=== PATIENT | female | born 1960 | race Caucasian/White ===

== ENCOUNTER 2016-10-04 18:25 | Inpatient (IN) | payer MEDICAID ==
[~2016-10-04] VITALS: Ht 170.2 cm; Wt 52.6 kg
--- NOTE | 2016-10-04 19:07 | NUR ---
iv placed, labs drawn/sent except urine, accu-check done. sbar report to magy henry
[2016-10-04 19:11] LABS: BASOPHILS % (AUTO) 0.7 % (0.0-2.0); EOSINOPHILS # (AUTO) 0.2 K/uL (0.0-0.7); EOSINOPHILS % (AUTO) 2.4 % (0.0-7.0); HEMATOCRIT 40.3 % (37.0-47.0); HEMOGLOBIN 13.4 g/dL (12.0-16.0); LYMPHOCYTES % (AUTO) 28.3 % (20.5-51.5); MEAN CORPUSCULAR HEMOGLOBIN 29.9 uug (27.0-31.0); MEAN CORPUSCULAR HGB CONC 33 g/dL (32.0-37.0); MEAN CORPUSCULAR VOLUME 89.8 fL (81.0-99.0); MONOCYTES # (AUTO) 0.5 K/uL (0.1-1.30); MONOCYTES % (AUTO) 7.7 % (0.0-11.0); NEUTROPHILS # (AUTO) 4.4 K/uL (1.8-8.9); NEUTROPHILS % (AUTO) 60.9 % (38.5-71.5); PLATELET COUNT (AUTO) 360 K/uL (150-450); RED BLOOD CELL COUNT(AUTO) 4.48 MIL/uL (4.20-5.40); RED CELL DISTRIBUTION WIDTH 12.8 % (11.5-14.5); WHITE BLOOD COUNT (AUTO) 7.1 K/uL (4.0-11.2)
[2016-10-04 19:14] LABS: CALCIUM 9.2 mg/dL (8.5-10.1); CREATININE 0.8 mg/dL (0.6-1.3)
[2016-10-04 19:17] LABS: ETHANOL < 3 MG/DL (0-0)
[2016-10-04 19:20] LABS: ALBUMIN 3.7 g/dL (3.4-5.0); BILIRUBIN,DIRECT 0.1 mg/dL (0.0-0.2); BILIRUBIN,TOTAL 0.4 mg/dL (0.2-1.0); TOTAL PROTEIN, SERUM 7.5 g/dL (6.4-8.2)
[2016-10-04] MEDS ORDERED: HYDROCODONE/APAP 5-325MG TABLET PO ONE (20:30)
[2016-10-04] MEDS ORDERED: ONDANSETRON 4 MG/2 ML VIAL IV ONE (20:30)
--- NOTE | 2016-10-04 20:58 | NUR ---
Caden irwin in EDM - 10/04/16 at 2058 by ALY Patient discharged to home in stable conditon. Written and verbal after care instructions given. Patient verbalizes understanding of instructions.
--- NOTE | 2016-10-04 20:58 | NUR ---
Pt. admitted to TELE, under care of Dr. Davidson Belongs List completed
[2016-10-04 21:31] VITALS: BP 129/65
--- NOTE | 2016-10-04 21:31 | NUR ---
PATIENT WAS ADMITTED FROM ER FOR SYNCOPE. PATIENT IS ALERT AND ORIENTED AND VERBALLY ABLE TO LET NEEDS KNOWN. PATIENT CLAIMS THAT SHE'S NOT HOMELESS AND LIVES IN A HOUSE. PATIENT IS A TELE PATIENT THAT IS CURRENTLY NORMAL SINUS RHYTHM. NO APPARENT DISTRESS NOTED. CALL LIGHT WITHIN REACH.
[2016-10-04] MEDS ORDERED: ACETAMINOPHEN 325 MG TABLET PO PRN (22:30)
[2016-10-04] MEDS ORDERED: ONDANSETRON 4 MG/2 ML VIAL IV PRN (22:30)
[2016-10-04] MEDS ORDERED: NYSTATIN CREAM 30 GM TUBE TOP SCH (22:30)
[2016-10-04 23:36] VITALS: BP 130/62
[2016-10-04] MEDS ORDERED: MORPHINE SULFATE 2 MG/1 ML DISP.SYRIN ONE (23:42)
[2016-10-04] MEDS: MORPHINE SULFATE 2 MG/1 ML DISP.SYRIN IV PRN (23:58)
[2016-10-05] MEDS: IV 1/2NS 1000 ML 1,000 ML IV PRN ×2 (00:08→12:33)
[2016-10-05] MEDS ORDERED: ZOLPIDEM 5 MG TABLET PO PRN (01:45)
[2016-10-05] MEDS: ZOLPIDEM 5 MG TABLET PO PRN (01:48)
[2016-10-05] MEDS ORDERED: ZOLPIDEM 5 MG TABLET ONE (01:55)
[2016-10-05 04:00] VITALS: BP 92/50
[2016-10-05] MEDS: MORPHINE SULFATE 2 MG/1 ML DISP.SYRIN IV PRN ×5 (04:01→20:43)
[2016-10-05] MEDS ORDERED: MORPHINE SULFATE 2 MG/1 ML DISP.SYRIN ONE (04:06)
--- NOTE | 2016-10-05 05:42 | NUR ---
PATIENT AWAKE AND ALERT, SLEPT INTERMITTENTLY THROUGHOUT THE NIGHT, DID HAVE SOME C/O PAIN WHICH WERE RELIEVED WITH MEDICATION. PATIENT HAS CALL LIGHT WITHIN REACH, ALL NEEDS ATTENDED TO, WILL CONTINUE TO MONITOR
[2016-10-05 06:17] LABS: BASOPHILS # (AUTO) 0.1 K/uL (0.0-0.2); BASOPHILS % (AUTO) 0.8 % (0.0-2.0); EOSINOPHILS # (AUTO) 0.2 K/uL (0.0-0.7); EOSINOPHILS % (AUTO) 2.5 % (0.0-7.0); HEMATOCRIT 37.7 % (37.0-47.0); LYMPHOCYTES # (AUTO) 2.7 K/uL (0.8-4.8); MEAN CORPUSCULAR HEMOGLOBIN 28.9 uug (27.0-31.0); MEAN CORPUSCULAR HGB CONC 32 g/dL (32.0-37.0); MEAN CORPUSCULAR VOLUME 90.6 fL (81.0-99.0); MONOCYTES # (AUTO) 0.6 K/uL (0.1-1.30); MONOCYTES % (AUTO) 8.7 % (0.0-11.0); NEUTROPHILS # (AUTO) 3.7 K/uL (1.8-8.9); PLATELET COUNT (AUTO) 297 K/uL (150-450); RED BLOOD CELL COUNT(AUTO) 4.16 MIL/uL (4.20-5.40); RED CELL DISTRIBUTION WIDTH 13.1 % (11.5-14.5); WHITE BLOOD COUNT (AUTO) 7.3 K/uL (4.0-11.2)
[2016-10-05 07:10] LABS: ALBUMIN 3.2 g/dL (3.4-5.0); BILIRUBIN,TOTAL 0.6 mg/dL (0.2-1.0); CALCIUM 8.7 mg/dL (8.5-10.1); CREATININE 0.8 mg/dL (0.6-1.3); MAGNESIUM 1.8 mg/dL (1.8-2.4); PHOSPHOROUS 4.7 mg/dL (2.5-4.9); POTASSIUM 4.1 mmol/L (3.5-5.1); TOTAL PROTEIN, SERUM 6.4 g/dL (6.4-8.2)
[2016-10-05 07:26] LABS: THYROID STIMULATING HORMONE 2.176 mIU/mL (0.358-3.740)
--- NOTE | 2016-10-05 08:00 | NUR ---
awake alert and oriented, explained plan of care- verbalized understanding, on room air, denies of shortness of breath, denies if dizziness at this time, Tele SR 70's, up in commode, voided qs, safety measures maintained, call lite within reach
[2016-10-05] MEDS: PANTOPRAZOLE SODIUM 40 MG TABLET.DR PO SCH (08:13)
[2016-10-05] MEDS: NYSTATIN POWDER 15 GM BOTTLE TOP SCH ×2 (08:59→21:31)
--- NOTE | 2016-10-05 09:20 | NUR ---
c/o generalized pain, medicated with Morphine 2mg iv prn, BP 107/57, instructed not to get up alone, call lite within reach
[2016-10-05 11:27] VITALS: BP 99/53
--- NOTE | 2016-10-05 13:15 | NUR ---
@D echo done in the room
--- NOTE | 2016-10-05 13:30 | NUR ---
has rashes on chest and upper back- placed on contact isolation for possible scabies
[2016-10-05] MEDS ORDERED: PERMETHRIN 5% CREAM 60 GM TUBE TP ONE (13:45)
--- NOTE | 2016-10-05 13:58 | NUR ---
seen by Haile BAÑUELOS
[2016-10-05] MEDS: GABAPENTIN 100 MG CAPSULE PO SCH ×3 (15:40→20:37)
[2016-10-05 16:00] VITALS: BP 104/57
--- NOTE | 2016-10-05 16:00 | NUR ---
refused Elimite earlier, states" I don't have scabies and had talked to MD , I am pissed off and i would like to speak to her. I am embarrassed and mad that everybody wears this gown to come to my room, I want that taken out from my record" Luis Palma in formed and spoke to pt. Told by MANAGER PART to D/C isolation
--- NOTE | 2016-10-05 17:14 | NUR ---
contact isolation continued Addendum: 10/05/16 at 1718 by PEPE PARKER RN pt agreed to be on contact isolation
[2016-10-05] MEDS: ONDANSETRON 4 MG/2 ML VIAL IV PRN (17:31)
--- NOTE | 2016-10-05 17:36 | NUR ---
Neurontin not given- 1st dose given at 1540
--- NOTE | 2016-10-05 18:58 | NUR ---
urine sent to lab for UA and C/S- voiding qs to BR width assist, no distress noted, appetite poor, safety measures maintained
[2016-10-05 19:00] LABS: *BILIRUBIN,URIN NEGATIVE (NEGATIVE); *BLOOD, URINE Trace-intact (NEGATIVE); *CLARITY,URINE CLEAR (CLEAR); *COLOR,URINE YELLOW (YELLOW); *KETONES,URINE NEGATIVE (NEGATIVE); *PROTEIN,URINE NEGATIVE (NEGATIVE); *UROBILINOGEN,URINE 0.2 E.U./dl (NORMAL); LEUKOCYTE ESTERASE ,URINE NEGATIVE (NEGATIVE); NITRITE, URINE NEGATIVE (NEGATIVE); PH,URINE 7.5 (5.0-8.0); UGLUCOSE NEGATIVE (NEGATIVE)
--- NOTE | 2016-10-05 19:10 | NUR ---
PATIENT IN BED REMAIN IN CONTACT ISOLATION, NO SOB, NO CHEST PAIN,
[2016-10-05 19:20] LABS: *AMPHETAMINE, URINE NEGATIVE (NEGATIVE); *BARBITURATE, URINE NEGATIVE (NEGATIVE); *CANNABINOID, URINE NEGATIVE (NEGATIVE); *COCCAINE, URINE NEGATIVE (NEGATIVE); *OPIATE, URINE POSITIVE (NEGATIVE); *PHENCYCLIDINE SCREEN,URINE NEGATIVE (NEGATIVE)
[2016-10-05 19:24] LABS: BACTERIA,URINE NONE SEEN /HPF (NONE SEEN); RBC,URINE 0-3 /HPF (0-3); SQUAMOUS EPITHELIAL CELL,UR FEW /HPF (NONE SEEN); WBC,URINE 0-3 /HPF (0-3)
[2016-10-05 20:00] VITALS: BP 97/56
--- NOTE | 2016-10-05 20:00 | NUR ---
PATIENT COMPLAIN OF PAIN, CHECK BP 97/56, HR 56, EXPLAINED TO PATIENT THAT WE HAVE TO WAIT UNTIL SBP INCREASED UP TO 100, OFFERED OTHER PAIN MEDS BUT REFUSED, ALSO REFUSEF PVT PUMP COMPLAIN THAT IT CAUSES HER TO HAVE PAIN ON THE LEGS. EXPLAINED TO PATIENT THAT PVT IS TO PREVENT CLOT FOR FORMING, BUT ANSWERED "I DONT CARE".
[2016-10-05] MEDS: SIMVASTATIN 10 MG TABLET PO SCH (20:36)
--- NOTE | 2016-10-05 20:45 | NUR ---
PATIENT SBP READING WAS LOW AFTER TOOK BP 2X, BP BECAME NORMAL AT THIS TIME GIVEN PAIN MEDS, OFFERED THE PVT TO PUT IT BACK ON STILL REFUSED. NO SOB, NO CHEST PAIN, PAIN MEDS EFFECTIVE AFTER 10 MIN. CONT TO MONITOR.
[2016-10-06] MEDS: MORPHINE SULFATE 2 MG/1 ML DISP.SYRIN IV PRN ×6 (01:00→20:36)
[2016-10-06] MEDS: IV 1/2NS 1000 ML 1,000 ML IV PRN ×2 (01:50→14:37)
[2016-10-06 05:00] VITALS: BP 108/51
[2016-10-06] MEDS: PANTOPRAZOLE SODIUM 40 MG TABLET.DR PO SCH (06:06)
--- NOTE | 2016-10-06 06:16 | NUR ---
PATIENT SLEPT MOST OF THE NIGHT, ON PAIN MANAGEMENT, PAIN MEDS EFFECTIVE AT THIS TIME, ASSIST WITH TOILETING, NO EPISODE OF DIZZINESS,
[2016-10-06 06:57] LABS: BASOPHILS % (AUTO) 0.6 % (0.0-2.0); EOSINOPHILS # (AUTO) 0.2 K/uL (0.0-0.7); HEMATOCRIT 37.3 % (37.0-47.0); HEMOGLOBIN 12.1 g/dL (12.0-16.0); LYMPHOCYTES # (AUTO) 2.2 K/uL (0.8-4.8); LYMPHOCYTES % (AUTO) 34.8 % (20.5-51.5); MEAN CORPUSCULAR HEMOGLOBIN 29.5 uug (27.0-31.0); MEAN CORPUSCULAR HGB CONC 33 g/dL (32.0-37.0); MEAN CORPUSCULAR VOLUME 90.8 fL (81.0-99.0); MONOCYTES # (AUTO) 0.5 K/uL (0.1-1.30); MONOCYTES % (AUTO) 8.6 % (0.0-11.0); NEUTROPHILS # (AUTO) 3.5 K/uL (1.8-8.9); PLATELET COUNT (AUTO) 326 K/uL (150-450); RED BLOOD CELL COUNT(AUTO) 4.11 MIL/uL (4.20-5.40); RED CELL DISTRIBUTION WIDTH 12.9 % (11.5-14.5); WHITE BLOOD COUNT (AUTO) 6.4 K/uL (4.0-11.2)
[2016-10-06 08:14] LABS: ALBUMIN 3.3 g/dL (3.4-5.0); BILIRUBIN,TOTAL 0.4 mg/dL (0.2-1.0); CALCIUM 8.8 mg/dL (8.5-10.1); CREATININE 0.7 mg/dL (0.6-1.3); MAGNESIUM 1.8 mg/dL (1.8-2.4); PHOSPHOROUS 4.2 mg/dL (2.5-4.9); TOTAL PROTEIN, SERUM 6.5 g/dL (6.4-8.2)
[2016-10-06] MEDS: ONDANSETRON 4 MG/2 ML VIAL IV PRN ×2 (08:22→12:23)
[2016-10-06] MEDS: GABAPENTIN 100 MG CAPSULE PO SCH ×3 (08:25→16:33)
[2016-10-06] MEDS: NYSTATIN POWDER 15 GM BOTTLE TOP SCH ×2 (08:26→21:40)
--- NOTE | 2016-10-06 08:35 | NUR ---
awake, oriented x4, medicated for generalized pain with morphine 2mg iv, assisted to BR prior- voided qs, remains on contact isolation, expalined plan of care- verbalized understanding, call lite within reach
[2016-10-06 10:49] VITALS: BP 97/50
--- NOTE | 2016-10-06 11:30 | NUR ---
seen by PT- see notes
[2016-10-06 15:00] VITALS: BP 90/47
--- NOTE | 2016-10-06 18:54 | NUR ---
medicated for pain and nausea this shift, made comfortable as much as possible, contact isolation maintained, all needs attended and met, voiding qs to BR, resting at this time, no distress noted, safety measures maintained, call lite within reach
--- NOTE | 2016-10-06 19:10 | NUR ---
PATIENT ALERT ORIENTED, NO SOB NO CHEST PAIN, CONT ON PAIN MANAGEMENT, CALL LIGHT WITHIN REACH.
[2016-10-06 20:00] VITALS: BP 105/54
[2016-10-06] MEDS: SIMVASTATIN 10 MG TABLET PO SCH (20:34)
[2016-10-07] MEDS: MORPHINE SULFATE 2 MG/1 ML DISP.SYRIN IV PRN ×6 (00:18→16:24)
[2016-10-07] MEDS: ZOLPIDEM 5 MG TABLET PO PRN (01:16)
[2016-10-07] MEDS: IV 1/2NS 1000 ML 1,000 ML IV PRN ×2 (03:32→16:25)
[2016-10-07 04:00] VITALS: BP 134/61
--- NOTE | 2016-10-07 05:33 | NUR ---
PATIENT SLEEP INTERMITTENTLY, ON PAIN MANAGEMENT, PAIN MEDS EFFECTIVE AT THIS TIME, ASSIST WITH TOILETING, TREATMENT CONTINUE ON MULTIPLE RASHES, CONT ON ISOLATION.
[2016-10-07] MEDS: PANTOPRAZOLE SODIUM 40 MG TABLET.DR PO SCH (06:22)
[2016-10-07 07:31] LABS: BILIRUBIN,TOTAL 0.3 mg/dL (0.2-1.0); CALCIUM 8.5 mg/dL (8.5-10.1); CREATININE 0.8 mg/dL (0.6-1.3); MAGNESIUM 1.9 mg/dL (1.8-2.4); PHOSPHOROUS 3.9 mg/dL (2.5-4.9); POTASSIUM 4.1 mmol/L (3.5-5.1); TOTAL PROTEIN, SERUM 6.3 g/dL (6.4-8.2)
--- NOTE | 2016-10-07 08:00 | NUR ---
IN BED WITH NO SIGNS OF DISTRESS EXCEPT FOR GENERALIZED PAIN CONTINUE WITH PAIN MANAGEMENT
[2016-10-07 08:02] LABS: BASOPHILS % (AUTO) 0.3 % (0.0-2.0); EOSINOPHILS # (AUTO) 0.2 K/uL (0.0-0.7); EOSINOPHILS % (AUTO) 2.8 % (0.0-7.0); HEMOGLOBIN 11.3 g/dL (12.0-16.0); LYMPHOCYTES # (AUTO) 2.6 K/uL (0.8-4.8); LYMPHOCYTES % (AUTO) 41.5 % (20.5-51.5); MEAN CORPUSCULAR HEMOGLOBIN 31.3 uug (27.0-31.0); MEAN CORPUSCULAR HGB CONC 34 g/dL (32.0-37.0); MEAN CORPUSCULAR VOLUME 91.1 fL (81.0-99.0); MONOCYTES # (AUTO) 0.6 K/uL (0.1-1.30); MONOCYTES % (AUTO) 9.3 % (0.0-11.0); NEUTROPHILS # (AUTO) 2.9 K/uL (1.8-8.9); NEUTROPHILS % (AUTO) 46.1 % (38.5-71.5); PLATELET COUNT (AUTO) 303 K/uL (150-450); RED CELL DISTRIBUTION WIDTH 12.5 % (11.5-14.5); WHITE BLOOD COUNT (AUTO) 6.3 K/uL (4.0-11.2)
[2016-10-07 08:11] LABS: RED BLOOD CELL COUNT(AUTO) 3.62 MIL/uL (4.20-5.40)
[2016-10-07] MEDS: GABAPENTIN 100 MG CAPSULE PO SCH ×3 (08:34→16:30)
[2016-10-07] MEDS: NYSTATIN POWDER 15 GM BOTTLE TOP SCH ×2 (08:35→20:34)
--- NOTE | 2016-10-07 11:00 | NUR ---
SEEN BY PT/OT SEE NOTES
[2016-10-07 11:40] VITALS: BP 106/56
[2016-10-07] MEDS: ONDANSETRON 4 MG/2 ML VIAL IV PRN (13:00)
--- NOTE | 2016-10-07 13:45 | NUR ---
SPOKE WITH [facility] "Rhonda" reported that pt's scabies scraping on mid chest wall x 2 are negative for scabies. [address] cotto of negative scraping for scabies. No new order received.
--- NOTE | 2016-10-07 15:49 | NUR ---
DC PLAN INITIATED SPRING ASSEMBLER MADE AWARE
[2016-10-07 15:52] VITALS: BP_SYST 139; BP_SYST 98; BP_DIAS 42; BP_DIAS 96
[2016-10-07] MEDS ORDERED: MORPHINE SULFATE 4 MG/1 ML DISP.SYRIN IV ONE (18:00)
--- NOTE | 2016-10-07 18:37 | NUR ---
SEEN BY DR DALTON WITH NEW PAIN MEDS ORDER
--- NOTE | 2016-10-07 19:00 | NUR ---
PATIENT IN BED RESTING, NO SOB, NO CHEST PAIN
[2016-10-07 20:00] VITALS: BP 108/63
[2016-10-07] MEDS: SIMVASTATIN 10 MG TABLET PO SCH (20:31)
[2016-10-07] MEDS: MORPHINE SULFATE 4 MG/1 ML DISP.SYRIN IV PRN (22:00)
--- NOTE | 2016-10-07 23:47 | NUR ---
PATIENT COMPLAIN OF PAIN ON IV SITE, D/C IV, AND REINSERT PERIPHERAL IV AT LEFT ARM, SITE PATENT.
[2016-10-08] MEDS: ZOLPIDEM 5 MG TABLET PO PRN (01:10)
[2016-10-08] MEDS: MORPHINE SULFATE 4 MG/1 ML DISP.SYRIN IV PRN ×7 (01:41→23:05)
[2016-10-08 04:00] VITALS: BP 102/61
[2016-10-08] MEDS: IV 1/2NS 1000 ML 1,000 ML IV PRN ×2 (05:38→17:35)
[2016-10-08] MEDS: PANTOPRAZOLE SODIUM 40 MG TABLET.DR PO SCH (05:38)
--- NOTE | 2016-10-08 07:37 | NUR ---
AWAKE ALERT STILL C/O GENERALIZED PAIN 04/29, CONTINUE WITH PAIN MANAGEMENT ORDERED
[2016-10-08] MEDS: GABAPENTIN 100 MG CAPSULE PO SCH ×3 (08:28→16:16)
[2016-10-08] MEDS: NYSTATIN POWDER 15 GM BOTTLE TOP SCH ×2 (08:30→20:00)
[2016-10-08] MEDS: ONDANSETRON 4 MG/2 ML VIAL IV PRN (08:32)
--- NOTE | 2016-10-08 11:30 | NUR ---
NO ACUTE CHANGE, CONTINUE WITH PAIN MANAGEMENT WITH TEMPORARY RELIEF FROM MORPHINE 4MG Q3 HRS. CLOSELY MONITORED
[2016-10-08 11:51] VITALS: BP 107/56
[2016-10-08 15:34] VITALS: BP 95/52
--- NOTE | 2016-10-08 16:47 | NUR ---
CONTINUE WITH DC PLANNING, SEE HAZARD MITIGATION OFFICER NOTES
[2016-10-08 19:00] VITALS: BP 105/60
[2016-10-08] MEDS: SIMVASTATIN 10 MG TABLET PO SCH (20:00)
--- NOTE | 2016-10-08 23:35 | NUR ---
Patient with no bm for 3-4 days per pt report, MD cotto in nursing station, made aware, with new order for Milk of Mg hs prn, noted and will carry out. will continue to monitor.
[2016-10-09] MEDS: ZOLPIDEM 5 MG TABLET PO PRN (01:06)
[2016-10-09] MEDS: MORPHINE SULFATE 4 MG/1 ML DISP.SYRIN IV PRN ×3 (02:03→08:55)
[2016-10-09] MEDS: MAGNESIUM HYDROXIDE 30 ML LIQUID UDC PO PRN (02:09)
[2016-10-09] MEDS ORDERED: MAGNESIUM HYDROXIDE 30 ML LIQUID UDC ONE (02:17)
[2016-10-09 04:00] VITALS: BP 91/51
[2016-10-09] MEDS: IV 1/2NS 1000 ML 1,000 ML IV PRN ×2 (05:29→17:40)
--- NOTE | 2016-10-09 05:56 | NUR ---
PATIENT SLEPT INTERMITTENTLY, COMPLAINED OF GENERALIZED PAIN THROUGH OUT THE NIGHT AND MEDICATION WAS GIVEN ORDERED WITH SOME RELIEF. PATIENT HAS CALL LIGHT WITHIN REACH, ALL NEEDS ATTENDED TO, WILL CONTINUE TO MONITOR.
[2016-10-09] MEDS: PANTOPRAZOLE SODIUM 40 MG TABLET.DR PO SCH (06:18)
--- NOTE | 2016-10-09 07:30 | NUR ---
PT RECEIVED IN BED AWAKE.PT IS AXOX4.V/S ARE STABLE.NO C/O PAIN NOTED.BREAKFAST SERVED.
[2016-10-09] MEDS: GABAPENTIN 100 MG CAPSULE PO SCH ×3 (08:00→16:02)
[2016-10-09] MEDS: NYSTATIN POWDER 15 GM BOTTLE TOP SCH ×2 (08:01→20:03)
[2016-10-09] MEDS: ONDANSETRON 4 MG/2 ML VIAL IV PRN (09:03)
[2016-10-09 11:22] VITALS: BP 96/51
[2016-10-09] MEDS: HYDROCODONE/APAP 5-325MG TABLET PO PRN ×2 (11:50→21:59)
[2016-10-09] MEDS: MORPHINE SULFATE 2 MG/1 ML DISP.SYRIN IV PRN ×2 (14:32→20:04)
[2016-10-09 15:31] VITALS: BP 96/50
[2016-10-09 19:00] VITALS: BP 104/63
[2016-10-09] MEDS: SIMVASTATIN 10 MG TABLET PO SCH (20:03)
[2016-10-10] MEDS: MORPHINE SULFATE 2 MG/1 ML DISP.SYRIN IV PRN ×6 (00:02→22:08)
[2016-10-10] MEDS: ZOLPIDEM 5 MG TABLET PO PRN (01:27)
[2016-10-10 04:00] VITALS: BP 101/63
--- NOTE | 2016-10-10 05:52 | NUR ---
PATIENT SLEPT INTERMITTENTLY THROUGH OUT THE NIGHT, DID C/O GENERALIZED PAIN THROUGHOUT THE NIGHT, MEDICATION PROVIDED ORDERED FOR PAIN. PATIENT HAS CALL LIGHT WITHIN REACH, ALL NEEDS ATTENDED TO.
[2016-10-10] MEDS: PANTOPRAZOLE SODIUM 40 MG TABLET.DR PO SCH (06:03)
--- NOTE | 2016-10-10 06:22 | NUR ---
PATIENT HAS NOT HAD A BM IN A FEW DAYS, OFFERED PRN MILK OF MG, AND ENCOURAGED TO AMBULATE, PATIENT REFUSED, STATES "I'M NOT CONSTIPATED, WHEN I NEED TO GO I'LL GO." CONTINUES TO COMPLAIN OF GENERALIZED PAIN, OFFERED WARM AND COLD PACKS BUT REFUSES, REQUESTING ONLY PAIN MED, WITH LITTLE RELIEF PER PT REPORT. NO ACUTE DISTRESS NOTED, DOZING ON AND OFF THROUGHOUT NIGHT. BRP WITH ASSISTANCE. SAFETY MAINTAINED. WILL CONTINUE TO MONITOR.
[2016-10-10] MEDS: GABAPENTIN 100 MG CAPSULE PO SCH ×3 (08:24→16:05)
[2016-10-10] MEDS: NYSTATIN POWDER 15 GM BOTTLE TOP SCH ×2 (08:24→20:28)
[2016-10-10 11:47] VITALS: BP 94/60
[2016-10-10] MEDS ORDERED: Gabapentin PO (12:30)
[2016-10-10] MEDS ORDERED: MULT-70 PO (12:30)
[2016-10-10] MEDS ORDERED: Acetaminophen PO (12:30)
[2016-10-10] MEDS ORDERED: OMEG500C PO (12:30)
[2016-10-10] MEDS ORDERED: CALC-880 PO (12:47)
--- NOTE | 2016-10-10 13:09 | NUR ---
Spoke to the patient about her discharge and she was concerned that her friend is not able to pick her up. Asked if the address that we have is the correct address and asked if there are some social issues, she stated that there is no social issue but she is [place] and will be staying a her friend's home. Offered to place her in a usp if needed but she declined. Also offered to call her friends to arrange for her tack picker but she also declined. Offered her a bus token and she agreed with the bus token. She confirmed that she will follow-up with her PCP. Her RN, Tammy, was updated on her discharge plan.
[2016-10-10 15:52] VITALS: BP 115/64
--- NOTE | 2016-10-10 17:26 | NUR ---
PATIENT IN BED RESTING, NO S/S OF NOTES. C/O OF PAIN DURING MY SHIFT, REPORTING FEELING PINS AND NEEDLES OVER HER BODY, "I'M IN SO MUCH PAIN" MEDICATED ORDERED. PATIENT WAS SUPPOSED TO BE DISCHARGE TODAY, AND MORPHINE AND GABAPENTIN WAS DC BY MD. AFTER PATIENT TALKING TO DR. CRISTINA, MEDICATIONS WERE REORDERED AND DECIDED TO STAYED ONE MORE DY BY MD ORDERS. SAFETY AND COMFORT PROVIDED BY STAFF. WILL CONTINUE MONITORING.
[2016-10-10 19:00] VITALS: BP 99/60
[2016-10-10] MEDS: SIMVASTATIN 10 MG TABLET PO SCH (20:25)
[2016-10-10] MEDS: OMEGA-3 FATTY ACIDS/FISH OIL CAPSULE PO SCH (20:25)
[2016-10-11] MEDS: MORPHINE SULFATE 2 MG/1 ML DISP.SYRIN IV PRN ×8 (01:11→22:02)
[2016-10-11] MEDS: ZOLPIDEM 5 MG TABLET PO PRN (01:12)
[2016-10-11 04:00] VITALS: BP 94/45
[2016-10-11] MEDS: ONDANSETRON 4 MG/2 ML VIAL IV PRN ×3 (04:20→16:03)
[2016-10-11] MEDS: PANTOPRAZOLE SODIUM 40 MG TABLET.DR PO SCH (06:09)
[2016-10-11 06:58] LABS: ALBUMIN 3.2 g/dL (3.4-5.0); BILIRUBIN,TOTAL 0.2 mg/dL (0.2-1.0); CALCIUM 8.5 mg/dL (8.5-10.1); CREATININE 0.6 mg/dL (0.6-1.3); MAGNESIUM 1.9 mg/dL (1.8-2.4); PHOSPHOROUS 3.8 mg/dL (2.5-4.9); POTASSIUM 3.6 mmol/L (3.5-5.1); TOTAL PROTEIN, SERUM 6.5 g/dL (6.4-8.2)
[2016-10-11 07:48] LABS: HEMATOCRIT 35.4 % (37.0-47.0); HEMOGLOBIN 11.5 g/dL (12.0-16.0); MEAN CORPUSCULAR HEMOGLOBIN 29.8 uug (27.0-31.0); MEAN CORPUSCULAR HGB CONC 33 g/dL (32.0-37.0); MEAN CORPUSCULAR VOLUME 91.9 fL (81.0-99.0); PLATELET COUNT (AUTO) 342 K/uL (150-450); RED BLOOD CELL COUNT(AUTO) 3.85 MIL/uL (4.20-5.40); RED CELL DISTRIBUTION WIDTH 12.4 % (11.5-14.5); WHITE BLOOD COUNT (AUTO) 7.8 K/uL (4.0-11.2)
[2016-10-11] MEDS: GABAPENTIN 100 MG CAPSULE PO SCH ×3 (09:55→16:04)
[2016-10-11] MEDS: OMEGA-3 FATTY ACIDS/FISH OIL CAPSULE PO SCH ×2 (09:56→21:24)
[2016-10-11] MEDS: MULTIVITAMINS,THERAPEUTIC TABLET PO SCH (09:56)
[2016-10-11] MEDS: NYSTATIN POWDER 15 GM BOTTLE TOP SCH ×2 (09:58→21:52)
[2016-10-11 11:21] LABS: LYMPHOCYTES % (AUTO) 30.7 % (20.5-51.5); MONOCYTES % (AUTO) 8.1 % (0.0-11.0); NEUTROPHILS % (AUTO) 59.3 % (38.5-71.5)
[2016-10-11 11:22] LABS: BASOPHILS % (AUTO) 0.4 % (0.0-2.0); EOSINOPHILS # (AUTO) 0.1 K/uL (0.0-0.7); EOSINOPHILS % (AUTO) 1.5 % (0.0-7.0); LYMPHOCYTES # (AUTO) 2.4 K/uL (0.8-4.8); MONOCYTES # (AUTO) 0.6 K/uL (0.1-1.30); NEUTROPHILS # (AUTO) 4.7 K/uL (1.8-8.9)
[2016-10-11 12:10] VITALS: BP 103/53
[2016-10-11 15:31] VITALS: BP 90/50
--- NOTE | 2016-10-11 16:56 | NUR ---
PATIENT BEEN IN BED RESTING, SLEEPING INTERMITTENTLY. NO S/S OF DISTRESS NOTED. FLACC SCORE ZERO FOR PAIN. FAMILY MEMBERS AT THE BEDSIDE IN THE AFTERNOON. PATIENT WAS ABLE TO TOLERATE HER MEALS WITH NO S/S OF ASPIRATION. SWALLOW EVAL VIDEO WAS DONE TODAY @1600. IV STILL INTACT. BM TODAY. SAFETY AND COMFORT PROVIDED BY STAFF. WILL CONTINUE MONITORING Addendum: 10/11/16 at 1715 by NOHEMI MALOCLM RN WRONG PATIENT
--- NOTE | 2016-10-11 17:18 | NUR ---
PATIENT IN BED RESTING AND WATCHING TV. NO S/S OF DISTRESS NOTED. C/O OF PAIN DURING MY SHIFT. MEDICATED ORDERED. AMBULATED WITH PT, TOLERATED WELL. IV STILL INTACT. SAFETY AND COMFORT PROVIDED BY STAFF. THORACIC BRACE WAS PROVIDED TO PATIENT. WILL CONTINUE MONITORING.
[2016-10-11 19:00] VITALS: BP 90/51
--- NOTE | 2016-10-11 19:00 | NUR ---
PATIENT ALERT ORIENTED, NO SOB, NO CHEST PAIN NOTED,
[2016-10-11] MEDS: SIMVASTATIN 10 MG TABLET PO SCH (21:24)
[2016-10-12] MEDS: MORPHINE SULFATE 2 MG/1 ML DISP.SYRIN IV PRN ×8 (01:01→23:31)
[2016-10-12] MEDS: ZOLPIDEM 5 MG TABLET PO PRN (01:39)
[2016-10-12 04:00] VITALS: BP 97/52
--- NOTE | 2016-10-12 04:55 | NUR ---
PATIENT SLEEP ON AND OFF, ON PAIN MANAGEMENT, PAIN MEDS EFFECTIVE AT THIS TIME, NO SOB, NO CHEST PAIN NOTED, NO S/S OF DISTRESS.
[2016-10-12] MEDS: PANTOPRAZOLE SODIUM 40 MG TABLET.DR PO SCH (06:01)
[2016-10-12] MEDS: GABAPENTIN 100 MG CAPSULE PO SCH ×3 (08:32→17:30)
[2016-10-12] MEDS: MULTIVITAMINS,THERAPEUTIC TABLET PO SCH (08:32)
[2016-10-12] MEDS: OMEGA-3 FATTY ACIDS/FISH OIL CAPSULE PO SCH ×2 (08:32→20:28)
[2016-10-12] MEDS: ONDANSETRON 4 MG/2 ML VIAL IV PRN (08:36)
[2016-10-12] MEDS: NYSTATIN POWDER 15 GM BOTTLE TOP SCH ×2 (08:36→20:28)
[2016-10-12 11:02] VITALS: BP 100/49
--- NOTE | 2016-10-12 17:51 | NUR ---
PATIENT BEEN IN BED RESTING. C/O OF GENERALIZED PAIN DURING THE DAY, MEDICATED ORDERED. REDNESS STILL NOTED UNDER BOTH BREAST, POWDER MEDICATION APPLIED. PT WILL COME IN FRIDAY TO TEACH HER ABOUT THORACIC BRACE PLACEMENT. NO S/S OF DISTRESS NOTED AT THIS MOMENT. GOOD APPETITE. IV STILL INTACT, PATENT, MILD REDNESS AROUND IT BUT IT DOES NOT SEEM INFILTRATED. WILL CONTINUE MONITORING. SAFETY AND COMFORT PROVIDED BY STAFF.
[2016-10-12 19:00] VITALS: BP 90/57
--- NOTE | 2016-10-12 19:29 | NUR ---
PATIENT ALERT ORIENTED ABLE TO MAKE NEEDS KNOWN, ON PAIN MANAGEMENT, PAIN MEDS EFFECTIVE AT THIS TIME, CONT TO MONITOR.
[2016-10-12] MEDS: SIMVASTATIN 10 MG TABLET PO SCH (20:28)
[2016-10-13] MEDS: ZOLPIDEM 5 MG TABLET PO PRN ×2 (01:07→22:05)
[2016-10-13] MEDS: MORPHINE SULFATE 2 MG/1 ML DISP.SYRIN IV PRN ×8 (03:03→23:58)
[2016-10-13 04:00] VITALS: BP 94/47
[2016-10-13] MEDS: PANTOPRAZOLE SODIUM 40 MG TABLET.DR PO SCH (06:05)
--- NOTE | 2016-10-13 07:00 | NUR ---
SLEPT MOST OF THE NIGHT NO SOB NO CHEST PAIN NO S/S OF DISTRESS.
--- NOTE | 2016-10-13 08:00 | NUR ---
Discussed plan of care with pt re: fall precaution and proper pain management. Pt agreeable with plan of care. Applied nystatin under breast folds redness. pt is in no acute distress. Call light is within reach.
[2016-10-13] MEDS: GABAPENTIN 100 MG CAPSULE PO SCH ×3 (08:07→16:24)
[2016-10-13] MEDS: OMEGA-3 FATTY ACIDS/FISH OIL CAPSULE PO SCH ×2 (08:07→20:31)
[2016-10-13] MEDS: MULTIVITAMINS,THERAPEUTIC TABLET PO SCH (08:07)
[2016-10-13] MEDS: NYSTATIN POWDER 15 GM BOTTLE TOP SCH ×2 (08:08→20:33)
[2016-10-13] MEDS: ONDANSETRON 4 MG/2 ML VIAL IV PRN ×4 (09:02→22:05)
[2016-10-13 10:18] LABS: *VITAMIN D 25-OH VIT D 7.2 ng/mL (.); *VITAMIN D 25-OH, D2 <1.0 ng/mL (.); *VITAMIN D 25-OH, D3 7.2 ng/mL (.)
[2016-10-13 11:14] VITALS: BP 101/56
--- NOTE | 2016-10-13 13:00 | NUR ---
Physical therapy saw pt and instructed on how to put on her brace. Pt tolerated physical therapy. Pt sat on chair for 30 mins and unable to tolerate brace and request for it to be taken off. Call light is within reach.
[2016-10-13] MEDS: MAGNESIUM HYDROXIDE 30 ML LIQUID UDC PO PRN (13:23)
[2016-10-13 15:06] VITALS: BP 100/58
--- NOTE | 2016-10-13 18:30 | NUR ---
Plan of care effective. Pts pain managed with morphine no fall noted this shift. Pt is in no acute distress. Call light is within reach.
[2016-10-13 20:00] VITALS: BP 100/50
[2016-10-13] MEDS: SIMVASTATIN 10 MG TABLET PO SCH (20:31)
--- NOTE | 2016-10-13 22:16 | NUR ---
Received this patient awake, asking for her pain meds. & Zofran, plus more soda cans. Medicated for pain & nausea PRN. Patient refused to take her routine fish oil medication & threw it on the floor. Per morning RN, patient has constipation issues. Offered Prune 2 cups of prune juice but patient yelled, stated she's not constipated & she just had a large BM this afternoon. Patient attempted to hit the undersigned w/ unopened prune juice cups. Instructed patient not to do it again because her aggressive behavior is not acceptable. Charge nurse aware.
[2016-10-14] MEDS: MORPHINE SULFATE 2 MG/1 ML DISP.SYRIN IV PRN ×7 (03:00→21:33)
[2016-10-14] MEDS: PANTOPRAZOLE SODIUM 40 MG TABLET.DR PO SCH (05:46)
[2016-10-14 06:00] VITALS: BP 105/50
[2016-10-14] MEDS: MULTIVITAMINS,THERAPEUTIC TABLET PO SCH (08:33)
[2016-10-14] MEDS: GABAPENTIN 100 MG CAPSULE PO SCH ×3 (08:33→16:36)
[2016-10-14] MEDS: ONDANSETRON 4 MG/2 ML VIAL IV PRN ×2 (08:33→16:36)
--- NOTE | 2016-10-14 08:33 | NUR ---
RECEIVED PATIENT AWAKE ALERT AND ORIENTED EATING HER BREAKFAST BUT STATED THAT SHE HAS NAUSEA,MEDICATED WITH ZOFRAN AD ORDERED AT THIS TIME AND WILL OBSERVE.
[2016-10-14] MEDS: OMEGA-3 FATTY ACIDS/FISH OIL CAPSULE PO SCH ×2 (08:37→21:00)
[2016-10-14] MEDS: NYSTATIN POWDER 15 GM BOTTLE TOP SCH ×2 (08:37→21:31)
[2016-10-14 11:00] VITALS: BP 100/61
[2016-10-14 15:05] VITALS: BP 100/66
--- NOTE | 2016-10-14 17:00 | NUR ---
IV SITE CHANGED TO HER LEFT ANTECUBITAL WITH ONE ATTEMPT SHE CONTINUES TO REQUEST FOR PAIN MEDICATIONS EVERY 3 HOURS ORDERED AND HELPFUL.SHE WAS SEEN BY THE PHYSICAL THERAPY WITH CONTINUOUS EDUCATION ON HER BACK BRACE.MADE COMFORTABLE.
--- NOTE | 2016-10-14 19:10 | NUR ---
PATIENT ALERT ORIENTED ABLET TO MAKE NEEDS KNOWN, NO SOB, NO CHEST PAIN, CALL LIGHT WITHIN REACH.
[2016-10-14 20:00] VITALS: BP 112/62
[2016-10-14] MEDS: SIMVASTATIN 10 MG TABLET PO SCH (21:35)
[2016-10-15] MEDS: MORPHINE SULFATE 2 MG/1 ML DISP.SYRIN IV PRN ×6 (00:36→16:23)
[2016-10-15] MEDS: ZOLPIDEM 5 MG TABLET PO PRN (01:47)
--- NOTE | 2016-10-15 05:43 | NUR ---
PATIENT SLEEP INTERMITTENLY, CONT ON PAIN MANAGEMENT, NO SOB NO CHEST PAIN,
--- NOTE | 2016-10-15 05:44 | NUR ---
PATIENT DRINK JUICE, AND BOOST SUPPLEMENT, EAT CRACKERS, IN THE MIDDLE OF THE NIGHT.
[2016-10-15] MEDS: PANTOPRAZOLE SODIUM 40 MG TABLET.DR PO SCH (06:44)
--- NOTE | 2016-10-15 08:30 | NUR ---
RECEIVED PATIENT IN BED AWAKE ALERT AND ORIENTED WITH MULTIPLE COMPLAINTS STILL REQUESTING FOR PAIN MEDICATIONS EVERY 3 HOURS AND STATED THAT HER PAIN IS STILL INTENSE AND HAS NO APPETITE ALSO STATED THAT SHE FEELS THAT HER FOOD IS NOT GOING DOWN SMOOTH IT SHOULD. CALLED AND LEFT MESSAGE FOR DR DALTON.
[2016-10-15] MEDS: OMEGA-3 FATTY ACIDS/FISH OIL CAPSULE PO SCH ×2 (09:00→20:41)
[2016-10-15] MEDS: MULTIVITAMINS,THERAPEUTIC TABLET PO SCH (09:17)
[2016-10-15] MEDS: GABAPENTIN 100 MG CAPSULE PO SCH ×3 (09:17→16:22)
[2016-10-15] MEDS: NYSTATIN POWDER 15 GM BOTTLE TOP SCH ×2 (09:20→20:40)
[2016-10-15] MEDS: ONDANSETRON 4 MG/2 ML VIAL IV PRN ×3 (09:55→20:43)
--- NOTE | 2016-10-15 10:08 | NUR ---
BLOOD PRESSURE AT THIS TIME IS 81/52 PATIENT DENIES SYMPTOMS NEW ORDER FROM MILES BAÑUELOS RECEIVED FOR NS BOLUS AND GIVEN. Addendum: 10/15/16 at 1055 by EMILI GOMES RN ERROR WRONG PATIENT.
[2016-10-15 11:24] VITALS: BP 91/50
--- NOTE | 2016-10-15 12:20 | NUR ---
DR DALTON HERE AND SEEN PATIENT AND AWARE THAT PATIENT IS COMPLAINING OF NO APPETITE AND DIFFICULTY WITH FOOD WITH NEW ORDERS.PATIENT PLACED NOTHING BY MOUTH AT THIS TIME AND PATIENT INSTRUCTED.
--- NOTE | 2016-10-15 13:50 | NUR ---
SLT HERE TO SEE PATIENT AND STATED THAT THE VIDEO SWALLOW WILL BE AROUND 1600 TODAY.PATIENT AWARE NOTHING BY MOUTH STATUS MAINTAINED AND PATIENT EDUCATED.
--- NOTE | 2016-10-15 15:37 | NUR ---
PATIENT PICKED UP BY BED TO RADIOLOGY DEPARTMENT FOR VIDEO SWALLOW STUDIES ORDERED.
[2016-10-15 15:38] VITALS: BP 87/52
[2016-10-15] MEDS ORDERED: BARIUM SULFATE 148 GM SUSP.RECON PO ONE (16:56)
[2016-10-15] MEDS ORDERED: BARIUM SULFATE 240 ML ORAL.SUSP PO ONE (16:56)
[2016-10-15 17:30] VITALS: BP 92/60
--- NOTE | 2016-10-15 18:00 | NUR ---
RESULTS OF THE VIDEO SWALLOW REVIEWED BY DR DALTON WITH NEW ORDERS.PATIENT TOLERATED DIET ORDERED.CURRENT BLOOD PRESSURE NOW IS 92/60
[2016-10-15 19:00] VITALS: BP 91/56
[2016-10-15] MEDS: HYDROCODONE/APAP 5-325MG TABLET PO PRN (19:56)
--- NOTE | 2016-10-15 19:56 | NUR ---
Hand off report to María Grant. Pt in bed, resting. C/o gen pain 01/27, was given [place] as prescribed. safety observed. call light within reach.
[2016-10-15] MEDS: SIMVASTATIN 10 MG TABLET PO SCH (20:41)
--- NOTE | 2016-10-15 21:00 | NUR ---
Dozing intermittently. Cooperative, appears anxious. Needing a lot of TLC and psychological support. C/o nausea, relieved by Zofran. Call jolly in reach and reminded to call RN for assistance.
[2016-10-16] MEDS: ONDANSETRON 4 MG/2 ML VIAL IV PRN ×3 (00:16→08:22)
--- NOTE | 2016-10-16 00:20 | NUR ---
Pt appears to be sleeping during rounds. Called RN c/o "nausea on my throat that's making me have pain all over." Zofran dose repeated. Stated earlier dose was very effective "even better than the Morphine." Reiterated Morphine was DC'd by MD earlier today, refusing [place] or Tylenol. Nursing comfort measures observed at all times. Encouraged to rest/sleep.
[2016-10-16] MEDS: ZOLPIDEM 5 MG TABLET PO PRN (01:34)
--- NOTE | 2016-10-16 04:35 | NUR ---
c/o generalized "usual pain" again, asking for Morphine. Reminded med has been DC'd; asked for Zofran instead. Refuses photos be taken for skin issues under breasts. Prefers be left alone. Instructed to call RN/STATION TENDER for assistance, agreeable.
[2016-10-16 06:00] VITALS: BP 92/54
[2016-10-16] MEDS: GABAPENTIN 100 MG CAPSULE PO SCH ×2 (08:21→12:31)
[2016-10-16] MEDS: MULTIVITAMINS,THERAPEUTIC TABLET PO SCH (08:22)
[2016-10-16] MEDS: NYSTATIN POWDER 15 GM BOTTLE TOP SCH (08:23)
[2016-10-16] MEDS: OMEGA-3 FATTY ACIDS/FISH OIL CAPSULE PO SCH (08:24)
[2016-10-16] MEDS: HYDROCODONE/APAP 5-325MG TABLET PO PRN ×2 (08:34→12:33)
[2016-10-16] MEDS ORDERED: PANTOPRAZOLE SODIUM 40 MG VIAL IV SCH (09:00)
[2016-10-16 11:28] VITALS: BP 101/53
--- NOTE | 2016-10-16 15:45 | NUR ---
Pt. given discharge instructions and verbalized understanding. Declined offer of a walker. Iv removed from left forearm with inner cannula intact. Dressing applied. No redness/swelling noted. Pt. left unit with all belongings accompained by MANUAL TRAINING TEACHER to awaiting taxi.
== END 2016-10-16 15:45 | disposition home or self-care (01) | DRG 48 ==
LOC: ER 18:28 → TELE-TD 20:48 → TELE 21:01 → MED 10-05 12:51
PROVIDERS: ADMIT Internal Medicine; ATTEND Internal Medicine
DX: G90.8 Other disorders of autonomic nervous system (principal); I95.9 Hypotension, unspecified; E44.0 Moderate protein-calorie malnutrition; M48.54XA Collapsed vertebra, not elsewhere classified, thoracic region, initial encounter for fracture; E88.09 Other disorders of plasma-protein metabolism, not elsewhere classified; R13.10 Dysphagia, unspecified; G62.9 Polyneuropathy, unspecified; F17.210 Nicotine dependence, cigarettes, uncomplicated; F32.9 Major depressive disorder, single episode, unspecified; B36.8 Other specified superficial mycoses; L21.9 Seborrheic dermatitis, unspecified; F41.9 Anxiety disorder, unspecified; Z85.820 Personal history of malignant melanoma of skin; R20.9 Unspecified disturbances of skin sensation; G47.00 Insomnia, unspecified; M81.0 Age-related osteoporosis without current pathological fracture; R73.9 Hyperglycemia, unspecified; M50.30 Other cervical disc degeneration, unspecified cervical region; R21 Rash and other nonspecific skin eruption; R51 Headache; M54.10 Radiculopathy, site unspecified; Z68.1 Body mass index [BMI] 19.9 or less, adult
CPT/HCPCS: 36415; 70030-TC; 70450; 71010; 72072; 72100; 72125; 74230; 80307; 83735; 84100; 84443; 85025; 85730; 87086; 92506; 92611; 93005; 93307; 97001; 97110; 97116; 97530; A4663; C9113; G6040-TC; J2270; J2405; J3490

== ENCOUNTER 2016-11-01 11:29 | Emergency (ER) | payer MEDICAID ==
[~2016-11-01] VITALS: Ht 167.6 cm; Wt 47.6 kg
[~2016-11-01 11:29] MED LIST: Acetaminophen PO; CALC-880 PO; Gabapentin PO; MULT-70 PO; OMEG500C PO
--- NOTE | 2016-11-01 11:41 | NUR ---
Caden irwin in EDM - 11/01/16 at 1154 by LOWELL Pt ambulatory w/ steady gait to bed 3, pt was outside digging through the trash looking for cigarettes , before coming into er. Pt was just seen at [facility] and looking for pain meds today.
--- NOTE | 2016-11-01 11:48 | NUR ---
Dr gomez at bedside for exam.
--- NOTE | 2016-11-01 11:55 | NUR ---
Pt refused aci , after speaking w/ dr gomez .
[2016-11-01 11:56] VITALS: BP 127/78
== END 2016-11-01 11:57 | disposition home or self-care (01) ==
LOC: ER 11:29
DX: R55 Syncope and collapse (principal); F32.9 Major depressive disorder, single episode, unspecified; R51 Headache; F17.200 Nicotine dependence, unspecified, uncomplicated; C44.90 Unspecified malignant neoplasm of skin, unspecified
CPT/HCPCS: A4663

== ENCOUNTER 2019-01-03 04:42 | Inpatient (IN) | payer MEDICARE, OTHER ==
[~2019-01-03] VITALS: Ht 170.2 cm; Wt 56.7 kg
--- NOTE | 2019-01-03 05:00 | NUR ---
PATIENT WAS MSE BY DR DIAZ IN ROOM 04B. PATIENT A & O X3.
[2019-01-03] MEDS ORDERED: KETOROLAC TROMETHAMINE 60 MG INJ IM ONE ×2 (05:15)
[2019-01-03] MEDS ORDERED: HYDROCODONE/APAP 10-325 MG TABLET PO ONE (08:00)
--- NOTE | 2019-01-03 08:15 | NUR ---
PT C/O PAIN ON THE LEFT GROIN LEVEL 10. PT REFUSED THE NORCO 10/325 TAB THAT MD ORDERED FOR HER. PT STATED IT DOES NOT WORK FOR HER PAIN. DR SOLARES AWARE.
[2019-01-03] MEDS ORDERED: HYDROCODONE/APAP 10-325 MG TABLET ONE (08:17)
--- NOTE | 2019-01-03 08:30 | NUR ---
SEEN AND EXAMINED BY DR SOLARES. AWAITING FOR CT SCAN RESULT AT THIS TIME.
--- NOTE | 2019-01-03 08:40 | NUR ---
PT BECAME VERY ANGRY AND IMPATIENT. DECIDED TO WALK OUT THE DOOR WITH INSISTENCE AND ABLE TO AMBULATE ON HER OWN. PT STATED SHE WANTED TO JUST HAVE SOME FRESH AIR OUTSIDE.
--- NOTE | 2019-01-03 08:50 | NUR ---
PT BACK IN BED AT THIS TIME.
--- NOTE | 2019-01-03 09:45 | NUR ---
INSERTED AN IV HEPLOCK G22 ON L FA ORDERED. BLOOD DRAWN FROM THE LAB DONE.
[2019-01-03] MEDS ORDERED: ONDANSETRON 4 MG/2 ML VIAL IV ONE (10:00)
[2019-01-03] MEDS ORDERED: MORPHINE SULFATE 2 MG/1 ML DISP.SYRIN IV ONE (10:00)
[2019-01-03 10:05] LABS: BASOPHILS # (AUTO) 0.1 K/uL (0.0-8.0); BASOPHILS % (AUTO) 0.8 % (0.0-2.0); EOSINOPHILS # (AUTO) 0.2 K/uL (0.0-0.7); EOSINOPHILS % (AUTO) 2.5 % (0.0-7.0); HEMATOCRIT 41.6 % (31.2-41.9); HEMOGLOBIN 13.6 g/dL (10.9-14.3); LYMPHOCYTES # (AUTO) 2.4 K/uL (20.0-40.0); LYMPHOCYTES % (AUTO) 32.1 % (20.5-51.5); MEAN CORPUSCULAR HEMOGLOBIN 29.7 uug (24.7-32.8); MEAN CORPUSCULAR HGB CONC 33 g/dL (32.3-35.6); MONOCYTES # (AUTO) 0.5 K/uL (2.0-10.0); MONOCYTES % (AUTO) 6.8 % (0.0-11.0); NEUTROPHILS # (AUTO) 4.4 K/uL (1.8-8.9); NEUTROPHILS % (AUTO) 57.8 % (38.5-71.5); PLATELET COUNT (AUTO) 420 K/uL (179-408); RED BLOOD CELL COUNT(AUTO) 4.57 MIL/uL (3.63-4.92); WHITE BLOOD COUNT (AUTO) 7.6 K/uL (3.8-11.8)
--- NOTE | 2019-01-03 10:05 | NUR ---
PT MEDICATED WITH MORPHINE 2MG SLOW IVP ORDERED FOR C/O PAIN LEVEL 10.
[2019-01-03] MEDS ORDERED: MORPHINE SULFATE 2 MG/1 ML DISP.SYRIN ONE (10:08)
[2019-01-03] MEDS ORDERED: ONDANSETRON 4 MG/2 ML VIAL ONE (10:08)
--- NOTE | 2019-01-03 10:15 | NUR ---
PT TAKEN TO CT VIA [facility] FOR CT OF HEAD ORDERED.
[2019-01-03 10:26] LABS: CREATININE 0.8 mg/dL (0.6-1.3)
[2019-01-03 10:32] LABS: BILIRUBIN,DIRECT 0.1 mg/dL (0.0-0.2); BILIRUBIN,TOTAL 0.4 mg/dL (0.2-1.0); TOTAL PROTEIN, SERUM 8.4 g/dL (6.4-8.2)
--- NOTE | 2019-01-03 11:30 | NUR ---
PT SEEN AND EXAMINED BY MARJ PLANNING AIDE AND AWARE OF ADMISSION.
--- NOTE | 2019-01-03 12:30 | NUR ---
REPORT GIVEN TO SURY MCKENNA.
[2019-01-03] MEDS ORDERED: ACETAMINOPHEN 325 MG TABLET PO PRN (12:45)
[2019-01-03] MEDS ORDERED: ZOLPIDEM 5 MG TABLET PO PRN (12:45)
[2019-01-03] MEDS ORDERED: ONDANSETRON 4 MG/2 ML VIAL IV PRN (12:45)
[2019-01-03] MEDS ORDERED: MAGNESIUM HYDROXIDE 30 ML LIQUID UDC PO PRN (12:45)
[2019-01-03] MEDS ORDERED: HYDROCODONE/APAP 5-325MG TABLET PO PRN (12:45)
[2019-01-03] MEDS ORDERED: HYDROMORPHONE 1 MG/1 ML DISP.SYRIN IV PRN (12:45)
[2019-01-03 13:10] VITALS: BP 113/64
--- NOTE | 2019-01-03 13:30 | NUR ---
RECEIVED PATIENT FROM ER VIA WHEELCHAIR, ADMITTED TO MEDSURG UNIT WITH DX OF LEFT HIP AND LEFT RIB PAIN. PATIENT ALERT AND ORIENTED X4 , ABLE TO MAKE NEEDS KNOWN,, NO SOB NOTED AT THIS TIME, C/O OF PAIN AND PRN PAIN MEDICATIONS GIVEN. IV INTACT AND PATENT. WILL CONTINUE TREATMENT PLAN
--- NOTE | 2019-01-03 13:40 | NUR ---
PATIENT ALERT AND ORIENTED X4, ASK PATIENT IF I CAN DO BODY ASSESSMENT AND PATIENT APPLIED THAT HER SKIN IS INTACT AND SHE DOESN'T WANT ANY PICTURES TAKEN.
[2019-01-03 15:02] VITALS: BP 114/49
[2019-01-03] MEDS ORDERED: LOPERAMIDE HCL 1 MG/5 ML UDC PO PRN (16:45)
[2019-01-03] MEDS: HYDROMORPHONE 1 MG/1 ML DISP.SYRIN IV PRN ×3 (16:51→22:30)
[2019-01-03] MEDS ORDERED: LOPERAMIDE HCL 2 MG CAPSULE PO PRN (17:00)
[2019-01-03] MEDS ORDERED: hydrOXYzine HCL 50 MG TABLET PO ONE (18:30)
--- NOTE | 2019-01-03 18:30 | NUR ---
PATIENT IN BED C/O PAIN AND PAIN PRN MEDICATIONS GIVEN ORDERED , TOLERATED WELL. PROVIDE COMFORT AND ALL NEEDS ATTENDED. IV SITES INTACT AND PATENT, WILL CONTINUE TO MONITOR.
--- NOTE | 2019-01-03 19:30 | NUR ---
Report received. Patient AAO, NAD noted.
[2019-01-03 19:57] VITALS: BP 101/45
--- NOTE | 2019-01-03 19:57 | NUR ---
Medicated with Dilaudid IV for L rib cage pain. With visitor.
--- NOTE | 2019-01-03 22:30 | NUR ---
Patient called, wants something to eat and something for pain. Puddingdeepti given. Medicated with Dilaudid IV for pain.
--- NOTE | 2019-01-04 00:37 | NUR ---
Patient called; wants her Ambien for sleep. Medication given.
[2019-01-04] MEDS: HYDROMORPHONE 1 MG/1 ML DISP.SYRIN IV PRN (01:28)
--- NOTE | 2019-01-04 01:28 | NUR ---
Medicated again with Dilaudid IV for L hip and L rib cage pain.
--- NOTE | 2019-01-04 02:00 | NUR ---
Patient called and wants to wear her T shirt claiming that the gown is bothering her. Appears to get overwhelmed and agitated easily even with little things such as when her phone dropped on the floor. All her needs were met all night. Advised appropriately why she needs to wear a hospital gown. "I haven't slept for 36H!" patient states in a loud voice. Was given Ambien @ 0036. Patient insisted to wear her shirt. When offered help, patient screamed "I don't need help!". Ambulated to the BR with a walker.
--- NOTE | 2019-01-04 02:25 | NUR ---
Patient agitated, demanding to go out and smoke. Explained to patient that she doesn't have order to smoke and MD had ordered nicotine patch. Insisted to go out and smoke. vegetable canner Catracho talked to patient, but patient all dressed up and ignored discharge rn's advise. Started walking out of the room with a walker. Fouzia cagle called.
--- NOTE | 2019-01-04 02:35 | NUR ---
With a walker patient pacing the halls and now approaching the elevators. Security guards, RN and MT with patient. "I talked to the doctor about smoking, he knows about it!" patient talking in a loud voice. Patient advised appropriately about MD's order of Nicotine patch and no order for smoking. Patient's behavior escalating. Call placed to [employer].
--- NOTE | 2019-01-04 02:40 | NUR ---
Patient continuously monitored by Guards and Bud ROB. With increased agitation, pacing and threw her walker on the wall. Security guards talked to patient about safety of everyone. Saqib Valverde GOLF BALL MOLDER called back and stated patient can not smoke and if she insisted she can go AMA.
--- NOTE | 2019-01-04 02:41 | NUR ---
Patient's informed of WET PRESS TENDER's order, refused to sign AMA document and still insisting to go down and smoke. "I just want to smoke and come back! patient screaming.
--- NOTE | 2019-01-04 02:43 | NUR ---
AMA paper presented to patient; she scribbles on it and finally signed document. Patient left AMA still agitated and mumbling. Manager Audit Nisa was on the floor during the whole incident.
[2019-01-04] MEDS ORDERED: NICOTINE 14 MG/24HR PATCH TD SCH (09:00)
[2019-01-04] MEDS ORDERED: DICL75TA5 PO (14:53)
[2019-01-04] MEDS ORDERED: GABA-536 PO (14:53)
[2019-01-04] MEDS ORDERED: ALEN70TA3 PO (14:54)
[2019-01-04] MEDS ORDERED: LISI10TA5 PO (15:02)
[2019-01-04] MEDS ORDERED: CALC500T3 PO (15:02)
[2019-01-04] MEDS ORDERED: TRAM50TA2 PO (15:04)
[2019-01-04] MEDS ORDERED: DICL100G16 TP (15:05)
[2019-01-04] MEDS ORDERED: TRIA15CR2 TP (15:06)
== END 2019-01-04 02:43 | disposition left against medical advice (07) | DRG 543 ==
LOC: ER 05:03 → MEDSURG3 12:34
PROVIDERS: ADMIT Nurse Practitioner Acute Care; ATTEND Nurse Practitioner Acute Care
DX: M84.650A Pathological fracture in other disease, pelvis, initial encounter for fracture (principal); E27.40 Unspecified adrenocortical insufficiency; M85.89 Other specified disorders of bone density and structure, multiple sites; M84.68XD Pathological fracture in other disease, other site, subsequent encounter for fracture with routine healing; Z87.820 Personal history of traumatic brain injury; S92.901D Unspecified fracture of right foot, subsequent encounter for fracture with routine healing; X58.XXXD Exposure to other specified factors, subsequent encounter; M84.68XA Pathological fracture in other disease, other site, initial encounter for fracture; Z85.820 Personal history of malignant melanoma of skin; Z80.0 Family history of malignant neoplasm of digestive organs; F17.210 Nicotine dependence, cigarettes, uncomplicated; L21.9 Seborrheic dermatitis, unspecified; D47.3 Essential (hemorrhagic) thrombocythemia; Z87.81 Personal history of (healed) traumatic fracture; F41.9 Anxiety disorder, unspecified; F32.9 Major depressive disorder, single episode, unspecified; Z82.0 Family history of epilepsy and other diseases of the nervous system; Z80.8 Family history of malignant neoplasm of other organs or systems; R73.9 Hyperglycemia, unspecified
CPT/HCPCS: 36415; 70030-TC; 70450; 71101; 72170; 72192; 82533; 85025; 85730; 93005; A4663; G0378; J1170; J1885; J2270; J2405

== ENCOUNTER 2019-01-04 03:33 | Inpatient (IN) | payer MEDICARE, OTHER ==
[~2019-01-04] VITALS: Ht 152.4 cm; Wt 56.7 kg
--- NOTE | 2019-01-04 03:40 | NUR ---
Pt comes to ER for re-admission to med/surg unit. Pt recently went AMA and states she just wanted to go outside for 5 minutes. Pt is calm and cooperative at this time.
--- NOTE | 2019-01-04 03:43 | NUR ---
Called [facility] to page Lisa Valverde NP. Awaiting call back.
--- NOTE | 2019-01-04 03:50 | NUR ---
mrsa swab refused
--- NOTE | 2019-01-04 03:52 | NUR ---
Pt. admitted to Med/Surg, under care of Lisa Valverde. Diagnosis: Pelvic Fracture Belongs List completed
[2019-01-04] MEDS ORDERED: Z GUARD REMEDY PASTE 57 GM TUBE TOP PRN (04:00)
[2019-01-04] MEDS ORDERED: ACETAMINOPHEN 325 MG TABLET PO PRN (04:00)
[2019-01-04] MEDS ORDERED: MAGNESIUM HYDROXIDE 30 ML LIQUID UDC PO PRN (04:00)
--- NOTE | 2019-01-04 04:30 | NUR ---
patient refusing SENIOR IT BUSINESS ANALYST to check her purse and belongings, hospital gown, and skin check. Addendum: 01/07/19 at 2038 by ROSIE MIRELES RN patient also refused photos.
[2019-01-04] MEDS: PANTOPRAZOLE SODIUM 40 MG TABLET.DR PO SCH (06:21)
[2019-01-04] MEDS: HYDROMORPHONE 1 MG/1 ML DISP.SYRIN IV PRN ×5 (06:25→22:21)
--- NOTE | 2019-01-04 06:25 | NUR ---
c/o of pain. administered dilaudid. tolerated well.
--- NOTE | 2019-01-04 06:44 | NUR ---
patient refused protonix. educated patient regarding medication and still refused. Protonix returned to [facility].
[2019-01-04 07:16] LABS: BASOPHILS # (AUTO) 0.1 K/uL (0.0-8.0); EOSINOPHILS # (AUTO) 0.2 K/uL (0.0-0.7); LYMPHOCYTES % (AUTO) 16.4 % (20.5-51.5)
[2019-01-04 07:30] LABS: BASOPHILS % (AUTO) 1.2 % (0.0-2.0); EOSINOPHILS % (AUTO) 2.1 % (0.0-7.0); HEMATOCRIT 40.4 % (31.2-41.9); HEMOGLOBIN 12.8 g/dL (10.9-14.3); LYMPHOCYTES # (AUTO) 1.8 K/uL (20.0-40.0); MEAN CORPUSCULAR HEMOGLOBIN 29.4 uug (24.7-32.8); MEAN CORPUSCULAR HGB CONC 32 g/dL (32.3-35.6); MEAN CORPUSCULAR VOLUME 92.6 fL (75.5-95.3); MONOCYTES # (AUTO) 0.7 K/uL (2.0-10.0); MONOCYTES % (AUTO) 6.2 % (0.0-11.0); NEUTROPHILS # (AUTO) 7.9 K/uL (1.8-8.9); NEUTROPHILS % (AUTO) 74.1 % (38.5-71.5); RED BLOOD CELL COUNT(AUTO) 4.37 MIL/uL (3.63-4.92)
[2019-01-04 07:31] LABS: THYROID STIMULATING HORMONE 5.233 mIU/mL (0.358-3.740)
[2019-01-04 07:35] LABS: PLATELET COUNT (AUTO) 309 K/uL (179-408); WHITE BLOOD COUNT (AUTO) 10.7 K/uL (3.8-11.8)
--- NOTE | 2019-01-04 08:08 | NUR ---
UP AMBULATORY WITH THE FRONT WHEEL WALKER WITH SLOW STEADY GAIT WANTING COFFEE GIVEN REQUESTED CALL LIGHTS AND PERSONAL BELONGINGS PLACED WITHIN EASY REACH WILL CONTONUE TO OBSERVE.
[2019-01-04] MEDS: NICOTINE 21 MG/24HR PATCH TD SCH (08:56)
--- NOTE | 2019-01-04 08:56 | NUR ---
PATIENT REFUSED NICOTINE PATCH ORDERED OFFERED TO HER 2 TIMES STATED WANTS TO GO OUT AND SMOKE INFORMED HER THAT THIS IS A NON SMOKING FACILITY AND WILL BENEFIF FROM THE PATCH STATED WILL TALK TO HER DOCTOR ABOUT GOING OUT TO SMOKE.
[2019-01-04 09:10] LABS: BILIRUBIN,TOTAL 0.2 mg/dL (0.2-1.0); CREATININE 0.9 mg/dL (0.6-1.3); PHOSPHOROUS 4.1 mg/dL (2.5-4.9); POTASSIUM 4.2 mmol/L (3.5-5.1); TOTAL PROTEIN, SERUM 7.9 g/dL (6.4-8.2)
[2019-01-04] MEDS: ONDANSETRON 4 MG/2 ML VIAL IV PRN ×2 (10:21→18:21)
[2019-01-04 11:07] VITALS: BP 99/51
[2019-01-04] MEDS ORDERED: DICL75TA5 PO (14:53)
[2019-01-04] MEDS ORDERED: GABA-536 PO (14:53)
[2019-01-04] MEDS ORDERED: ALEN70TA3 PO (14:54)
[2019-01-04] MEDS ORDERED: CALC500T3 PO (15:02)
[2019-01-04] MEDS ORDERED: LISI10TA5 PO (15:02)
[2019-01-04] MEDS ORDERED: TRAM50TA2 PO (15:04)
[2019-01-04] MEDS ORDERED: DICL100G16 TP (15:05)
[2019-01-04] MEDS ORDERED: TRIA15CR2 TP (15:06)
[2019-01-04 15:21] VITALS: BP 96/46
--- NOTE | 2019-01-04 15:56 | NUR ---
DR LINDSEY HERE SEEN AND EVALUATED PATIENT WITH NEW ORDERS AND NOTED.
--- NOTE | 2019-01-04 17:29 | NUR ---
CONTINUE ON PAIN MANAGEMENT ORDERED AND HELPFUL ABLE TO AMBULATE SHORT DISTANCES WITH THE FRONT WHEEL WALKER AND BACK TO BED. MADE COMFORTABLE AND WILL CONTINUE TO OBSERVE.
[2019-01-04 19:50] VITALS: BP 119/55
--- NOTE | 2019-01-04 20:00 | NUR ---
RECEIVED PATIENT AWAKE IN BED. A/O X4. C/O PAIN, ON LEFT HIP AND LEFT RIB AREA. PATIENT AWARE PAIN MEDICATION IS NOT DUE UNTIL 2219. VERBALIZED UNDERSTANDING. VSS. H/L INTACT AND PATENT. NO RESP. DISTRESS NOTED. CALL LIGHT IN REACH. ALL NEEDS ATTENDED. WILL CONTINUE TO MONITOR.
[2019-01-04] MEDS: SIMVASTATIN 20 MG TABLET PO SCH ×2 (20:09→20:12)
[2019-01-04] MEDS: DOCUSATE SODIUM 250 MG CAPSULE PO SCH ×2 (20:09→20:12)
[2019-01-05] MEDS ORDERED: ZOLPIDEM 5 MG TABLET PO ONE (00:30)
[2019-01-05] MEDS: HYDROMORPHONE 1 MG/1 ML DISP.SYRIN IV PRN ×6 (03:11→23:50)
[2019-01-05 05:00] VITALS: BP 109/49
[2019-01-05] MEDS ORDERED: ALENDRONATE SODIUM 70 MG TABLET PO SCH (06:00)
[2019-01-05] MEDS: PANTOPRAZOLE SODIUM 40 MG TABLET.DR PO SCH (06:02)
[2019-01-05 06:15] LABS: BASOPHILS # (AUTO) 0.1 K/uL (0.0-8.0); BASOPHILS % (AUTO) 0.9 % (0.0-2.0); EOSINOPHILS # (AUTO) 0.2 K/uL (0.0-0.7); EOSINOPHILS % (AUTO) 3.7 % (0.0-7.0); HEMATOCRIT 36.4 % (31.2-41.9); HEMOGLOBIN 11.8 g/dL (10.9-14.3); LYMPHOCYTES # (AUTO) 2.1 K/uL (20.0-40.0); MEAN CORPUSCULAR HEMOGLOBIN 29.8 uug (24.7-32.8); MEAN CORPUSCULAR HGB CONC 33 g/dL (32.3-35.6); MEAN CORPUSCULAR VOLUME 91.7 fL (75.5-95.3); MONOCYTES # (AUTO) 0.5 K/uL (2.0-10.0); MONOCYTES % (AUTO) 8.1 % (0.0-11.0); NEUTROPHILS # (AUTO) 3.7 K/uL (1.8-8.9); NEUTROPHILS % (AUTO) 55.3 % (38.5-71.5); PLATELET COUNT (AUTO) 341 K/uL (179-408); RED BLOOD CELL COUNT(AUTO) 3.98 MIL/uL (3.63-4.92); WHITE BLOOD COUNT (AUTO) 6.7 K/uL (3.8-11.8)
[2019-01-05 06:31] LABS: CREATININE 0.8 mg/dL (0.6-1.3); MAGNESIUM 1.8 mg/dL (1.8-2.4); PHOSPHOROUS 3.6 mg/dL (2.5-4.9); POTASSIUM 3.9 mmol/L (3.5-5.1)
--- NOTE | 2019-01-05 07:50 | NUR ---
RECEIVED PATIENT AWAKE ALERT AND ORIENTED STATED HAVING 10 OUT 10 PAIN IN HER BACK MEDICATED ORDERED ABLE TO AMBULATED WITH THE FRONT WHEEL WALKER WITH WBAT CALL LIGHTS AND PERSONAL BELONGINGS PLACED WITHIN EASY REACH MADE COMFRTABLE AND WILL CONTINUE TO OBSERVE.
[2019-01-05] MEDS: GABAPENTIN 400 MG CAPSULE PO SCH ×3 (08:12→16:08)
[2019-01-05] MEDS: CALCIUM CARBONATE 500 MG TABLET PO SCH (08:12)
[2019-01-05] MEDS: NICOTINE 21 MG/24HR PATCH TD SCH (08:15)
[2019-01-05] MEDS: LISINOPRIL 10 MG TABLET PO SCH (08:16)
[2019-01-05] MEDS ORDERED: DICLOFENAC 75 MG TABLET.DR PO SCH (09:00)
[2019-01-05] MEDS: ONDANSETRON 4 MG/2 ML VIAL IV PRN ×2 (10:26→19:46)
[2019-01-05 10:55] VITALS: BP 100/52
[2019-01-05 15:35] VITALS: BP 97/53
--- NOTE | 2019-01-05 17:53 | NUR ---
ABLE TO AMBULATE WITH THE FRONT WHEEL WALKER WITH WEIGHT BEARING TOLERATED PAIN MEDICATIONS GIVEN ORDERED MADE COMFORTABLE AND WILL CONTINUE TO OBSERVE.
--- NOTE | 2019-01-05 19:30 | NUR ---
Received patient in bed, awake and alert. No signs of acute distress noted. Complains of pain and nausea. Will administer PRN medication. No complaints of SOB. Heplock on the left forearm is intact and patent. Patient able to ambulate to restroom with FWW. Safety measures initiated. Bed is low and locked, call light within reach. Will continue to monitor.
[2019-01-05] MEDS: SIMVASTATIN 20 MG TABLET PO SCH (20:21)
[2019-01-05] MEDS: DOCUSATE SODIUM 250 MG CAPSULE PO SCH (20:21)
--- NOTE | 2019-01-05 20:30 | NUR ---
Patient refused simvastatin, explained that her cholesterol level was high but still refused. Also refused colace, says she doesn't have trouble with bowel movements. Will continue to monitor.
[2019-01-05 20:52] VITALS: BP_SYST 107; BP_SYST 147; BP_DIAS 47; BP_DIAS 74
[2019-01-06] MEDS: ZOLPIDEM 5 MG TABLET PO PRN ×2 (00:34→23:17)
[2019-01-06] MEDS: ONDANSETRON 4 MG/2 ML VIAL IV PRN ×3 (04:44→21:08)
[2019-01-06] MEDS: HYDROMORPHONE 1 MG/1 ML DISP.SYRIN IV PRN ×5 (04:44→21:08)
[2019-01-06 06:00] VITALS: BP 105/52
--- NOTE | 2019-01-06 06:03 | NUR ---
Patient slept intermittently throughout shift, complaining of pain. PRN pain medication given. No signs of acute distress noted. Vitals WNL. Patient ambulated to restroom with FWW with a steady gait. Safety measures given.
[2019-01-06] MEDS: PANTOPRAZOLE SODIUM 40 MG TABLET.DR PO SCH (06:20)
--- NOTE | 2019-01-06 07:30 | NUR ---
RECEIVED PATIENT IN BED, AWAKE. AOX4. PATIENT COMPLAINS OF LEFT LEG PAIN AND STATED THAT IT IS TOLERABLE, AND WILL WAIT FOR PAIN MEDICATION IN 1 HR. LT FA IV HL. SAFETY AND FALL PREVENTION IN PLACE. BED IN LOW POSITION AND LOCKED. WILL CONTINUE TO MONITOR.
[2019-01-06] MEDS: GABAPENTIN 400 MG CAPSULE PO SCH ×3 (08:25→17:05)
[2019-01-06] MEDS: NICOTINE 21 MG/24HR PATCH TD SCH ×3 (08:25→09:00)
[2019-01-06] MEDS: LISINOPRIL 10 MG TABLET PO SCH (08:25)
[2019-01-06] MEDS: CALCIUM CARBONATE 500 MG TABLET PO SCH (08:25)
[2019-01-06 11:40] VITALS: BP 114/48
[2019-01-06] MEDS: HYDROCODONE/APAP 5-325MG TABLET PO PRN ×2 (11:57→23:18)
[2019-01-06 16:25] VITALS: BP 110/55
[2019-01-06] MEDS ORDERED: Z GUARD REMEDY PASTE 57 GM TUBE TOP PRN (18:15)
--- NOTE | 2019-01-06 18:23 | NUR ---
PATIENT AWAKE ALERT X4 THROUGHOUT THE SHIFT. PATIENT COMPLAINS OF PAIN TO LEFT LEG AND PELVIS AREA. MEDICATIONS GIVEN ORDERED. LEFT FA IV INTACT. PATIENT REFUSES NICOTEIN PATCH, PROTONIX AND LISINOPRIL IN AM. PATIENT FOUND TO HAVE REDNESS TO BILATERAL BREAST FOLDS BUT REFUSED TO TAKE A PICTURE. VITAL SIGNS STABLE THROUGHOUT THE SHIFT. WILL GIVE REPORT TO ONCOMING NURSE.
--- NOTE | 2019-01-06 20:00 | NUR ---
Received pt. in bed alert oriented x4. Pt. has IV in L forearm 20 gauge hep lock. IV is patent, intact, and no pain at IV site stated. Pt. states she has pain to her left leg area. Assessed pt.'s pain and informed pt. when pain medication is due. Pt. states pain is tolerable until next pain med. Safety precautions in place, will continue to monitor.
[2019-01-06 20:16] VITALS: BP 120/50
[2019-01-06] MEDS: SIMVASTATIN 20 MG TABLET PO SCH (20:49)
[2019-01-06] MEDS: DOCUSATE SODIUM 250 MG CAPSULE PO SCH (20:49)
--- NOTE | 2019-01-06 22:08 | NUR ---
Pt. refused PM meds colace and zocor. Pt. had bowel movement during shift formed, soft, brown. Vital signs stable. Dilaudid and Zofran given for pain. Will continue to monitor.
[2019-01-07] MEDS: HYDROMORPHONE 1 MG/1 ML DISP.SYRIN IV PRN ×3 (01:30→09:45)
[2019-01-07] MEDS: ONDANSETRON 4 MG/2 ML VIAL IV PRN (05:59)
[2019-01-07 06:49] VITALS: BP 120/67
--- NOTE | 2019-01-07 06:53 | NUR ---
Pt. slept intermittently throughout night, dozing off occasionally. Educated pt. on importance of sleep and advised pt. to get some rest. Pt. refused medications during shift. Educated pt. on importance of taking medications; however, pt. still refused. Vital signs stable. Pt. stated she had pain in her ribs, groin, and coccyx area. Reassessed for pain and provided pt. with PRN pain medication. Safety measures in place, will continue to monitor.
[2019-01-07] MEDS: PANTOPRAZOLE SODIUM 40 MG TABLET.DR PO SCH (07:00)
--- NOTE | 2019-01-07 07:45 | NUR ---
PATIENT RECEIVED AWAKE, ORIENTED X4. STATING SHE WANTS TO GO HOME TODAY. DENIES SOB. COMPLAINS OF PAIN TO LEFT LEG AND PELVIS BUT DID NOT WANT NORCO PAIN MEDICATION AT THIS TIME. DENIES N/V. LEFT FA HL, FLUSHED AND INTACT. SAFETY AND FALL PRECAUTIONS IN PLACE. BED IN LOW POSITION, LOCKED. CALL LIGHT IN REACH. WILL CONTINUE TO MONITOR.
[2019-01-07 08:19] VITALS: BP 120/67
[2019-01-07] MEDS: CALCIUM CARBONATE 500 MG TABLET PO SCH (08:19)
[2019-01-07] MEDS: NICOTINE 21 MG/24HR PATCH TD SCH (08:19)
[2019-01-07] MEDS: GABAPENTIN 400 MG CAPSULE PO SCH (08:19)
[2019-01-07] MEDS: LISINOPRIL 10 MG TABLET PO SCH (08:19)
--- NOTE | 2019-01-07 12:43 | NUR ---
PATIENT DISCHARGED TO HOME WITH HOME HEALTH. DISCHARGE INSTRUCTION AND RX GIVEN AND WENT OVER WITH PATIENT. BELONGINGS LIST WENT OVER WITH PATIENT. PATIENT LEFT THE UNIT VIA W/C. PATIENT WAS ABLE TO TAKE WALKER WITH HER. PATIENT IN STABLE CONDITION UPON DISCHARGE. VITAL SIGNS STABLE. IV REMOVED. ARM BAND REMOVED. MUNA REMOVED AND PATIENT DRESSED SELF.
== END 2019-01-07 12:45 | disposition home health service (06) | DRG 543 ==
LOC: ER 03:34 → MEDSURG3 04:00
PROVIDERS: ADMIT Registered Nurse; ATTEND Nurse Practitioner Acute Care
DX: M80.052A Age-related osteoporosis with current pathological fracture, left femur, initial encounter for fracture (principal); E27.40 Unspecified adrenocortical insufficiency; M80.00XA Age-related osteoporosis with current pathological fracture, unspecified site, initial encounter for fracture; Z85.820 Personal history of malignant melanoma of skin; F41.9 Anxiety disorder, unspecified; F32.9 Major depressive disorder, single episode, unspecified; Z87.81 Personal history of (healed) traumatic fracture; L21.9 Seborrheic dermatitis, unspecified; Z80.8 Family history of malignant neoplasm of other organs or systems; F17.210 Nicotine dependence, cigarettes, uncomplicated; Z80.0 Family history of malignant neoplasm of digestive organs; Z82.0 Family history of epilepsy and other diseases of the nervous system; I10 Essential (primary) hypertension; E78.5 Hyperlipidemia, unspecified
CPT/HCPCS: 36415; 71101; 83735; 84100; 84443; 85025; 97110; 97116; 97530; A4663; G0378; J1170; J2405; J8499

== ENCOUNTER 2023-09-10 10:40 | Inpatient (IN) | payer MEDICARE, OTHER ==
[~2023-09-10] VITALS: Ht 167.6 cm; Wt 56.8 kg
[~2023-09-10 10:40] MED LIST changes: +ALEN70TA3 PO; -Acetaminophen PO; -CALC-880 PO; +CALC500T89 PO; +DICL100G16 TP; +DICL75TA5 PO; +GABA-536 PO; -Gabapentin PO; +LISI10TA29 PO; -MULT-70 PO; -OMEG500C PO; +TRAM50TA2 PO; +TRIA15CR2 TP
[2023-09-10] MEDS ORDERED: MORPHINE SULFATE 4 MG/1 ML DISP.SYRIN ONE (12:14)
[2023-09-10] MEDS ORDERED: ONDANSETRON 4 MG/2 ML VIAL ONE (12:14)
[2023-09-10] MEDS: IV NORMAL SALINE 500 ML BAG IV ONE (12:27)
[2023-09-10] MEDS: ONDANSETRON 4 MG/2 ML VIAL IV ONE (12:27)
[2023-09-10] MEDS: MORPHINE SULFATE 2 MG/1 ML DISP.SYRIN IV ONE (12:27)
[2023-09-10 12:35] LABS: CALCIUM 9.4 mg/dL (8.5-10.1); CARBON DIOXIDE 30 mmol/L (21-32); CHLORIDE 105 mmol/L (98-107); CREATININE 0.7 mg/dL (0.6-1.3); GLUCOSE 114 mg/dL (74-106); POTASSIUM 3.9 mmol/L (3.5-5.1); SODIUM SERUM 141 mmol/L (136-145); UREA NITROGEN, BLOOD 13 mg/dL (7-18)
[2023-09-10 12:46] LABS: ALANINE AMINOTRANSFERASE 22 U/L (14-59); ALBUMIN 3.7 g/dL (3.4-5.0); ALKALINE PHOSPHATASE 97 U/L (50-136); ASPARTATE AMINOTRANSFERASE 14 U/L (15-37); BILIRUBIN,DIRECT 0.2 mg/dL (0.0-0.2); BILIRUBIN,TOTAL 0.8 mg/dL (0.2-1.0); TOTAL PROTEIN, SERUM 7.5 g/dL (6.4-8.2)
[2023-09-10 12:50] LABS: BASOPHILS % (AUTO) 0.5 % (0.0-2.0); EOSINOPHILS # (AUTO) 0.1 K/uL (0.0-0.7); HEMATOCRIT 41.2 % (31.2-41.9); HEMOGLOBIN 13.7 g/dL (10.9-14.3); LYMPHOCYTES # (AUTO) 1.5 K/uL (0.8-4.8); MEAN CORPUSCULAR HEMOGLOBIN 29.7 uug (24.7-32.8); MEAN CORPUSCULAR HGB CONC 33 g/dL (32.3-35.6); MEAN CORPUSCULAR VOLUME 89.6 fL (75.5-95.3); MONOCYTES # (AUTO) 0.5 K/uL (0.1-1.30); MONOCYTES % (AUTO) 7.7 % (0.0-11.0); NEUTROPHILS # (AUTO) 4.8 K/uL (1.8-8.9); NEUTROPHILS % (AUTO) 68.8 % (38.5-71.5); PLATELET COUNT (AUTO) 309 K/uL (179-408); RED CELL DISTRIBUTION WIDTH 14.2 % (12.3-17.7); WHITE BLOOD COUNT (AUTO) 6.9 K/uL (3.8-11.8)
[2023-09-10 12:54] LABS: DIFFERENTIAL COMMENT 1
[2023-09-10] MEDS ORDERED: GABAPENTIN 400 MG CAPSULE PO SCH (17:00)
[2023-09-10] MEDS ORDERED: ALENDRONATE SODIUM 70 MG TABLET PO SCH (17:00)
[2023-09-10] MEDS ORDERED: MAGNESIUM HYDROXIDE 30 ML LIQUID UDC PO PRN (17:15)
[2023-09-10] MEDS ORDERED: ACETAMINOPHEN 325 MG TABLET PO PRN (17:15)
[2023-09-10] MEDS ORDERED: ONDANSETRON 4 MG/2 ML VIAL IV PRN (17:15)
[2023-09-10] MEDS ORDERED: REMEDY ESSENTIAL ZINC PASTE 113 GM TP PRN (17:15)
[2023-09-10] MEDS: MORPHINE SULFATE 4 MG/1 ML DISP.SYRIN IV PRN (18:16)
[2023-09-10 20:00] VITALS: BP 93/51; TEMP 97.5; O2SAT 98
[2023-09-11] VITALS (9 sets, daily range): BP systolic 90–104; BP diastolic 45–81; TEMP 97–98.6; O2SAT 94–100
[2023-09-11] MEDS: MORPHINE SULFATE 2 MG/1 ML DISP.SYRIN IV PRN (01:09)
[2023-09-11 07:52] LABS: BASOPHILS % (AUTO) 0.6 % (0.0-2.0); EOSINOPHILS # (AUTO) 0.1 K/uL (0.0-0.7); EOSINOPHILS % (AUTO) 2.2 % (0.0-7.0); HEMOGLOBIN 12.1 g/dL (10.9-14.3); LYMPHOCYTES % (AUTO) 31.9 % (20.5-51.5); MEAN CORPUSCULAR HEMOGLOBIN 30.1 uug (24.7-32.8); MEAN CORPUSCULAR HGB CONC 34 g/dL (32.3-35.6); MEAN CORPUSCULAR VOLUME 89.8 fL (75.5-95.3); MONOCYTES # (AUTO) 0.5 K/uL (0.1-1.30); MONOCYTES % (AUTO) 7.7 % (0.0-11.0); NEUTROPHILS # (AUTO) 3.6 K/uL (1.8-8.9); NEUTROPHILS % (AUTO) 57.6 % (38.5-71.5); PLATELET COUNT (AUTO) 279 K/uL (179-408); RED BLOOD CELL COUNT(AUTO) 4.01 MIL/uL (3.63-4.92); RED CELL DISTRIBUTION WIDTH 14.1 % (12.3-17.7); WHITE BLOOD COUNT (AUTO) 6.2 K/uL (3.8-11.8)
[2023-09-11 08:10] LABS: DIFFERENTIAL COMMENT 1
[2023-09-11 08:11] LABS: THYROID STIMULATING HORMONE 3.176 mIU/mL (0.358-3.740)
[2023-09-11 08:21] LABS: CREATININE 0.7 mg/dL (0.6-1.3); POTASSIUM 3.5 mmol/L (3.5-5.1)
[2023-09-11 08:27] LABS: CALCIUM 8.6 mg/dL (8.5-10.1)
[2023-09-11] MEDS ORDERED: LISINOPRIL 10 MG TABLET PO SCH ×2 (09:00)
[2023-09-11] MEDS: CALCIUM CARBONATE 500 MG TABLET PO SCH (09:00)
[2023-09-11] MEDS ORDERED: DICL50TA9 PO (09:23)
[2023-09-11] MEDS ORDERED: MECL-159 PO (09:25)
[2023-09-11 19:28] LABS: *BILIRUBIN,URIN NEGATIVE (NEGATIVE); *BLOOD, URINE NEGATIVE (NEGATIVE); *CLARITY,URINE SLIGHTLY CLOUDY (CLEAR); *COLOR,URINE YELLOW (YELLOW); *KETONES,URINE NEGATIVE (NEGATIVE); *PROTEIN,URINE NEGATIVE (NEGATIVE); *UROBILINOGEN,URINE 0.2 E.U./dl (NORMAL); LEUKOCYTE ESTERASE ,URINE 1+ (NEGATIVE); NITRITE, URINE NEGATIVE (NEGATIVE); PH,URINE 5.5 (5.0-8.0); UGLUCOSE NEGATIVE (NEGATIVE)
[2023-09-11 19:54] LABS: BACTERIA,URINE MODERATE /HPF (NONE SEEN); CALCIUM OXALATE CRYSTALS,UR FEW /HPF (NONE SEEN); RBC,URINE 0-3 /HPF (0-3); SQUAMOUS EPITHELIAL CELL,UR MANY /HPF (NONE SEEN)
[2023-09-11] MEDS: levETIRAcetam 500 MG TABLET PO SCH (20:12)
[2023-09-11] MEDS: ZOLPIDEM 5 MG TABLET PO PRN (21:26)
[2023-09-12] VITALS (7 sets, daily range): BP systolic 88–138; BP diastolic 32–58; TEMP 97.8–99; O2SAT 95–99
[2023-09-12] MEDS: CETIRIZINE HCL 10 MG TABLET PO PRN (04:00)
[2023-09-12 10:09] LABS: CORTISOL AM 21.4 ug/dL (6.2-19.4)
[2023-09-12] MEDS: CEFTRIAXONE 1 G in IV DEXTROSE 5% 50 ML IV SCH (11:33)
[2023-09-12] MEDS: DICLOFENAC 75 MG TABLET.DR PO SCH (11:33)
[2023-09-12] MEDS: ALPRAZOLAM 0.5 MG TABLET PO PRN (11:35)
[2023-09-13 02:13] VITALS: BP 122/61; O2SAT 96
[2023-09-13 04:00] VITALS: BP 129/67; TEMP 97.9; O2SAT 97
[2023-09-13 06:10] VITALS: BP 124/63; O2SAT 97
[2023-09-13 08:00] VITALS: BP 118/59; TEMP 97.7; O2SAT 95
[2023-09-13] MEDS ORDERED: CEPH500T PO (09:35)
[2023-09-13] MEDS ORDERED: HYDR-3972 PO (09:35)
[2023-09-13] MEDS ORDERED: TEMA15CA5 PO (09:35)
[2023-09-13 11:24] VITALS: BP 132/68; TEMP 98.1; O2SAT 97
[2023-09-13 14:06] LABS: ACTH, PLASMA 19.9 pg/mL (7.2-63.3)
[2023-09-15 18:08] LABS: ALDOSTERONE <1.0 ng/dL (.)
== END 2023-09-13 11:45 | disposition home or self-care (01) | DRG 690 ==
LOC: ER 10:40 → TELE3 14:39 → MEDSURG3 09-12 13:00
PROVIDERS: ADMIT Nurse Practitioner Acute Care; ATTEND Nurse Practitioner Acute Care
DX: N39.0 Urinary tract infection, site not specified (principal); E27.40 Unspecified adrenocortical insufficiency; E86.0 Dehydration; G89.4 Chronic pain syndrome; F17.210 Nicotine dependence, cigarettes, uncomplicated; G43.109 Migraine with aura, not intractable, without status migrainosus; B96.89 Other specified bacterial agents as the cause of diseases classified elsewhere; Z87.820 Personal history of traumatic brain injury; Z87.81 Personal history of (healed) traumatic fracture; I10 Essential (primary) hypertension; M81.0 Age-related osteoporosis without current pathological fracture; E78.5 Hyperlipidemia, unspecified; M47.812 Spondylosis without myelopathy or radiculopathy, cervical region; M99.51 Intervertebral disc stenosis of neural canal of cervical region; F41.9 Anxiety disorder, unspecified; F32.A Depression, unspecified; Z79.83 Long term (current) use of bisphosphonates; Z85.820 Personal history of malignant melanoma of skin; L21.9 Seborrheic dermatitis, unspecified
CPT/HCPCS: 36415; 70450; 70551; 71045; 72125; 72131; 72170; 72192; 82024; 82088; 82533; 83735; 84100; 84443; 84480; 84484; 85025; 93005; 93307; 93880; A4663; G0378; J0696; J2270; J2405; J7040

== ENCOUNTER 2023-09-17 11:08 | Emergency (ER) | payer MEDICARE, OTHER ==
[~2023-09-17] VITALS: Ht 167.6 cm; Wt 54.9 kg
[~2023-09-17 11:08] MED LIST changes: +CEPH500T PO; +DICL50TA9 PO; +HYDR-3972 PO; +MECL-159 PO; +TEMA15CA5 PO
[2023-09-17 12:35] VITALS: BP 129/81; TEMP 98.3; O2SAT 97
== END 2023-09-17 12:35 | disposition home or self-care (01) ==
LOC: ER 11:08
DX: G89.29 Other chronic pain (principal); R55 Syncope and collapse; E78.5 Hyperlipidemia, unspecified; F41.9 Anxiety disorder, unspecified; F32.A Depression, unspecified; F17.200 Nicotine dependence, unspecified, uncomplicated; Z79.899 Other long term (current) drug therapy; Z98.890 Other specified postprocedural states; Z60.2 Problems related to living alone; Z88.1 Allergy status to other antibiotic agents
CPT/HCPCS: A4606; A4663

== ENCOUNTER 2023-10-06 17:43 | Inpatient (IN) | payer MEDICARE, OTHER ==
[~2023-10-06] VITALS: Ht 167.6 cm; Wt 54.9 kg
[~2023-10-06 17:43] MED LIST changes: -ALEN70TA3 PO; -CALC500T89 PO; -CEPH500T PO; -DICL75TA5 PO; -GABA-536 PO; -HYDR-3972 PO; -LISI10TA29 PO; -TRAM50TA2 PO; -TRIA15CR2 TP
[2023-10-06] MEDS ORDERED: ONDANSETRON 4 MG/2 ML VIAL ONE ×2 (18:30→18:48)
[2023-10-06] MEDS: IV NORMAL SALINE 500 ML BAG IV ONE (18:41)
[2023-10-06] MEDS: ONDANSETRON 4 MG/2 ML VIAL IV ONE ×2 (18:41→18:49)
[2023-10-06 18:42] LABS: BASOPHILS % (AUTO) 0.7 % (0.0-2.0); EOSINOPHILS # (AUTO) 0.2 K/uL (0.0-0.7); EOSINOPHILS % (AUTO) 3.3 % (0.0-7.0); HEMATOCRIT 37.1 % (31.2-41.9); HEMOGLOBIN 12.1 g/dL (10.9-14.3); LYMPHOCYTES # (AUTO) 2.2 K/uL (0.8-4.8); LYMPHOCYTES % (AUTO) 42.5 % (20.5-51.5); MEAN CORPUSCULAR HEMOGLOBIN 29.3 uug (24.7-32.8); MEAN CORPUSCULAR HGB CONC 33 g/dL (32.3-35.6); MEAN CORPUSCULAR VOLUME 89.9 fL (75.5-95.3); MONOCYTES # (AUTO) 0.5 K/uL (0.1-1.30); MONOCYTES % (AUTO) 9.5 % (0.0-11.0); NEUTROPHILS # (AUTO) 2.3 K/uL (1.8-8.9); PLATELET COUNT (AUTO) 337 K/uL (179-408); RED BLOOD CELL COUNT(AUTO) 4.12 MIL/uL (3.63-4.92); RED CELL DISTRIBUTION WIDTH 14.8 % (12.3-17.7); WHITE BLOOD COUNT (AUTO) 5.1 K/uL (3.8-11.8)
[2023-10-06 18:48] LABS: DIFFERENTIAL COMMENT 1
[2023-10-06] MEDS ORDERED: HYDROMORPHONE 1 MG/1 ML DISP.SYRIN ONE ×2 (18:48→20:49)
[2023-10-06] MEDS: HYDROMORPHONE 1 MG/1 ML DISP.SYRIN IV ONE ×2 (18:49→20:55)
[2023-10-06 18:57] LABS: CALCIUM 9.1 mg/dL (8.5-10.1); CARBON DIOXIDE 28 mmol/L (21-32); CHLORIDE 108 mmol/L (98-107); CREATININE 0.6 mg/dL (0.6-1.3); GLUCOSE 112 mg/dL (74-106); POTASSIUM 3.3 mmol/L (3.5-5.1); SODIUM SERUM 146 mmol/L (136-145); UREA NITROGEN, BLOOD 13 mg/dL (7-18)
[2023-10-06 19:06] LABS: ALANINE AMINOTRANSFERASE 18 U/L (14-59); ALBUMIN 3.4 g/dL (3.4-5.0); ALKALINE PHOSPHATASE 85 U/L (50-136); ASPARTATE AMINOTRANSFERASE 9 U/L (15-37); BILIRUBIN,DIRECT 0.2 mg/dL (0.0-0.2); BILIRUBIN,TOTAL 0.6 mg/dL (0.2-1.0); TOTAL PROTEIN, SERUM 6.7 g/dL (6.4-8.2)
[2023-10-06] MEDS: IV NORMAL SALINE 1000 ML BAG IV ONE (19:39)
[2023-10-06] MEDS ORDERED: POTASSIUM CHLORIDE 20 MEQ TAB.PRT.SR ONE (20:01)
[2023-10-06] MEDS: POTASSIUM CHLORIDE 20 MEQ TAB.PRT.SR PO ONE (20:04)
[2023-10-06] MEDS ORDERED: ONDANSETRON 4 MG/2 ML VIAL IV PRN (22:00)
[2023-10-06] MEDS ORDERED: TEMAZEPAM 15 MG CAPSULE PO PRN (22:00)
[2023-10-06] MEDS ORDERED: ACETAMINOPHEN 325 MG TABLET PO PRN (22:00)
[2023-10-07 00:29] VITALS: BP 131/67; TEMP 97.4; O2SAT 95
[2023-10-07] MEDS: HYDROMORPHONE 1 MG/1 ML DISP.SYRIN IV PRN (00:29)
[2023-10-07] MEDS: PANTOPRAZOLE SODIUM 40 MG TABLET.DR PO SCH (06:09)
[2023-10-07 07:02] LABS: BASOPHILS % (AUTO) 0.4 % (0.0-2.0); EOSINOPHILS # (AUTO) 0.2 K/uL (0.0-0.7); EOSINOPHILS % (AUTO) 3.5 % (0.0-7.0); HEMATOCRIT 32.1 % (31.2-41.9); HEMOGLOBIN 10.9 g/dL (10.9-14.3); LYMPHOCYTES # (AUTO) 2.1 K/uL (0.8-4.8); LYMPHOCYTES % (AUTO) 34.2 % (20.5-51.5); MEAN CORPUSCULAR HEMOGLOBIN 30.3 uug (24.7-32.8); MEAN CORPUSCULAR HGB CONC 34 g/dL (32.3-35.6); MEAN CORPUSCULAR VOLUME 89.7 fL (75.5-95.3); MONOCYTES # (AUTO) 0.6 K/uL (0.1-1.30); NEUTROPHILS # (AUTO) 3.2 K/uL (1.8-8.9); NEUTROPHILS % (AUTO) 52.9 % (38.5-71.5); PLATELET COUNT (AUTO) 307 K/uL (179-408); RED BLOOD CELL COUNT(AUTO) 3.58 MIL/uL (3.63-4.92); RED CELL DISTRIBUTION WIDTH 14.9 % (12.3-17.7); WHITE BLOOD COUNT (AUTO) 6.1 K/uL (3.8-11.8)
[2023-10-07 07:21] LABS: ALBUMIN 2.8 g/dL (3.4-5.0); BILIRUBIN,TOTAL 0.4 mg/dL (0.2-1.0); CALCIUM 8.2 mg/dL (8.5-10.1); CREATININE 0.7 mg/dL (0.6-1.3); MAGNESIUM 1.9 mg/dL (1.8-2.4); PHOSPHOROUS 4.3 mg/dL (2.5-4.9); POTASSIUM 3.3 mmol/L (3.5-5.1); TOTAL PROTEIN, SERUM 5.6 g/dL (6.4-8.2)
[2023-10-07 07:45] LABS: DIFFERENTIAL COMMENT 1
[2023-10-07 08:00] VITALS: BP 107/56; TEMP 98; O2SAT 95
[2023-10-07] MEDS: DICLOFENAC 50 MG TABLET.DR PO SCH (08:42)
[2023-10-07] MEDS ORDERED: DICLOFENAC SODIUM PO SCH (09:00)
[2023-10-07] MEDS: POTASSIUM CHLORIDE 20 MEQ TAB.PRT.SR PO ONE (11:39)
[2023-10-07 11:40] VITALS: BP 129/60; TEMP 98.1; O2SAT 95
[2023-10-07 16:02] VITALS: BP 126/63; TEMP 97.9; O2SAT 96
[2023-10-07] MEDS ORDERED: DOCUSATE SODIUM 100 MG CAPSULE PO SCH (21:00)
[2023-10-07] MEDS ORDERED: DOCUSATE SODIUM 250 MG CAPSULE PO SCH (21:00)
[2023-10-20] MEDS ORDERED: DICY10CA13 PO (22:30)
== END 2023-10-07 17:10 | disposition home or self-care (01) | DRG 312 ==
LOC: ER 17:46 → MEDSURG3 21:00 → UNDOADMIN 21:00 → TELE3 21:01
PROVIDERS: ADMIT Internal Medicine; ATTEND Internal Medicine
DX: R55 Syncope and collapse (principal); E87.6 Hypokalemia; J43.9 Emphysema, unspecified; Z87.820 Personal history of traumatic brain injury; Z87.81 Personal history of (healed) traumatic fracture; L21.9 Seborrheic dermatitis, unspecified; Z85.820 Personal history of malignant melanoma of skin; G89.4 Chronic pain syndrome; F17.210 Nicotine dependence, cigarettes, uncomplicated; F41.9 Anxiety disorder, unspecified; F32.A Depression, unspecified; G47.00 Insomnia, unspecified; M81.0 Age-related osteoporosis without current pathological fracture; E11.40 Type 2 diabetes mellitus with diabetic neuropathy, unspecified; E78.5 Hyperlipidemia, unspecified; Z79.899 Other long term (current) drug therapy; Z88.8 Allergy status to other drugs, medicaments and biological substances
CPT/HCPCS: 36415; 70450; 71045; 72125; 72170; 72192; 73551; 73590; 83735; 84100; 84484; 85025; 93005; A4606; A4663; G0378; J1170; J2405; J7040

== ENCOUNTER 2023-10-28 13:20 | Emergency (ER) | payer MEDICARE, OTHER ==
[~2023-10-28] VITALS: Ht 167.6 cm; Wt 54.9 kg
[~2023-10-28 13:20] MED LIST changes: +DICY10CA13 PO
[2023-10-28 13:24] VITALS: O2SAT 96
[2023-10-28] MEDS ORDERED: DICL50TA9 PO (13:51)
== END 2023-10-28 14:01 | disposition home or self-care (01) ==
LOC: ER 13:20
DX: M54.2 Cervicalgia (principal); E78.5 Hyperlipidemia, unspecified; J43.9 Emphysema, unspecified; E11.9 Type 2 diabetes mellitus without complications; F41.9 Anxiety disorder, unspecified; F32.A Depression, unspecified; F17.200 Nicotine dependence, unspecified, uncomplicated; Z98.890 Other specified postprocedural states; Z79.899 Other long term (current) drug therapy; Z60.2 Problems related to living alone; Z88.1 Allergy status to other antibiotic agents
CPT/HCPCS: A4606; A4663

== ENCOUNTER 2023-11-04 19:17 | Emergency (ER) | payer MEDICARE, OTHER ==
[~2023-11-04] VITALS: Ht 167.6 cm; Wt 54.9 kg
[2023-11-04] MEDS ORDERED: ONDANSETRON 4 MG/2 ML VIAL ONE (21:06)
[2023-11-04] MEDS ORDERED: MORPHINE SULFATE 2 MG/1 ML DISP.SYRIN ONE (21:07)
[2023-11-04] MEDS: ONDANSETRON 4 MG/2 ML VIAL IV ONE (21:20)
[2023-11-04] MEDS: IV NORMAL SALINE 1000 ML BAG IV ONE (21:22)
[2023-11-04] MEDS: MORPHINE SULFATE 4 MG/1 ML DISP.SYRIN IV ONE (21:22)
[2023-11-04] MEDS ORDERED: OXYC-133 PO (22:31)
[2023-11-04 23:14] VITALS: BP 100/66; TEMP 98; O2SAT 98
== END 2023-11-04 23:14 | disposition home or self-care (01) ==
LOC: ER 19:19
DX: S09.8XXA Other specified injuries of head, initial encounter (principal); R51.9 Headache, unspecified; L21.9 Seborrheic dermatitis, unspecified; F17.210 Nicotine dependence, cigarettes, uncomplicated; Z98.890 Other specified postprocedural states; Z79.899 Other long term (current) drug therapy; Z88.1 Allergy status to other antibiotic agents; W18.39XA Other fall on same level, initial encounter; Y93.89 Activity, other specified; Y92.89 Other specified places as the place of occurrence of the external cause; Y99.8 Other external cause status
CPT/HCPCS: 99285; 96374; 70450; 96361; 96375; 99406; J2405; J2270; J7040

== ENCOUNTER 2023-11-11 15:23 | Emergency (ER) | payer MEDICARE, OTHER ==
[~2023-11-11] VITALS: Ht 167.6 cm; Wt 54.9 kg
[~2023-11-11 15:23] MED LIST changes: +OXYC-133 PO
[2023-11-11 16:06] VITALS: BP 111/70; O2SAT 97
== END 2023-11-11 16:06 | disposition home or self-care (01) ==
LOC: ER 15:23
DX: G89.29 Other chronic pain (principal); R51.9 Headache, unspecified; E87.6 Hypokalemia; F17.200 Nicotine dependence, unspecified, uncomplicated; Z98.890 Other specified postprocedural states; Z79.899 Other long term (current) drug therapy; Z60.2 Problems related to living alone; Z88.1 Allergy status to other antibiotic agents
CPT/HCPCS: A4606; A4663

== ENCOUNTER 2023-12-10 16:19 | Inpatient (IN) | payer MEDICARE, OTHER ==
[~2023-12-10] VITALS: Ht 167.6 cm; Wt 52.6 kg
[2023-12-10] MEDS ORDERED: ONDANSETRON 4 MG/2 ML VIAL IV PRN (18:00)
[2023-12-10] MEDS ORDERED: MAGNESIUM HYDROXIDE 30 ML LIQUID UDC PO PRN (18:00)
[2023-12-10] MEDS ORDERED: ACETAMINOPHEN 325 MG TABLET PO PRN (18:00)
[2023-12-10] MEDS ORDERED: REMEDY ESSENTIAL ZINC PASTE 113 GM TP PRN (18:00)
[2023-12-10 18:19] LABS: BASOPHILS # (AUTO) 0.3 K/UL (0.0-0.2); BASOPHILS % (AUTO) 4.2 % (0.0-2.0); EOSINOPHILS # (AUTO) 0.1 K/uL (0.0-0.7); EOSINOPHILS % (AUTO) 1.4 % (0.0-7.0); HEMATOCRIT 30.5 % (31.2-41.9); HEMOGLOBIN 10.1 g/dL (10.9-14.3); LYMPHOCYTES # (AUTO) 1.3 K/uL (0.8-4.8); LYMPHOCYTES % (AUTO) 17.1 % (20.5-51.5); MEAN CORPUSCULAR HEMOGLOBIN 29.3 uug (24.7-32.8); MEAN CORPUSCULAR HGB CONC 33 g/dL (32.3-35.6); MEAN CORPUSCULAR VOLUME 88.6 fL (75.5-95.3); MONOCYTES # (AUTO) 0.5 K/uL (0.1-1.30); MONOCYTES % (AUTO) 6.7 % (0.0-11.0); NEUTROPHILS # (AUTO) 5.2 K/uL (1.8-8.9); NEUTROPHILS % (AUTO) 70.6 % (38.5-71.5); PLATELET COUNT (AUTO) 507 K/uL (179-408); RED BLOOD CELL COUNT(AUTO) 3.44 MIL/uL (3.63-4.92); RED CELL DISTRIBUTION WIDTH 14.9 % (12.3-17.7); WHITE BLOOD COUNT (AUTO) 7.4 K/uL (3.8-11.8)
[2023-12-10 18:23] LABS: CALCIUM 9.1 mg/dL (8.5-10.1); CREATININE 0.7 mg/dL (0.6-1.3)
[2023-12-10 18:28] LABS: ALBUMIN 3.3 g/dL (3.4-5.0); BILIRUBIN,TOTAL 0.7 mg/dL (0.2-1.0); TOTAL PROTEIN, SERUM 6.9 g/dL (6.4-8.2)
[2023-12-10 18:33] LABS: DIFFERENTIAL COMMENT 1
[2023-12-10] MEDS: HYDROMORPHONE 1 MG/1 ML DISP.SYRIN IV PRN (21:12)
[2023-12-11] MEDS ORDERED: HYDROMORPHONE 1 MG/1 ML DISP.SYRIN IM ONE
[2023-12-11] MEDS: HYDROMORPHONE 1 MG/1 ML DISP.SYRIN IV ONE (00:18)
[2023-12-11 00:58] VITALS: BP 102/45; TEMP 98.1; O2SAT 97
[2023-12-11 06:21] VITALS: BP 105/63; TEMP 98.3; O2SAT 95
[2023-12-11 07:32] LABS: BASOPHILS # (AUTO) 0.1 K/UL (0.0-0.2); EOSINOPHILS # (AUTO) 0.2 K/uL (0.0-0.7); EOSINOPHILS % (AUTO) 3.2 % (0.0-7.0); HEMATOCRIT 27.8 % (31.2-41.9); HEMOGLOBIN 9.3 g/dL (10.9-14.3); LYMPHOCYTES # (AUTO) 2.1 K/uL (0.8-4.8); LYMPHOCYTES % (AUTO) 32.2 % (20.5-51.5); MEAN CORPUSCULAR HEMOGLOBIN 29.5 uug (24.7-32.8); MEAN CORPUSCULAR HGB CONC 34 g/dL (32.3-35.6); MEAN CORPUSCULAR VOLUME 88.1 fL (75.5-95.3); MONOCYTES # (AUTO) 0.6 K/uL (0.1-1.30); MONOCYTES % (AUTO) 8.9 % (0.0-11.0); NEUTROPHILS # (AUTO) 3.5 K/uL (1.8-8.9); NEUTROPHILS % (AUTO) 54.7 % (38.5-71.5); PLATELET COUNT (AUTO) 463 K/uL (179-408); RED BLOOD CELL COUNT(AUTO) 3.16 MIL/uL (3.63-4.92); RED CELL DISTRIBUTION WIDTH 14.8 % (12.3-17.7); WHITE BLOOD COUNT (AUTO) 6.4 K/uL (3.8-11.8)
[2023-12-11 07:39] LABS: CALCIUM 8.6 mg/dL (8.5-10.1); CREATININE 0.6 mg/dL (0.6-1.3); MAGNESIUM 2.2 mg/dL (1.8-2.4); PHOSPHOROUS 3.8 mg/dL (2.5-4.9); POTASSIUM 3.7 mmol/L (3.5-5.1)
[2023-12-11 08:06] LABS: DIFFERENTIAL COMMENT 1
[2023-12-11] MEDS: HYDROCODONE/APAP 10-325 MG TABLET PO PRN (08:09)
[2023-12-11] MEDS: HYDROMORPHONE 1 MG/1 ML DISP.SYRIN IV PRN (10:05)
[2023-12-11] MEDS: APIXABAN 5 MG TABLET PO SCH (10:07)
[2023-12-11 12:00] VITALS: BP 111/64; TEMP 98.3; O2SAT 97
[2023-12-11] MEDS: GABAPENTIN 300 MG CAPSULE PO SCH (13:06)
[2023-12-11] MEDS: ENSURE ENLIVE (VAN) 240 ML LIQUID PO SCH (14:19)
[2023-12-11 16:51] VITALS: BP 134/67; TEMP 98.2; O2SAT 99
[2023-12-11 20:00] VITALS: BP 101/51; TEMP 97.8; O2SAT 97
[2023-12-12 06:00] VITALS: BP 110/59; TEMP 97.9; O2SAT 96
[2023-12-12 07:34] LABS: BASOPHILS # (AUTO) 0.1 K/UL (0.0-0.2); BASOPHILS % (AUTO) 0.9 % (0.0-2.0); EOSINOPHILS # (AUTO) 0.3 K/uL (0.0-0.7); EOSINOPHILS % (AUTO) 4.8 % (0.0-7.0); HEMATOCRIT 29.2 % (31.2-41.9); HEMOGLOBIN 9.6 g/dL (10.9-14.3); LYMPHOCYTES # (AUTO) 1.5 K/uL (0.8-4.8); LYMPHOCYTES % (AUTO) 24.5 % (20.5-51.5); MEAN CORPUSCULAR HEMOGLOBIN 29.5 uug (24.7-32.8); MEAN CORPUSCULAR HGB CONC 33 g/dL (32.3-35.6); MEAN CORPUSCULAR VOLUME 89.7 fL (75.5-95.3); MONOCYTES # (AUTO) 0.5 K/uL (0.1-1.30); MONOCYTES % (AUTO) 7.9 % (0.0-11.0); NEUTROPHILS # (AUTO) 3.7 K/uL (1.8-8.9); NEUTROPHILS % (AUTO) 61.9 % (38.5-71.5); PLATELET COUNT (AUTO) 438 K/uL (179-408); RED BLOOD CELL COUNT(AUTO) 3.26 MIL/uL (3.63-4.92); RED CELL DISTRIBUTION WIDTH 14.5 % (12.3-17.7)
[2023-12-12 07:44] LABS: DIFFERENTIAL COMMENT 1
[2023-12-12 07:48] LABS: CALCIUM 8.6 mg/dL (8.5-10.1); CREATININE 0.7 mg/dL (0.6-1.3); POTASSIUM 3.5 mmol/L (3.5-5.1)
[2023-12-12 11:09] VITALS: BP 90/48; TEMP 98.1; O2SAT 100
[2023-12-12 15:21] VITALS: BP 128/76; TEMP 98.2; O2SAT 98
[2023-12-12 23:47] VITALS: BP 100/66; TEMP 97.9; O2SAT 97
[2023-12-13 06:00] VITALS: BP 108/64; TEMP 98.1; O2SAT 94
[2023-12-13 08:15] LABS: BASOPHILS # (AUTO) 0.1 K/UL (0.0-0.2); BASOPHILS % (AUTO) 0.8 % (0.0-2.0); EOSINOPHILS # (AUTO) 0.6 K/uL (0.0-0.7); EOSINOPHILS % (AUTO) 6.9 % (0.0-7.0); HEMATOCRIT 29.6 % (31.2-41.9); HEMOGLOBIN 10.1 g/dL (10.9-14.3); LYMPHOCYTES # (AUTO) 1.9 K/uL (0.8-4.8); LYMPHOCYTES % (AUTO) 23.8 % (20.5-51.5); MEAN CORPUSCULAR HEMOGLOBIN 30.2 uug (24.7-32.8); MEAN CORPUSCULAR HGB CONC 34 g/dL (32.3-35.6); MONOCYTES # (AUTO) 0.6 K/uL (0.1-1.30); MONOCYTES % (AUTO) 7.6 % (0.0-11.0); NEUTROPHILS # (AUTO) 4.9 K/uL (1.8-8.9); NEUTROPHILS % (AUTO) 60.9 % (38.5-71.5); PLATELET COUNT (AUTO) 494 K/uL (179-408); RED BLOOD CELL COUNT(AUTO) 3.33 MIL/uL (3.63-4.92); RED CELL DISTRIBUTION WIDTH 14.8 % (12.3-17.7); WHITE BLOOD COUNT (AUTO) 8.1 K/uL (3.8-11.8)
[2023-12-13 08:26] LABS: DIFFERENTIAL COMMENT 1
[2023-12-13 08:31] LABS: CALCIUM 8.5 mg/dL (8.5-10.1); CREATININE 0.7 mg/dL (0.6-1.3); POTASSIUM 3.5 mmol/L (3.5-5.1)
[2023-12-13] MEDS ORDERED: APIX5TAB4 PO (10:05)
[2023-12-13] MEDS ORDERED: MECL-159 PO (10:06)
[2023-12-13] MEDS ORDERED: GABA300C PO (16:57)
[2023-12-13] MEDS ORDERED: HYDR-3980 PO (16:57)
[2023-12-13] MEDS ORDERED: APIX5TAB PO (16:57)
== END 2023-12-13 18:30 | disposition home health service (06) | DRG 299 ==
LOC: ER 16:23 → MEDSURG3 19:37
PROVIDERS: ADMIT Nurse Practitioner Acute Care; ATTEND Nurse Practitioner Acute Care
DX: I74.3 Embolism and thrombosis of arteries of the lower extremities (principal); E43 Unspecified severe protein-calorie malnutrition; Z68.1 Body mass index [BMI] 19.9 or less, adult; R64 Cachexia; E27.40 Unspecified adrenocortical insufficiency; R53.1 Weakness; Z91.148 Patient's other noncompliance with medication regimen for other reason; G89.4 Chronic pain syndrome; M81.0 Age-related osteoporosis without current pathological fracture; R25.2 Cramp and spasm; R26.89 Other abnormalities of gait and mobility; M47.9 Spondylosis, unspecified; Z87.820 Personal history of traumatic brain injury; F17.211 Nicotine dependence, cigarettes, in remission
CPT/HCPCS: 36415; 73600; 83735; 84100; 85025; A4606; A4663; G0378; J1170

== ENCOUNTER 2023-12-16 12:33 | Emergency (ER) | payer MEDICARE, OTHER ==
[~2023-12-16] VITALS: Ht 167.6 cm; Wt 52.6 kg
[~2023-12-16 12:33] MED LIST changes: +APIX5TAB PO; +APIX5TAB4 PO; -DICL100G16 TP; -DICL50TA9 PO; -DICY10CA13 PO; +GABA300C PO; -OXYC-133 PO; -TEMA15CA5 PO
[2023-12-16] MEDS ORDERED: KETOROLAC TROMETHAMINE 15 MG INJ ONE (13:14)
[2023-12-16] MEDS: IV NORMAL SALINE 1000 ML BAG IV ONE (13:24)
[2023-12-16] MEDS: KETOROLAC TROMETHAMINE 15 MG INJ IVP ONE (13:24)
[2023-12-16] MEDS ORDERED: HYDR-4209 PO (14:05)
[2023-12-16 14:26] VITALS: BP 111/70; O2SAT 98
== END 2023-12-16 14:27 | disposition home or self-care (01) ==
LOC: ER 12:33
DX: M79.605 Pain in left leg (principal); F17.200 Nicotine dependence, unspecified, uncomplicated; Z98.890 Other specified postprocedural states; Z79.899 Other long term (current) drug therapy; Z60.2 Problems related to living alone; Z88.1 Allergy status to other antibiotic agents
CPT/HCPCS: 99284; 96374; 96361; J1885; J7040; A4606; A4663

== ENCOUNTER 2023-12-18 13:26 | Emergency (ER) | payer MEDICARE, OTHER ==
[~2023-12-18] VITALS: Ht 167.6 cm; Wt 52.2 kg
[~2023-12-18 13:26] MED LIST changes: +HYDR-4209 PO
[2023-12-18 13:30] VITALS: O2SAT 98
[2023-12-18] MEDS ORDERED: TRAM50TA2 PO (13:55)
[2023-12-18] MEDS ORDERED: ONDA4TAB5 PO (13:55)
== END 2023-12-18 14:08 | disposition home or self-care (01) ==
LOC: ER 13:26
DX: G89.29 Other chronic pain (principal); R10.2 Pelvic and perineal pain; E78.5 Hyperlipidemia, unspecified; F17.210 Nicotine dependence, cigarettes, uncomplicated; Z88.8 Allergy status to other drugs, medicaments and biological substances; Z79.899 Other long term (current) drug therapy
CPT/HCPCS: A4606; A4663

== ENCOUNTER 2023-12-22 12:21 | Emergency (ER) | payer MEDICARE, OTHER ==
[~2023-12-22] VITALS: Ht 167.6 cm; Wt 52.2 kg
[~2023-12-22 12:21] MED LIST changes: +ONDA4TAB5 PO; +TRAM50TA2 PO
[2023-12-22 13:12] LABS: CARBON DIOXIDE 31 mmol/L (21-32); CHLORIDE 106 mmol/L (98-107); CREATININE 0.7 mg/dL (0.6-1.3); GLUCOSE 101 mg/dL (74-106); POTASSIUM 3.5 mmol/L (3.5-5.1); SODIUM SERUM 144 mmol/L (136-145); UREA NITROGEN, BLOOD 18 mg/dL (7-18)
[2023-12-22 13:16] LABS: BASOPHILS # (AUTO) 0.1 K/UL (0.0-0.2); BASOPHILS % (AUTO) 0.9 % (0.0-2.0); EOSINOPHILS # (AUTO) 0.1 K/uL (0.0-0.7); EOSINOPHILS % (AUTO) 1.8 % (0.0-7.0); HEMATOCRIT 29.2 % (31.2-41.9); HEMOGLOBIN 9.5 g/dL (10.9-14.3); LYMPHOCYTES # (AUTO) 2.4 K/uL (0.8-4.8); LYMPHOCYTES % (AUTO) 33.3 % (20.5-51.5); MEAN CORPUSCULAR HEMOGLOBIN 29.3 uug (24.7-32.8); MEAN CORPUSCULAR HGB CONC 33 g/dL (32.3-35.6); MEAN CORPUSCULAR VOLUME 89.8 fL (75.5-95.3); MONOCYTES # (AUTO) 0.9 K/uL (0.1-1.30); MONOCYTES % (AUTO) 12.6 % (0.0-11.0); NEUTROPHILS # (AUTO) 3.6 K/uL (1.8-8.9); NEUTROPHILS % (AUTO) 51.4 % (38.5-71.5); PLATELET COUNT (AUTO) 376 K/uL (179-408); RED BLOOD CELL COUNT(AUTO) 3.26 MIL/uL (3.63-4.92); RED CELL DISTRIBUTION WIDTH 14.9 % (12.3-17.7); WHITE BLOOD COUNT (AUTO) 7.1 K/uL (3.8-11.8)
[2023-12-22 13:17] LABS: ALANINE AMINOTRANSFERASE 18 U/L (14-59); ALBUMIN 3.3 g/dL (3.4-5.0); ALKALINE PHOSPHATASE 69 U/L (50-136); ASPARTATE AMINOTRANSFERASE < 5 U/L (15-37); BILIRUBIN,TOTAL 0.5 mg/dL (0.2-1.0); DIFFERENTIAL COMMENT 1; TOTAL PROTEIN, SERUM 6.5 g/dL (6.4-8.2)
[2023-12-22] MEDS ORDERED: HYDROCODONE/APAP 5-325MG TABLET ONE (13:51)
[2023-12-22] MEDS: HYDROCODONE/APAP 5-325MG TABLET PO ONE (14:12)
[2023-12-22 14:29] VITALS: BP 132/75; TEMP 98.2; O2SAT 98
== END 2023-12-22 14:33 | disposition home or self-care (01) ==
LOC: ER 12:21
DX: G89.29 Other chronic pain (principal); M79.605 Pain in left leg; E78.5 Hyperlipidemia, unspecified; F17.200 Nicotine dependence, unspecified, uncomplicated; Z98.890 Other specified postprocedural states; Z79.899 Other long term (current) drug therapy; Z60.2 Problems related to living alone; Z88.1 Allergy status to other antibiotic agents
CPT/HCPCS: 36415; 83605; 85025; A4606; A4663

== ENCOUNTER 2024-01-01 10:39 | Inpatient (IN) | payer MEDICARE, OTHER ==
[~2024-01-01] VITALS: Ht 167.6 cm; Wt 50.8 kg
[2024-01-01] MEDS ORDERED: KETOROLAC TROMETHAMINE 30 MG INJ ONE (11:42)
[2024-01-01] MEDS: IV NORMAL SALINE 1000 ML BAG IV ONE (11:43)
[2024-01-01] MEDS: KETOROLAC TROMETHAMINE 30 MG INJ IVP ONE (11:44)
[2024-01-01 12:55] LABS: BASOPHILS % (AUTO) 0.8 % (0.0-2.0); DIFFERENTIAL COMMENT 1; EOSINOPHILS # (AUTO) 0.1 K/uL (0.0-0.7); EOSINOPHILS % (AUTO) 1.8 % (0.0-7.0); HEMATOCRIT 31.6 % (31.2-41.9); HEMOGLOBIN 10.1 g/dL (10.9-14.3); LYMPHOCYTES # (AUTO) 1.1 K/uL (0.8-4.8); LYMPHOCYTES % (AUTO) 20.9 % (20.5-51.5); MEAN CORPUSCULAR HEMOGLOBIN 28.1 uug (24.7-32.8); MEAN CORPUSCULAR HGB CONC 32 g/dL (32.3-35.6); MEAN CORPUSCULAR VOLUME 87.6 fL (75.5-95.3); MONOCYTES # (AUTO) 0.6 K/uL (0.1-1.30); MONOCYTES % (AUTO) 11.2 % (0.0-11.0); NEUTROPHILS # (AUTO) 3.4 K/uL (1.8-8.9); NEUTROPHILS % (AUTO) 65.3 % (38.5-71.5); PLATELET COUNT (AUTO) 316 K/uL (179-408); RED BLOOD CELL COUNT(AUTO) 3.61 MIL/uL (3.63-4.92); RED CELL DISTRIBUTION WIDTH 14.1 % (12.3-17.7); WHITE BLOOD COUNT (AUTO) 5.2 K/uL (3.8-11.8)
[2024-01-01] MEDS ORDERED: GABAPENTIN 300 MG CAPSULE ONE (12:59)
[2024-01-01] MEDS: MECLIZINE HCL 25 MG TABLET PO PRN (12:59)
[2024-01-01] MEDS ORDERED: MECLIZINE HCL 25 MG TABLET ONE (12:59)
[2024-01-01] MEDS: GABAPENTIN 300 MG CAPSULE PO SCH (12:59)
[2024-01-01] MEDS ORDERED: ACETAMINOPHEN 325 MG TABLET PO PRN (13:00)
[2024-01-01] MEDS ORDERED: hydrALAZINE HCL 20 MG/1 ML VIAL IV PRN (13:00)
[2024-01-01 13:01] LABS: CALCIUM 8.2 mg/dL (8.5-10.1); CREATININE 0.7 mg/dL (0.6-1.3); POTASSIUM 3.2 mmol/L (3.5-5.1)
[2024-01-01 13:07] LABS: ALBUMIN 2.9 g/dL (3.4-5.0); BILIRUBIN,TOTAL 0.6 mg/dL (0.2-1.0); TOTAL PROTEIN, SERUM 6.2 g/dL (6.4-8.2)
[2024-01-01] MEDS ORDERED: MORPHINE SULFATE 2 MG/1 ML DISP.SYRIN ONE (14:28)
[2024-01-01] MEDS: MORPHINE SULFATE 2 MG/1 ML DISP.SYRIN IVP PRN (14:32)
[2024-01-01 16:30] VITALS: BP 96/41; TEMP 97.5; O2SAT 100
[2024-01-01] MEDS: DOCUSATE SODIUM 100 MG CAPSULE PO SCH (17:21)
[2024-01-01] MEDS: ENOXAPARIN SODIUM 60 MG/0.6 ML DISP.SYRIN SQ SCH (20:33)
[2024-01-01 20:42] VITALS: BP 106/36; TEMP 98; O2SAT 96
[2024-01-02 07:08] LABS: BASOPHILS % (AUTO) 0.7 % (0.0-2.0); EOSINOPHILS # (AUTO) 0.2 K/uL (0.0-0.7); EOSINOPHILS % (AUTO) 4.7 % (0.0-7.0); HEMATOCRIT 27.8 % (31.2-41.9); HEMOGLOBIN 9.1 g/dL (10.9-14.3); LYMPHOCYTES % (AUTO) 21.8 % (20.5-51.5); MEAN CORPUSCULAR HEMOGLOBIN 28.7 uug (24.7-32.8); MEAN CORPUSCULAR HGB CONC 33 g/dL (32.3-35.6); MEAN CORPUSCULAR VOLUME 87.7 fL (75.5-95.3); MONOCYTES # (AUTO) 0.5 K/uL (0.1-1.30); MONOCYTES % (AUTO) 9.7 % (0.0-11.0); NEUTROPHILS % (AUTO) 63.1 % (38.5-71.5); PLATELET COUNT (AUTO) 280 K/uL (179-408); RED BLOOD CELL COUNT(AUTO) 3.17 MIL/uL (3.63-4.92); RED CELL DISTRIBUTION WIDTH 14.2 % (12.3-17.7); WHITE BLOOD COUNT (AUTO) 4.7 K/uL (3.8-11.8)
[2024-01-02 07:13] LABS: DIFFERENTIAL COMMENT 1
[2024-01-02 07:20] LABS: ALBUMIN 2.5 g/dL (3.4-5.0); BILIRUBIN,TOTAL 0.4 mg/dL (0.2-1.0); CALCIUM 8.2 mg/dL (8.5-10.1); CREATININE 0.6 mg/dL (0.6-1.3); PHOSPHOROUS 3.4 mg/dL (2.5-4.9); POTASSIUM 3.4 mmol/L (3.5-5.1); TOTAL PROTEIN, SERUM 5.5 g/dL (6.4-8.2)
[2024-01-02 07:31] VITALS: BP 100/46; TEMP 98.4; O2SAT 96
[2024-01-02] MEDS: POTASSIUM CHLORIDE 20 MEQ TAB.PRT.SR PO ONE (09:19)
[2024-01-02] MEDS: APIXABAN 5 MG TABLET PO SCH (10:26)
[2024-01-02 15:03] VITALS: BP 102/57; TEMP 97.8; O2SAT 90
[2024-01-02 20:00] VITALS: BP 111/60; TEMP 97.4; O2SAT 98
[2024-01-03] MEDS: MORPHINE SULFATE 2 MG/1 ML DISP.SYRIN IV ONE (05:41)
[2024-01-03 06:00] VITALS: BP 102/50; TEMP 97.8; O2SAT 97
[2024-01-03 11:19] VITALS: BP 102/52; TEMP 98.1; O2SAT 96
[2024-01-03 14:45] VITALS: BP 121/60; TEMP 98.2; O2SAT 97
[2024-01-03 16:18] VITALS: BP 107/61; TEMP 98.5; O2SAT 98
[2024-01-03 20:05] VITALS: BP 108/72; TEMP 98.3; O2SAT 95
[2024-01-03] MEDS: ONDANSETRON 4 MG/2 ML VIAL IV PRN (21:57)
[2024-01-04 05:22] VITALS: BP 109/53; TEMP 97.9; O2SAT 95
[2024-01-04 12:00] VITALS: BP 103/57; TEMP 97.6; O2SAT 98
[2024-01-04 16:08] VITALS: BP 103/53; TEMP 97.8; O2SAT 98
[2024-01-04 20:19] VITALS: BP 103/52; TEMP 97.6; O2SAT 96
[2024-01-05 06:05] VITALS: BP 103/53; TEMP 98.1; O2SAT 95
[2024-01-05] MEDS ORDERED: DOCU-141 PO (09:09)
[2024-01-05 12:00] VITALS: BP 110/72; TEMP 97.8; O2SAT 96
[2024-01-06] MEDS ORDERED: HYDR2TAB4 PO (03:13)
== END 2024-01-05 16:15 | disposition home health service (06) | DRG 641 ==
LOC: ER 10:39 → MEDSURG3 15:23
PROVIDERS: ADMIT Internal Medicine; ATTEND Internal Medicine
DX: R62.7 Adult failure to thrive (principal); Z68.1 Body mass index [BMI] 19.9 or less, adult; E44.0 Moderate protein-calorie malnutrition; E27.40 Unspecified adrenocortical insufficiency; I74.3 Embolism and thrombosis of arteries of the lower extremities; E87.6 Hypokalemia; E88.09 Other disorders of plasma-protein metabolism, not elsewhere classified; Z87.820 Personal history of traumatic brain injury; G89.4 Chronic pain syndrome; Z79.01 Long term (current) use of anticoagulants; Z79.899 Other long term (current) drug therapy; R26.89 Other abnormalities of gait and mobility; D63.8 Anemia in other chronic diseases classified elsewhere; M79.605 Pain in left leg; M79.604 Pain in right leg; R51.9 Headache, unspecified
CPT/HCPCS: 36415; 72170; 84100; 85025; G0378; J1650; J1885; J2270; J2405; J7040; J8597

== ENCOUNTER 2024-01-06 02:21 | Emergency (ER) | payer MEDICARE, OTHER ==
[~2024-01-06] VITALS: Ht 167.6 cm; Wt 50.8 kg
[~2024-01-06 02:21] MED LIST changes: -APIX5TAB PO; +DOCU-141 PO; -GABA300C PO; -HYDR-4209 PO; -ONDA4TAB5 PO; -TRAM50TA2 PO
[2024-01-06] MEDS ORDERED: HYDROMORPHONE HCL 2 MG TABLET ONE (03:02)
[2024-01-06] MEDS: HYDROMORPHONE HCL 2 MG TABLET PO ONE (03:04)
[2024-01-06] MEDS ORDERED: HYDR2TAB4 PO (03:13)
== END 2024-01-06 03:15 | disposition home or self-care (01) ==
LOC: ER 02:24
DX: G89.29 Other chronic pain (principal); M79.605 Pain in left leg; E78.5 Hyperlipidemia, unspecified; J43.9 Emphysema, unspecified; F17.210 Nicotine dependence, cigarettes, uncomplicated; Z98.890 Other specified postprocedural states; Z79.899 Other long term (current) drug therapy; Z60.2 Problems related to living alone; Z88.1 Allergy status to other antibiotic agents
CPT/HCPCS: A4606; A4663

== ENCOUNTER 2024-01-06 09:21 | Emergency (ER) | payer MEDICARE, OTHER ==
[~2024-01-06] VITALS: Ht 167.6 cm; Wt 50.8 kg
[~2024-01-06 09:21] MED LIST changes: +HYDR2TAB4 PO
[2024-01-06 09:29] VITALS: O2SAT 98
== END 2024-01-06 12:35 | disposition left against medical advice (07) ==
LOC: ER 09:21
DX: R62.7 Adult failure to thrive (principal); R53.1 Weakness; G89.4 Chronic pain syndrome; E78.5 Hyperlipidemia, unspecified; F17.200 Nicotine dependence, unspecified, uncomplicated; Z98.890 Other specified postprocedural states; Z79.899 Other long term (current) drug therapy; Z68.1 Body mass index [BMI] 19.9 or less, adult; Z60.2 Problems related to living alone; Z88.8 Allergy status to other drugs, medicaments and biological substances
CPT/HCPCS: A4606; A4663

== ENCOUNTER 2024-01-08 06:43 | Emergency (ER) | payer MEDICARE, OTHER ==
[~2024-01-08] VITALS: Ht 167.6 cm; Wt 50.8 kg
[2024-01-08 08:00] VITALS: O2SAT 99
== END 2024-01-08 08:40 | disposition left against medical advice (07) ==
LOC: ER 06:48
DX: M79.605 Pain in left leg (principal); Z53.21 Procedure and treatment not carried out due to patient leaving prior to being seen by health care provider
CPT/HCPCS: A4606; A4663

== ENCOUNTER 2024-01-09 06:37 | Emergency (ER) | payer MEDICARE, OTHER ==
[~2024-01-09] VITALS: Ht 167.6 cm; Wt 50.3 kg
[2024-01-09] MEDS ORDERED: ACETAMINOPHEN 500 MG TABLET ONE (07:56)
[2024-01-09] MEDS: ACETAMINOPHEN 325 MG TABLET PO ONE (07:59)
[2024-01-09 08:59] VITALS: BP 110/71; O2SAT 98
== END 2024-01-09 09:00 | disposition home or self-care (01) ==
LOC: ER 06:42
DX: G89.4 Chronic pain syndrome (principal); R10.2 Pelvic and perineal pain; E78.5 Hyperlipidemia, unspecified; F17.210 Nicotine dependence, cigarettes, uncomplicated; Z88.8 Allergy status to other drugs, medicaments and biological substances; Z79.899 Other long term (current) drug therapy
CPT/HCPCS: A4606; A4663; A9150

== ENCOUNTER 2024-01-13 06:43 | Emergency (ER) | payer MEDICARE, OTHER ==
[~2024-01-13] VITALS: Ht 167.6 cm; Wt 50.8 kg
[2024-01-13 06:58] VITALS: O2SAT 99
== END 2024-01-13 08:10 | disposition home or self-care (01) ==
LOC: ER 06:44
DX: G89.4 Chronic pain syndrome (principal); M79.605 Pain in left leg; M79.604 Pain in right leg; E78.5 Hyperlipidemia, unspecified; F17.210 Nicotine dependence, cigarettes, uncomplicated; Z88.8 Allergy status to other drugs, medicaments and biological substances; Z79.899 Other long term (current) drug therapy
CPT/HCPCS: A4606; A4663

== ENCOUNTER 2024-01-19 08:55 | Emergency (ER) | payer MEDICARE, OTHER ==
[~2024-01-19] VITALS: Ht 167.6 cm; Wt 50.8 kg
[2024-01-19 09:55] LABS: *BILIRUBIN,URIN NEGATIVE (NEGATIVE); *BLOOD, URINE NEGATIVE (NEGATIVE); *CLARITY,URINE CLEAR (CLEAR); *COLOR,URINE YELLOW (YELLOW); *KETONES,URINE NEGATIVE (NEGATIVE); *PROTEIN,URINE NEGATIVE (NEGATIVE); *UROBILINOGEN,URINE 0.2 E.U./dl (NORMAL); LEUKOCYTE ESTERASE ,URINE NEGATIVE (NEGATIVE); NITRITE, URINE NEGATIVE (NEGATIVE); UGLUCOSE NEGATIVE (NEGATIVE)
[2024-01-19 10:05] LABS: BASOPHILS % (AUTO) 0.7 % (0.0-2.0); DIFFERENTIAL COMMENT 0; EOSINOPHILS # (AUTO) 0.1 K/uL (0.0-0.7); EOSINOPHILS % (AUTO) 2.1 % (0.0-7.0); HEMATOCRIT 28.2 % (31.2-41.9); HEMOGLOBIN 8.9 g/dL (10.9-14.3); LYMPHOCYTES # (AUTO) 1.8 K/uL (0.8-4.8); MEAN CORPUSCULAR HGB CONC 32 g/dL (32.3-35.6); MEAN CORPUSCULAR VOLUME 85.5 fL (75.5-95.3); MONOCYTES # (AUTO) 0.3 K/uL (0.1-1.30); MONOCYTES % (AUTO) 5.6 % (0.0-11.0); NEUTROPHILS # (AUTO) 3.6 K/uL (1.8-8.9); NEUTROPHILS % (AUTO) 60.6 % (38.5-71.5); PLATELET COUNT (AUTO) 394 K/uL (179-408); RED BLOOD CELL COUNT(AUTO) 3.29 MIL/uL (3.63-4.92); RED CELL DISTRIBUTION WIDTH 15.2 % (12.3-17.7); WHITE BLOOD COUNT (AUTO) 5.9 K/uL (3.8-11.8)
[2024-01-19 10:20] LABS: ALANINE AMINOTRANSFERASE 12 U/L (14-59); ALBUMIN 3.1 g/dL (3.4-5.0); ALKALINE PHOSPHATASE 77 U/L (50-136); ASPARTATE AMINOTRANSFERASE < 5 U/L (15-37); BILIRUBIN,DIRECT 0.1 mg/dL (0.0-0.2); BILIRUBIN,TOTAL 0.3 mg/dL (0.2-1.0); CALCIUM 8.9 mg/dL (8.5-10.1); CARBON DIOXIDE 27 mmol/L (21-32); CHLORIDE 105 mmol/L (98-107); CREATINE KINASE, TOTAL 14 U/L (26-192); CREATININE 0.5 mg/dL (0.6-1.3); GLUCOSE 100 mg/dL (74-106); SODIUM SERUM 139 mmol/L (136-145); TOTAL PROTEIN, SERUM 6.5 g/dL (6.4-8.2); UREA NITROGEN, BLOOD 16 mg/dL (7-18)
[2024-01-19] MEDS ORDERED: HYDROMORPHONE 1 MG/1 ML DISP.SYRIN ONE (10:45)
[2024-01-19] MEDS ORDERED: ONDANSETRON 4 MG/2 ML VIAL ONE (10:45)
[2024-01-19] MEDS ORDERED: SWABABLE VALVE TRANSFER SET EA MC ONE (10:48)
[2024-01-19] MEDS ORDERED: IV NORMAL SALINE 250 ML IV ONE (10:48)
[2024-01-19] MEDS ORDERED: IOHEXOL 300MG/ML 100 ML INFUS..BTL ONE (10:48)
[2024-01-19] MEDS: ONDANSETRON 4 MG/2 ML VIAL IV ONE (10:54)
[2024-01-19] MEDS: IV NS 1000 ML 1,000 ML IV ONE (10:54)
[2024-01-19] MEDS: HYDROMORPHONE 1 MG/1 ML DISP.SYRIN IV ONE (10:54)
[2024-01-19 10:56] LABS: IRON, SERUM 15 ug/dL (50-175)
[2024-01-19] MEDS ORDERED: [UNRECOGNIZED DRUG - CODE] IM (12:13)
[2024-01-19] MEDS ORDERED: FERR220S6 PO (12:13)
[2024-01-19] MEDS ORDERED: SYRI-29 MC (12:13)
[2024-01-19] MEDS ORDERED: ACET1TAB23 PO (12:14)
[2024-01-19] MEDS ORDERED: CYANOCOBALAMIN 1000 MCG/ML VIAL ONE (12:20)
[2024-01-19] MEDS: CYANOCOBALAMIN 1000 MCG/ML VIAL IM ONE (12:29)
[2024-01-19 12:36] VITALS: BP 133/84; TEMP 98; O2SAT 99
== END 2024-01-19 12:36 | disposition home or self-care (01) ==
LOC: ER 08:55
DX: D50.9 Iron deficiency anemia, unspecified (principal); E53.8 Deficiency of other specified B group vitamins; G89.29 Other chronic pain; M79.605 Pain in left leg; M79.604 Pain in right leg; E46 Unspecified protein-calorie malnutrition; Z68.1 Body mass index [BMI] 19.9 or less, adult; E78.5 Hyperlipidemia, unspecified; F17.210 Nicotine dependence, cigarettes, uncomplicated; Z88.8 Allergy status to other drugs, medicaments and biological substances; Z79.899 Other long term (current) drug therapy
CPT/HCPCS: 99285; 74177; 96374; 96361; 96375; 80076; 80048; 81003; 82550; 82607; 83550; 83735; 84443; 85025; 36415; 96372; J3420; J2405; Q9967; J1170; J7040; A4606; A4663

== ENCOUNTER 2024-02-09 15:02 | Inpatient (IN) | payer MEDICARE, OTHER ==
[~2024-02-09] VITALS: Ht 167.6 cm; Wt 50.3 kg
[~2024-02-09 15:02] MED LIST changes: +ACET1TAB23 PO; +FERR220S6 PO; +SYRI-29 MC; +[UNRECOGNIZED DRUG - CODE] IM
[2024-02-09] MEDS ORDERED: ONDANSETRON 4 MG/2 ML VIAL ONE (15:42)
[2024-02-09] MEDS ORDERED: HYDROMORPHONE 1 MG/1 ML DISP.SYRIN ONE ×3 (15:43→18:39)
[2024-02-09] MEDS: HYDROMORPHONE 1 MG/1 ML DISP.SYRIN IV ONE ×3 (15:48→18:45)
[2024-02-09] MEDS: ONDANSETRON 4 MG/2 ML VIAL IV ONE (15:49)
[2024-02-09] MEDS: IV NS 1000 ML 1,000 ML IV ONE (15:49)
[2024-02-09 16:01] LABS: BASOPHILS % (AUTO) 0.5 % (0.0-2.0); EOSINOPHILS # (AUTO) 0.2 K/uL (0.0-0.7); EOSINOPHILS % (AUTO) 2.7 % (0.0-7.0); HEMATOCRIT 26.6 % (31.2-41.9); HEMOGLOBIN 8.4 g/dL (10.9-14.3); LYMPHOCYTES # (AUTO) 1.3 K/uL (0.8-4.8); LYMPHOCYTES % (AUTO) 21.1 % (20.5-51.5); MEAN CORPUSCULAR HEMOGLOBIN 26.1 uug (24.7-32.8); MEAN CORPUSCULAR HGB CONC 32 g/dL (32.3-35.6); MEAN CORPUSCULAR VOLUME 82.2 fL (75.5-95.3); MONOCYTES # (AUTO) 0.5 K/uL (0.1-1.30); MONOCYTES % (AUTO) 8.6 % (0.0-11.0); NEUTROPHILS # (AUTO) 4.1 K/uL (1.8-8.9); NEUTROPHILS % (AUTO) 67.1 % (38.5-71.5); PLATELET COUNT (AUTO) 532 K/uL (179-408); RED BLOOD CELL COUNT(AUTO) 3.23 MIL/uL (3.63-4.92); RED CELL DISTRIBUTION WIDTH 15.5 % (12.3-17.7)
[2024-02-09 16:03] LABS: DIFFERENTIAL COMMENT 1
[2024-02-09 16:11] LABS: CALCIUM 8.2 mg/dL (8.5-10.1); CREATININE 0.6 mg/dL (0.6-1.3); POTASSIUM 3.3 mmol/L (3.5-5.1)
[2024-02-09] MEDS ORDERED: POTASSIUM BICARBONATE/CIT AC 25 MEQ TABLET.EFF ONE (17:00)
[2024-02-09] MEDS: POTASSIUM BICARBONATE/CIT AC 25 MEQ TABLET.EFF PO ONE (17:07)
[2024-02-09 17:15] LABS: IRON, SERUM 16 ug/dL (50-175)
[2024-02-09] MEDS ORDERED: SWABABLE VALVE TRANSFER SET EA MC ONE (17:39)
[2024-02-09] MEDS ORDERED: IOHEXOL 350 100 ML INFUS..BTL ONE (17:39)
[2024-02-09] MEDS ORDERED: IV NORMAL SALINE 250 ML IV ONE (17:39)
[2024-02-09 23:38] VITALS: BP 117/56; TEMP 98.4; O2SAT 100
[2024-02-09] MEDS ORDERED: ONDANSETRON 4 MG/2 ML VIAL IV PRN (23:45)
[2024-02-10] MEDS ORDERED: METRONIDAZOLE 500 MG/NS 100ML 100 ML IV ONE (00:07)
[2024-02-10] MEDS: METRONIDAZOLE 500 MG/NS 100ML 500 MG in PREMIXED 1 EACH IV SCH ×2 (00:10→09:00)
[2024-02-10] MEDS: HYDROMORPHONE 1 MG/1 ML DISP.SYRIN IV PRN (00:20)
[2024-02-10] MEDS: APIXABAN 5 MG TABLET PO SCH (00:23)
[2024-02-10] MEDS: IV NS 1000 ML 1,000 ML IV PRN (00:24)
[2024-02-10 03:02] VITALS: O2SAT 98
[2024-02-10 04:46] VITALS: BP 93/54; TEMP 98.1; O2SAT 95
[2024-02-10] MEDS: PANTOPRAZOLE SODIUM 40 MG TABLET.DR PO SCH (06:41)
[2024-02-10 06:55] LABS: BASOPHILS % (AUTO) 0.6 % (0.0-2.0); EOSINOPHILS # (AUTO) 0.3 K/uL (0.0-0.7); EOSINOPHILS % (AUTO) 4.7 % (0.0-7.0); HEMATOCRIT 26.5 % (31.2-41.9); HEMOGLOBIN 8.4 g/dL (10.9-14.3); LYMPHOCYTES % (AUTO) 31.8 % (20.5-51.5); MEAN CORPUSCULAR HEMOGLOBIN 26.5 uug (24.7-32.8); MEAN CORPUSCULAR HGB CONC 32 g/dL (32.3-35.6); MEAN CORPUSCULAR VOLUME 83.9 fL (75.5-95.3); MONOCYTES # (AUTO) 0.6 K/uL (0.1-1.30); NEUTROPHILS # (AUTO) 3.4 K/uL (1.8-8.9); NEUTROPHILS % (AUTO) 53.9 % (38.5-71.5); PLATELET COUNT (AUTO) 510 K/uL (179-408); RED BLOOD CELL COUNT(AUTO) 3.16 MIL/uL (3.63-4.92); RED CELL DISTRIBUTION WIDTH 15.5 % (12.3-17.7); WHITE BLOOD COUNT (AUTO) 6.3 K/uL (3.8-11.8)
[2024-02-10 06:56] LABS: DIFFERENTIAL COMMENT 1
[2024-02-10 07:02] LABS: CALCIUM 8.3 mg/dL (8.5-10.1); CREATININE 0.5 mg/dL (0.6-1.3); PHOSPHOROUS 3.4 mg/dL (2.5-4.9); POTASSIUM 3.4 mmol/L (3.5-5.1)
[2024-02-10] MEDS: DOCUSATE SODIUM 100 MG CAPSULE PO SCH (09:00)
[2024-02-10] MEDS: FERROUS SULFATE 325 MG TABEC PO SCH (09:00)
[2024-02-10] MEDS: POTASSIUM CHLORIDE 20 MEQ TAB.PRT.SR PO ONE (10:00)
[2024-02-10 11:17] VITALS: BP 122/57; TEMP 98; O2SAT 96
[2024-02-10] MEDS ORDERED: HYDR2TAB4 PO (11:56)
[2024-02-10] MEDS ORDERED: CLOP75TA33 PO (11:58)
[2024-02-10] MEDS: HYDROCODONE/APAP 5-325MG TABLET PO PRN (12:23)
[2024-02-10] MEDS: HYDROMORPHONE HCL 2 MG TABLET PO PRN (14:38)
[2024-02-10 16:05] VITALS: BP 97/53; TEMP 98.3; O2SAT 96
[2024-02-10 21:27] VITALS: BP 111/62; TEMP 98; O2SAT 97
[2024-02-11] MEDS: HYDROMORPHONE 1 MG/1 ML DISP.SYRIN IV PRN (03:50)
[2024-02-11 06:48] VITALS: BP 114/60; TEMP 98.2; O2SAT 96
[2024-02-11 11:52] LABS: BASOPHILS % (AUTO) 0.6 % (0.0-2.0); EOSINOPHILS # (AUTO) 0.2 K/uL (0.0-0.7); EOSINOPHILS % (AUTO) 3.3 % (0.0-7.0); HEMATOCRIT 31.7 % (31.2-41.9); HEMOGLOBIN 9.2 g/dL (10.9-14.3); LYMPHOCYTES # (AUTO) 1.4 K/uL (0.8-4.8); LYMPHOCYTES % (AUTO) 26.5 % (20.5-51.5); MEAN CORPUSCULAR HEMOGLOBIN 26.2 uug (24.7-32.8); MEAN CORPUSCULAR HGB CONC 29 g/dL (32.3-35.6); MEAN CORPUSCULAR VOLUME 90.5 fL (75.5-95.3); MONOCYTES # (AUTO) 0.3 K/uL (0.1-1.30); MONOCYTES % (AUTO) 5.7 % (0.0-11.0); NEUTROPHILS # (AUTO) 3.4 K/uL (1.8-8.9); NEUTROPHILS % (AUTO) 63.9 % (38.5-71.5); PLATELET COUNT (AUTO) 159 K/uL (179-408); RED CELL DISTRIBUTION WIDTH 16.4 % (12.3-17.7); WHITE BLOOD COUNT (AUTO) 5.3 K/uL (3.8-11.8)
[2024-02-11 11:54] LABS: DIFFERENTIAL COMMENT 1
[2024-02-11 12:02] LABS: CALCIUM 8.6 mg/dL (8.5-10.1); CARBON DIOXIDE 26 mmol/L (21-32); CHLORIDE 105 mmol/L (98-107); CREATININE 0.4 mg/dL (0.6-1.3); GLUCOSE 107 mg/dL (74-106); MAGNESIUM 2.2 mg/dL (1.8-2.4); PHOSPHOROUS 3.4 mg/dL (2.5-4.9); SODIUM SERUM 137 mmol/L (136-145); UREA NITROGEN, BLOOD 6 mg/dL (7-18)
[2024-02-11] MEDS: CLOPIDOGREL 75 MG TABLET PO SCH (13:18)
[2024-02-11] MEDS: ENSURE WITH FIBER 237 ML LIQUID (CHOCOLATE) PO SCH (14:00)
[2024-02-11 20:00] VITALS: BP 124/66; TEMP 98.5; O2SAT 94
[2024-02-12] MEDS: HYDROMORPHONE 1 MG/1 ML DISP.SYRIN IVP PRN (01:01)
[2024-02-12 06:00] VITALS: BP 118/58; TEMP 98.7; O2SAT 93
[2024-02-12 07:52] VITALS: BP 117/61; TEMP 97.6; O2SAT 97
[2024-02-13 00:06] VITALS: O2SAT 98
[2024-02-13 07:32] VITALS: BP 120/66; TEMP 97.6; O2SAT 95
[2024-02-13 08:00] VITALS: BP 151/88; TEMP 97.8; O2SAT 97
[2024-02-13] MEDS: ACETAMINOPHEN 325 MG TABLET PO PRN (14:13)
[2024-02-13 20:59] VITALS: O2SAT 96
[2024-02-14 15:45] VITALS: BP 113/68; TEMP 98.2; O2SAT 97
[2024-02-14 20:00] VITALS: BP 117/71; TEMP 98.3; O2SAT 96
[2024-02-14 20:37] VITALS: O2SAT 96
[2024-02-15 06:44] VITALS: BP 109/59; TEMP 98.3; O2SAT 96
[2024-02-15 15:08] VITALS: BP 120/56; TEMP 97.7; O2SAT 97
[2024-02-15 20:47] VITALS: O2SAT 96
[2024-02-16 06:42] VITALS: BP 104/55; TEMP 98.3; O2SAT 95
[2024-02-16 10:59] VITALS: BP 102/54; TEMP 98.2; O2SAT 98
== END 2024-02-16 12:00 | disposition home or self-care (01) | DRG 372 ==
LOC: ER 15:03 → TELE3 22:51 → MEDSURG3 23:51
PROVIDERS: ADMIT Nurse Practitioner Acute Care; ATTEND Nurse Practitioner Acute Care
DX: A04.9 Bacterial intestinal infection, unspecified (principal); E44.0 Moderate protein-calorie malnutrition; G89.18 Other acute postprocedural pain; Z90.49 Acquired absence of other specified parts of digestive tract; G89.4 Chronic pain syndrome; Z76.5 Malingerer [conscious simulation]; R20.2 Paresthesia of skin; R09.02 Hypoxemia; J43.9 Emphysema, unspecified; E78.5 Hyperlipidemia, unspecified; E88.09 Other disorders of plasma-protein metabolism, not elsewhere classified; I10 Essential (primary) hypertension; E87.6 Hypokalemia; Z87.891 Personal history of nicotine dependence; Z87.820 Personal history of traumatic brain injury; Z86.718 Personal history of other venous thrombosis and embolism; Z53.20 Procedure and treatment not carried out because of patient's decision for unspecified reasons
CPT/HCPCS: 36415; 71045; 71275; 83550; 83605; 83735; 84100; 85025; 93005; A4606; A4663; G0378; J1170; J2405; J3490; J7040; Q9967

== ENCOUNTER 2024-03-25 01:45 | Emergency (ER) | payer MEDICARE, OTHER ==
[~2024-03-25] VITALS: Ht 167.6 cm; Wt 54.4 kg
[~2024-03-25 01:45] MED LIST changes: -ACET1TAB23 PO; -DOCU-141 PO; -FERR220S6 PO; -MECL-159 PO; -SYRI-29 MC; -[UNRECOGNIZED DRUG - CODE] IM
[2024-03-25 03:41] LABS: BASOPHILS % (AUTO) 0.4 % (0.0-2.0); DIFFERENTIAL COMMENT 0; EOSINOPHILS % (AUTO) 0.4 % (0.0-7.0); HEMATOCRIT 34.4 % (31.2-41.9); HEMOGLOBIN 10.8 g/dL (10.9-14.3); LYMPHOCYTES # (AUTO) 0.9 K/uL (0.8-4.8); LYMPHOCYTES % (AUTO) 11.1 % (20.5-51.5); MEAN CORPUSCULAR HGB CONC 31 g/dL (32.3-35.6); MEAN CORPUSCULAR VOLUME 79.7 fL (75.5-95.3); MONOCYTES # (AUTO) 0.4 K/uL (0.1-1.30); MONOCYTES % (AUTO) 5.3 % (0.0-11.0); NEUTROPHILS # (AUTO) 6.6 K/uL (1.8-8.9); NEUTROPHILS % (AUTO) 82.8 % (38.5-71.5); PLATELET COUNT (AUTO) 316 K/uL (179-408); RED BLOOD CELL COUNT(AUTO) 4.32 MIL/uL (3.63-4.92); RED CELL DISTRIBUTION WIDTH 18.6 % (12.3-17.7)
[2024-03-25] MEDS: IV NORMAL SALINE 1000 ML BAG IV ONE (03:41)
[2024-03-25 03:56] LABS: CALCIUM 8.4 mg/dL (8.5-10.1); CARBON DIOXIDE 32 mmol/L (21-32); CHLORIDE 103 mmol/L (98-107); CREATININE 0.6 mg/dL (0.6-1.3); GLUCOSE 122 mg/dL (74-106); POTASSIUM 3.3 mmol/L (3.5-5.1); SODIUM SERUM 141 mmol/L (136-145); UREA NITROGEN, BLOOD 9 mg/dL (7-18)
[2024-03-25 04:05] LABS: ALANINE AMINOTRANSFERASE 16 U/L (14-59); ALBUMIN 2.9 g/dL (3.4-5.0); ALKALINE PHOSPHATASE 71 U/L (50-136); ASPARTATE AMINOTRANSFERASE 13 U/L (15-37); BILIRUBIN,DIRECT 0.1 mg/dL (0.0-0.2); BILIRUBIN,TOTAL 0.5 mg/dL (0.2-1.0); TOTAL PROTEIN, SERUM 6.2 g/dL (6.4-8.2)
[2024-03-25 04:42] LABS: LIPASE 15 U/L (16-77)
[2024-03-25] MEDS ORDERED: OXYC15TA82 PO (06:20)
[2024-03-25] MEDS ORDERED: POTASSIUM BICARBONATE/CIT AC 25 MEQ TABLET.EFF ONE (07:06)
[2024-03-25] MEDS: POTASSIUM BICARBONATE/CIT AC 25 MEQ TABLET.EFF PO ONE (07:10)
[2024-03-25 08:12] LABS: IRON, SERUM 25 ug/dL (50-175)
[2024-03-25] MEDS ORDERED: HYDROCODONE/APAP 10-325 MG TABLET ONE (08:32)
[2024-03-25] MEDS: HYDROCODONE/APAP 10-325 MG TABLET PO ONE (08:34)
[2024-03-25] MEDS ORDERED: IOHEXOL 300MG/ML 100 ML INFUS..BTL ONE (09:02)
[2024-03-25] MEDS ORDERED: IV NORMAL SALINE 250 ML IV ONE (09:03)
[2024-03-25] MEDS ORDERED: SWABABLE VALVE TRANSFER SET EA MC ONE (09:03)
[2024-03-25 11:15] VITALS: BP 105/68; TEMP 97; O2SAT 98
== END 2024-03-25 11:16 | disposition home or self-care (01) ==
LOC: ER 01:48
DX: R10.9 Unspecified abdominal pain (principal); E78.5 Hyperlipidemia, unspecified; J43.9 Emphysema, unspecified; N18.9 Chronic kidney disease, unspecified; F17.200 Nicotine dependence, unspecified, uncomplicated; Z98.890 Other specified postprocedural states; Z79.891 Long term (current) use of opiate analgesic; Z79.899 Other long term (current) drug therapy; Z60.2 Problems related to living alone; Z88.1 Allergy status to other antibiotic agents
CPT/HCPCS: 99285; 74177; 80076; 80048; 83550; 83690; 85025; 85730; 84484; 36415; 93005; Q9967; J7040; A4606; A4663

== ENCOUNTER 2024-03-29 16:54 | Emergency (ER) | payer MEDICARE, OTHER ==
[~2024-03-29] VITALS: Ht 167.6 cm; Wt 54.4 kg
[~2024-03-29 16:54] MED LIST changes: -APIX5TAB4 PO; +OXYC15TA82 PO
[2024-03-29 17:06] VITALS: O2SAT 99
== END 2024-03-29 18:57 | disposition left against medical advice (07) ==
LOC: ER 16:54
DX: R10.9 Unspecified abdominal pain (principal); Z53.21 Procedure and treatment not carried out due to patient leaving prior to being seen by health care provider; E78.5 Hyperlipidemia, unspecified; F17.200 Nicotine dependence, unspecified, uncomplicated; Z98.890 Other specified postprocedural states; Z79.891 Long term (current) use of opiate analgesic; Z60.2 Problems related to living alone; Z88.1 Allergy status to other antibiotic agents
CPT/HCPCS: A4606; A4663

== ENCOUNTER 2024-04-13 16:35 | Emergency (ER) | payer MEDICARE, OTHER ==
[~2024-04-13] VITALS: Ht 167.6 cm; Wt 42.6 kg
[2024-04-13] MEDS ORDERED: IOHEXOL 350 100 ML INFUS..BTL ONE (17:01)
[2024-04-13] MEDS ORDERED: SWABABLE VALVE TRANSFER SET EA MC ONE (17:02)
[2024-04-13] MEDS ORDERED: IV NORMAL SALINE 250 ML IV ONE (17:02)
[2024-04-13 17:20] LABS: BASOPHILS # (AUTO) 0.1 K/UL (0.0-0.2); BASOPHILS % (AUTO) 1.1 % (0.0-2.0); DIFFERENTIAL COMMENT 0; EOSINOPHILS # (AUTO) 0.3 K/uL (0.0-0.7); EOSINOPHILS % (AUTO) 4.3 % (0.0-7.0); HEMATOCRIT 39.1 % (31.2-41.9); HEMOGLOBIN 12.9 g/dL (10.9-14.3); LYMPHOCYTES # (AUTO) 0.4 K/uL (0.8-4.8); LYMPHOCYTES % (AUTO) 5.6 % (20.5-51.5); MEAN CORPUSCULAR HEMOGLOBIN 31.4 uug (24.7-32.8); MEAN CORPUSCULAR HGB CONC 33 g/dL (32.3-35.6); MEAN CORPUSCULAR VOLUME 95.1 fL (75.5-95.3); MONOCYTES # (AUTO) 0.4 K/uL (0.1-1.30); MONOCYTES % (AUTO) 5.6 % (0.0-11.0); NEUTROPHILS % (AUTO) 83.4 % (38.5-71.5); PLATELET COUNT (AUTO) 153 K/uL (179-408); RED BLOOD CELL COUNT(AUTO) 4.11 MIL/uL (3.63-4.92); WHITE BLOOD COUNT (AUTO) 7.2 K/uL (3.8-11.8)
[2024-04-13 17:25] LABS: CALCIUM 9.3 mg/dL (8.5-10.1); CREATININE 0.7 mg/dL (0.6-1.3); POTASSIUM 4.3 mmol/L (3.5-5.1)
[2024-04-13 17:30] LABS: ALBUMIN 3.6 g/dL (3.4-5.0); BILIRUBIN,DIRECT 0.1 mg/dL (0.0-0.2); BILIRUBIN,TOTAL 0.6 mg/dL (0.2-1.0); TOTAL PROTEIN, SERUM 6.7 g/dL (6.4-8.2)
[2024-04-13] MEDS ORDERED: ONDANSETRON 4 MG/2 ML VIAL ONE (17:33)
[2024-04-13] MEDS ORDERED: HYDROCODONE/APAP 5-325MG TABLET ONE (17:33)
[2024-04-13] MEDS: ONDANSETRON 4 MG/2 ML VIAL IV ONE (17:35)
[2024-04-13] MEDS: IV NORMAL SALINE 1000 ML BAG IV ONE (17:35)
[2024-04-13] MEDS: HYDROCODONE/APAP 5-325MG TABLET PO ONE (17:36)
[2024-04-13 19:36] VITALS: BP 129/60; TEMP 98.6; O2SAT 99
== END 2024-04-13 19:36 | disposition home or self-care (01) ==
LOC: ER 16:40
DX: G89.4 Chronic pain syndrome (principal); R10.84 Generalized abdominal pain; J43.9 Emphysema, unspecified; E78.5 Hyperlipidemia, unspecified; F17.200 Nicotine dependence, unspecified, uncomplicated; Z98.890 Other specified postprocedural states; Z85.038 Personal history of other malignant neoplasm of large intestine; Z88.8 Allergy status to other drugs, medicaments and biological substances
CPT/HCPCS: 99285; 74174; 96374; 71275; 96361; 80076; 80048; 83690; 85025; 36415; J2405; Q9967; J7040; A4606; A4663

== ENCOUNTER 2024-04-14 15:30 | Emergency (ER) | payer MEDICARE, OTHER ==
[~2024-04-14] VITALS: Ht 167.6 cm; Wt 49.9 kg
[2024-04-14 15:34] VITALS: O2SAT 99
== END 2024-04-14 16:06 | disposition left against medical advice (07) ==
LOC: ER 15:32
DX: G89.29 Other chronic pain (principal); R10.9 Unspecified abdominal pain; I73.9 Peripheral vascular disease, unspecified; I74.5 Embolism and thrombosis of iliac artery; F17.200 Nicotine dependence, unspecified, uncomplicated; J43.9 Emphysema, unspecified; Z98.890 Other specified postprocedural states; Z79.891 Long term (current) use of opiate analgesic; Z79.899 Other long term (current) drug therapy; Z60.2 Problems related to living alone; Z88.1 Allergy status to other antibiotic agents
CPT/HCPCS: A4606; A4663

== ENCOUNTER 2024-06-16 12:57 | Emergency (ER) | payer MEDICARE, OTHER ==
[~2024-06-16] VITALS: Ht 167.6 cm; Wt 41.7 kg
[2024-06-16 13:52] LABS: BASOPHILS % (AUTO) 0.5 % (0.0-2.0); EOSINOPHILS # (AUTO) 0.1 K/uL (0.0-0.7); EOSINOPHILS % (AUTO) 1.6 % (0.0-7.0); HEMATOCRIT 35.6 % (31.2-41.9); HEMOGLOBIN 10.9 g/dL (10.9-14.3); LYMPHOCYTES # (AUTO) 1.4 K/uL (0.8-4.8); LYMPHOCYTES % (AUTO) 22.3 % (20.5-51.5); MEAN CORPUSCULAR HEMOGLOBIN 25.2 uug (24.7-32.8); MEAN CORPUSCULAR HGB CONC 31 g/dL (32.3-35.6); MEAN CORPUSCULAR VOLUME 82.6 fL (75.5-95.3); MONOCYTES # (AUTO) 0.4 K/uL (0.1-1.30); MONOCYTES % (AUTO) 6.9 % (0.0-11.0); NEUTROPHILS # (AUTO) 4.2 K/uL (1.8-8.9); NEUTROPHILS % (AUTO) 68.7 % (38.5-71.5); PLATELET COUNT (AUTO) 274 K/uL (179-408); RED BLOOD CELL COUNT(AUTO) 4.32 MIL/uL (3.63-4.92); RED CELL DISTRIBUTION WIDTH 17.3 % (12.3-17.7); WHITE BLOOD COUNT (AUTO) 6.1 K/uL (3.8-11.8)
[2024-06-16 13:53] LABS: DIFFERENTIAL COMMENT 1
[2024-06-16 14:00] LABS: CALCIUM 9.6 mg/dL (8.5-10.1); CARBON DIOXIDE 27 mmol/L (21-32); CHLORIDE 103 mmol/L (98-107); CREATININE 0.5 mg/dL (0.6-1.3); GLUCOSE 121 mg/dL (74-106); POTASSIUM 4.1 mmol/L (3.5-5.1); SODIUM SERUM 140 mmol/L (136-145); UREA NITROGEN, BLOOD 11 mg/dL (7-18)
[2024-06-16 14:06] LABS: ALANINE AMINOTRANSFERASE 24 U/L (14-59); ALBUMIN 3.3 g/dL (3.4-5.0); ALKALINE PHOSPHATASE 89 U/L (50-136); ASPARTATE AMINOTRANSFERASE 14 U/L (15-37); BILIRUBIN,DIRECT < 0.1 mg/dL (0.0-0.2); BILIRUBIN,TOTAL 0.5 mg/dL (0.2-1.0); TOTAL PROTEIN, SERUM 7.2 g/dL (6.4-8.2)
[2024-06-16 14:17] VITALS: BP 121/79; TEMP 98; O2SAT 96
== END 2024-06-16 14:28 | disposition left against medical advice (07) ==
LOC: ER 12:57
DX: M79.605 Pain in left leg (principal); M79.604 Pain in right leg; F17.200 Nicotine dependence, unspecified, uncomplicated; Z79.899 Other long term (current) drug therapy; Z60.2 Problems related to living alone
CPT/HCPCS: 36415; 85025; 85730; A4606; A4663

== ENCOUNTER 2024-06-18 08:57 | Emergency (ER) | payer MEDICARE, OTHER ==
[~2024-06-18] VITALS: Ht 167.6 cm; Wt 41.7 kg
[2024-06-18 08:56] VITALS: O2SAT 97
== END 2024-06-18 09:30 | disposition left against medical advice (07) ==
LOC: ER 08:57
DX: M79.605 Pain in left leg (principal); M79.604 Pain in right leg; F17.200 Nicotine dependence, unspecified, uncomplicated; G89.4 Chronic pain syndrome; Z79.899 Other long term (current) drug therapy; Z60.2 Problems related to living alone
CPT/HCPCS: A4606; A4663

== ENCOUNTER 2024-11-02 15:42 | Emergency (ER) | payer MEDICARE, OTHER ==
[~2024-11-02] VITALS: Ht 167.6 cm; Wt 38.6 kg
[2024-11-02] MEDS: IV NORMAL SALINE 1000 ML BAG IV ONE (16:31)
[2024-11-02] MEDS: ONDANSETRON 4 MG/2 ML VIAL IV ONE (16:31)
[2024-11-02] MEDS ORDERED: ONDANSETRON 4 MG/2 ML VIAL ONE (16:35)
[2024-11-02 16:43] LABS: BASOPHILS % (AUTO) 0.3 % (0.0-2.0); DIFFERENTIAL COMMENT 1; EOSINOPHILS % (AUTO) 0.5 % (0.0-7.0); HEMATOCRIT 33.7 % (31.2-41.9); LYMPHOCYTES # (AUTO) 1.3 K/uL (0.8-4.8); LYMPHOCYTES % (AUTO) 20.6 % (20.5-51.5); MEAN CORPUSCULAR HGB CONC 33 g/dL (32.3-35.6); MEAN CORPUSCULAR VOLUME 86.2 fL (75.5-95.3); MONOCYTES # (AUTO) 0.4 K/uL (0.1-1.30); MONOCYTES % (AUTO) 6.7 % (0.0-11.0); NEUTROPHILS # (AUTO) 4.5 K/uL (1.8-8.9); NEUTROPHILS % (AUTO) 71.9 % (38.5-71.5); PLATELET COUNT (AUTO) 209 K/uL (179-408); RED BLOOD CELL COUNT(AUTO) 3.91 MIL/uL (3.63-4.92); RED CELL DISTRIBUTION WIDTH 15.5 % (12.3-17.7); WHITE BLOOD COUNT (AUTO) 6.3 K/uL (3.8-11.8)
[2024-11-02 16:50] LABS: CALCIUM 8.4 mg/dL (8.5-10.1); CREATININE 0.7 mg/dL (0.6-1.3); POTASSIUM 3.3 mmol/L (3.5-5.1)
[2024-11-02] MEDS ORDERED: HYDROCODONE/APAP 10-325 MG TABLET ONE (16:53)
[2024-11-02] MEDS: HYDROCODONE/APAP 10-325 MG TABLET PO ONE (16:54)
[2024-11-02 16:56] LABS: ALBUMIN 3.2 g/dL (3.4-5.0); BILIRUBIN,DIRECT 0.2 mg/dL (0.0-0.2); BILIRUBIN,TOTAL 0.5 mg/dL (0.2-1.0); TOTAL PROTEIN, SERUM 6.8 g/dL (6.4-8.2)
[2024-11-02] MEDS ORDERED: POTASSIUM CHLORIDE 20 MEQ TAB.PRT.SR ONE (17:18)
[2024-11-02] MEDS: POTASSIUM CHLORIDE 20 MEQ TAB.PRT.SR PO ONE (17:21)
[2024-11-02] MEDS ORDERED: NALO4SPR BNOSTRILS (17:23)
[2024-11-02 17:40] VITALS: O2SAT 98
== END 2024-11-02 17:43 | disposition home or self-care (01) ==
LOC: ER 15:48
DX: G89.29 Other chronic pain (principal); R10.84 Generalized abdominal pain; R06.00 Dyspnea, unspecified; R42 Dizziness and giddiness; R53.1 Weakness; E78.5 Hyperlipidemia, unspecified; F17.200 Nicotine dependence, unspecified, uncomplicated; Z85.038 Personal history of other malignant neoplasm of large intestine
CPT/HCPCS: 99285; 96374; 71045; 96361; 80076; 80048; 82962; 83690; 85025; 93005; J2405; J7040; A4606; A4663

== ENCOUNTER 2024-11-26 09:35 | Emergency (ER) | payer MEDICARE, OTHER ==
[~2024-11-26] VITALS: Ht 167.6 cm; Wt 38.6 kg
[~2024-11-26 09:35] MED LIST changes: +NALO4SPR BNOSTRILS
[2024-11-26] MEDS ORDERED: LORAZEPAM 2 MG/1 ML VIAL ONE (10:12)
[2024-11-26 10:18] LABS: BASOPHILS % (AUTO) 0.7 % (0.0-2.0); EOSINOPHILS % (AUTO) 0.7 % (0.0-7.0); HEMATOCRIT 34.1 % (31.2-41.9); HEMOGLOBIN 11.1 g/dL (10.9-14.3); LYMPHOCYTES # (AUTO) 1.7 K/uL (0.8-4.8); LYMPHOCYTES % (AUTO) 32.9 % (20.5-51.5); MEAN CORPUSCULAR HEMOGLOBIN 28.4 uug (24.7-32.8); MEAN CORPUSCULAR HGB CONC 32 g/dL (32.3-35.6); MEAN CORPUSCULAR VOLUME 87.6 fL (75.5-95.3); MONOCYTES # (AUTO) 0.4 K/uL (0.1-1.30); MONOCYTES % (AUTO) 7.5 % (0.0-11.0); NEUTROPHILS % (AUTO) 58.2 % (38.5-71.5); PLATELET COUNT (AUTO) 267 K/uL (179-408); RED CELL DISTRIBUTION WIDTH 15.7 % (12.3-17.7); WHITE BLOOD COUNT (AUTO) 5.1 K/uL (3.8-11.8)
[2024-11-26] MEDS: IV NORMAL SALINE 1000 ML BAG IV ONE ×2 (10:21→13:51)
[2024-11-26] MEDS: LORAZEPAM 2 MG/1 ML VIAL IV ONE (10:21)
[2024-11-26 10:32] LABS: ALBUMIN 3.4 g/dL (3.4-5.0); BILIRUBIN,DIRECT 0.1 mg/dL (0.0-0.2); BILIRUBIN,TOTAL 0.4 mg/dL (0.2-1.0); CALCIUM 9.4 mg/dL (8.5-10.1); CREATININE 0.6 mg/dL (0.6-1.3); POTASSIUM 3.7 mmol/L (3.5-5.1); TOTAL PROTEIN, SERUM 6.6 g/dL (6.4-8.2)
[2024-11-26 10:33] LABS: DIFFERENTIAL COMMENT 1
[2024-11-26 14:03] LABS: *BILIRUBIN,URIN NEGATIVE (NEGATIVE); *BLOOD, URINE NEGATIVE (NEGATIVE); *CLARITY,URINE CLEAR (CLEAR); *COLOR,URINE YELLOW (YELLOW); *KETONES,URINE NEGATIVE (NEGATIVE); *PROTEIN,URINE NEGATIVE (NEGATIVE); *UROBILINOGEN,URINE 0.2 E.U./dl (NORMAL); LEUKOCYTE ESTERASE ,URINE NEGATIVE (NEGATIVE); NITRITE, URINE NEGATIVE (NEGATIVE); PH,URINE 5.5 (5.0-8.0); UGLUCOSE NEGATIVE (NEGATIVE)
[2024-11-26] MEDS ORDERED: HYDROMORPHONE HCL 2 MG TABLET ONE ×2 (14:22→22:52)
[2024-11-26] MEDS: HYDROMORPHONE HCL 2 MG TABLET PO ONE ×2 (14:24→20:50)
[2024-11-26] MEDS ORDERED: HYDR2TAB4 PO (14:29)
[2024-11-26 15:35] LABS: *AMPHETAMINE, URINE NEGATIVE (NEGATIVE); *BARBITURATE, URINE NEGATIVE (NEGATIVE); *BENZODIAZEPINE, URINE NEGATIVE (NEGATIVE); *CANNABINOID, URINE NEGATIVE (NEGATIVE); *COCCAINE, URINE NEGATIVE (NEGATIVE); *OPIATE, URINE POSITIVE (NEGATIVE); *PHENCYCLIDINE SCREEN,URINE NEGATIVE (NEGATIVE); FENTANYL, URINE NEGATIVE (NEGATIVE)
[2024-11-26 15:39] LABS: ETHANOL < 3 MG/DL (0-10)
[2024-11-26 19:30] VITALS: O2SAT 98
== END 2024-11-26 23:21 | disposition home or self-care (01) ==
LOC: ER 09:35
DX: G89.4 Chronic pain syndrome (principal); F17.210 Nicotine dependence, cigarettes, uncomplicated; R19.7 Diarrhea, unspecified; R55 Syncope and collapse; Z59.00 Homelessness unspecified; Z85.038 Personal history of other malignant neoplasm of large intestine; Z88.8 Allergy status to other drugs, medicaments and biological substances; Z86.69 Personal history of other diseases of the nervous system and sense organs; Z86.79 Personal history of other diseases of the circulatory system; Z87.09 Personal history of other diseases of the respiratory system; Z87.39 Personal history of other diseases of the musculoskeletal system and connective tissue; Z60.2 Problems related to living alone; Z20.822 Contact with and (suspected) exposure to COVID-19
CPT/HCPCS: 80076; 80048; 81003; 85025; 87426; 36415; 97161; 97116; 93005; 99284; 96361; 96374; 83605; 80320; 80307; J2060; J7040 ×2; A4606; A4663; G0480

== ENCOUNTER 2024-12-21 14:45 | Inpatient (IN) | payer MEDICARE, OTHER ==
[~2024-12-21] VITALS: Ht 167.6 cm; Wt 40.8 kg
[2024-12-21 15:08] LABS: BASOPHILS % (AUTO) 0.7 % (0.0-2.0); EOSINOPHILS % (AUTO) 0.4 % (0.0-7.0); HEMATOCRIT 34.9 % (31.2-41.9); HEMOGLOBIN 11.3 g/dL (10.9-14.3); LYMPHOCYTES # (AUTO) 1.7 K/uL (0.8-4.8); LYMPHOCYTES % (AUTO) 30.5 % (20.5-51.5); MEAN CORPUSCULAR HEMOGLOBIN 28.8 uug (24.7-32.8); MEAN CORPUSCULAR HGB CONC 33 g/dL (32.3-35.6); MEAN CORPUSCULAR VOLUME 88.6 fL (75.5-95.3); MONOCYTES # (AUTO) 0.4 K/uL (0.1-1.30); MONOCYTES % (AUTO) 6.4 % (0.0-11.0); NEUTROPHILS # (AUTO) 3.4 K/uL (1.8-8.9); PLATELET COUNT (AUTO) 236 K/uL (179-408); RED BLOOD CELL COUNT(AUTO) 3.94 MIL/uL (3.63-4.92); RED CELL DISTRIBUTION WIDTH 14.1 % (12.3-17.7); WHITE BLOOD COUNT (AUTO) 5.5 K/uL (3.8-11.8)
[2024-12-21] MEDS: IV NORMAL SALINE 500 ML BAG IV ONE (15:10)
[2024-12-21 15:16] LABS: DIFFERENTIAL COMMENT 1
[2024-12-21 15:24] LABS: CALCIUM 8.3 mg/dL (8.5-10.1); CARBON DIOXIDE 26 mmol/L (21-32); CHLORIDE 102 mmol/L (98-107); CREATININE 0.7 mg/dL (0.6-1.3); GLUCOSE 261 mg/dL (74-106); POTASSIUM 3.3 mmol/L (3.5-5.1); SODIUM SERUM 138 mmol/L (136-145); UREA NITROGEN, BLOOD 12 mg/dL (7-18)
[2024-12-21] MEDS ORDERED: POTASSIUM CHLORIDE 20 MEQ TAB.PRT.SR ONE (16:27)
[2024-12-21] MEDS: POTASSIUM CHLORIDE 20 MEQ TAB.PRT.SR PO ONE (16:31)
[2024-12-21 16:43] LABS: ALBUMIN 3.4 g/dL (3.4-5.0); BILIRUBIN,DIRECT 0.1 mg/dL (0.0-0.2); BILIRUBIN,TOTAL 0.6 mg/dL (0.2-1.0); TOTAL PROTEIN, SERUM 6.4 g/dL (6.4-8.2)
[2024-12-21 16:44] LABS: ETHANOL < 3 MG/DL (0-10)
[2024-12-21 18:10] VITALS: BP 110/56; TEMP 98; O2SAT 97
[2024-12-21] MEDS ORDERED: MAGNESIUM HYDROXIDE 30 ML LIQUID UDC PO PRN (18:45)
[2024-12-21] MEDS ORDERED: ZOLPIDEM 5 MG TABLET PO PRN (18:45)
[2024-12-21] MEDS ORDERED: REMEDY ESSENTIAL ZINC PASTE 113 GM TP PRN (18:45)
[2024-12-21] MEDS ORDERED: ONDANSETRON 4 MG/2 ML VIAL IV PRN (18:45)
[2024-12-21] MEDS: IV NS 1000 ML 1,000 ML IV PRN (20:29)
[2024-12-22] MEDS: HYDROMORPHONE 1 MG/1 ML DISP.SYRIN IV PRN (02:00)
[2024-12-22 05:08] VITALS: BP 95/40; TEMP 98.9; O2SAT 95
[2024-12-22] MEDS ORDERED: HYDROMORPHONE 1 MG/1 ML DISP.SYRIN IV PRN (06:00)
[2024-12-22 06:49] LABS: BASOPHILS % (AUTO) 0.8 % (0.0-2.0); EOSINOPHILS # (AUTO) 0.1 K/uL (0.0-0.7); EOSINOPHILS % (AUTO) 1.6 % (0.0-7.0); HEMATOCRIT 31.9 % (31.2-41.9); HEMOGLOBIN 10.4 g/dL (10.9-14.3); LYMPHOCYTES # (AUTO) 2.1 K/uL (0.8-4.8); LYMPHOCYTES % (AUTO) 46.8 % (20.5-51.5); MEAN CORPUSCULAR HEMOGLOBIN 28.9 uug (24.7-32.8); MEAN CORPUSCULAR HGB CONC 33 g/dL (32.3-35.6); MEAN CORPUSCULAR VOLUME 88.4 fL (75.5-95.3); MONOCYTES # (AUTO) 0.4 K/uL (0.1-1.30); MONOCYTES % (AUTO) 8.7 % (0.0-11.0); NEUTROPHILS # (AUTO) 1.8 K/uL (1.8-8.9); NEUTROPHILS % (AUTO) 42.1 % (38.5-71.5); PLATELET COUNT (AUTO) 215 K/uL (179-408); RED BLOOD CELL COUNT(AUTO) 3.61 MIL/uL (3.63-4.92); RED CELL DISTRIBUTION WIDTH 14.4 % (12.3-17.7); WHITE BLOOD COUNT (AUTO) 4.4 K/uL (3.8-11.8)
[2024-12-22 07:04] LABS: CALCIUM 8.6 mg/dL (8.5-10.1); CARBON DIOXIDE 26 mmol/L (21-32); CHLORIDE 108 mmol/L (98-107); CREATININE 0.4 mg/dL (0.6-1.3); GLUCOSE 92 mg/dL (74-106); MAGNESIUM 1.8 mg/dL (1.8-2.4); PHOSPHOROUS 3.4 mg/dL (2.5-4.9); POTASSIUM 4.4 mmol/L (3.5-5.1); SODIUM SERUM 143 mmol/L (136-145); UREA NITROGEN, BLOOD 12 mg/dL (7-18)
[2024-12-22 07:05] LABS: DIFFERENTIAL COMMENT 1
[2024-12-22 08:00] VITALS: BP 112/57; TEMP 98.1; O2SAT 97
[2024-12-22] MEDS: ACETAMINOPHEN 325 MG TABLET PO PRN (10:09)
[2024-12-22 16:36] VITALS: BP 118/50; TEMP 98.4; O2SAT 96
[2024-12-22] MEDS: ENSURE ENLIVE (VAN) 240 ML LIQUID PO SCH (17:00)
[2024-12-22 17:24] VITALS: TEMP 97
== END 2024-12-22 18:00 | disposition left against medical advice (07) | DRG 312 ==
LOC: ER 14:45 → TELE3 16:59 → MEDSURG3 18:31
PROVIDERS: ADMIT Internal Medicine; ATTEND Internal Medicine
DX: R55 Syncope and collapse (principal); E44.0 Moderate protein-calorie malnutrition; E86.0 Dehydration; J43.9 Emphysema, unspecified; Z76.5 Malingerer [conscious simulation]; Z53.29 Procedure and treatment not carried out because of patient's decision for other reasons; Z87.820 Personal history of traumatic brain injury; Z86.718 Personal history of other venous thrombosis and embolism; G89.4 Chronic pain syndrome; Z85.038 Personal history of other malignant neoplasm of large intestine; I10 Essential (primary) hypertension; E87.6 Hypokalemia; E78.5 Hyperlipidemia, unspecified; E83.51 Hypocalcemia; R73.9 Hyperglycemia, unspecified; R42 Dizziness and giddiness; R51.9 Headache, unspecified; Z91.81 History of falling; Z98.890 Other specified postprocedural states; F17.210 Nicotine dependence, cigarettes, uncomplicated; E88.09 Other disorders of plasma-protein metabolism, not elsewhere classified; Z86.39 Personal history of other endocrine, nutritional and metabolic disease
CPT/HCPCS: 36415; 70450; 71045; 83735; 84100; 84443; 84484; 85025; A4663; G0378; G0480; J1171; J7040

== ENCOUNTER 2024-12-31 21:05 | Inpatient (IN) | payer MEDICARE, OTHER ==
[~2024-12-31] VITALS: Ht 162.6 cm; Wt 37.9 kg
[2024-12-31] MEDS: IV NS 1000 ML 1,000 ML IV STA (21:27)
[2024-12-31 22:02] LABS: BASOPHILS % (AUTO) 0.7 % (0.0-2.0); EOSINOPHILS # (AUTO) 0.1 K/uL (0.0-0.7); EOSINOPHILS % (AUTO) 1.9 % (0.0-7.0); HEMATOCRIT 31.9 % (31.2-41.9); HEMOGLOBIN 10.6 g/dL (10.9-14.3); LYMPHOCYTES # (AUTO) 1.6 K/uL (0.8-4.8); LYMPHOCYTES % (AUTO) 28.6 % (20.5-51.5); MEAN CORPUSCULAR HEMOGLOBIN 29.6 uug (24.7-32.8); MEAN CORPUSCULAR HGB CONC 33 g/dL (32.3-35.6); MEAN CORPUSCULAR VOLUME 89.3 fL (75.5-95.3); MONOCYTES # (AUTO) 0.6 K/uL (0.1-1.30); MONOCYTES % (AUTO) 10.1 % (0.0-11.0); NEUTROPHILS # (AUTO) 3.3 K/uL (1.8-8.9); NEUTROPHILS % (AUTO) 58.7 % (38.5-71.5); PLATELET COUNT (AUTO) 231 K/uL (179-408); RED BLOOD CELL COUNT(AUTO) 3.57 MIL/uL (3.63-4.92); RED CELL DISTRIBUTION WIDTH 14.4 % (12.3-17.7); WHITE BLOOD COUNT (AUTO) 5.6 K/uL (3.8-11.8)
[2024-12-31 22:03] LABS: DIFFERENTIAL COMMENT 1
[2024-12-31 22:08] LABS: CALCIUM 8.1 mg/dL (8.5-10.1); CREATININE 0.7 mg/dL (0.6-1.3); POTASSIUM 3.5 mmol/L (3.5-5.1)
[2024-12-31] MEDS ORDERED: ACETAMINOPHEN 500 MG TABLET ONE (22:21)
[2024-12-31] MEDS ORDERED: IBUPROFEN 200 MG TABLET ONE (22:22)
[2024-12-31] MEDS ORDERED: LORAZEPAM 1 MG TABLET ONE (22:23)
[2024-12-31] MEDS ORDERED: ACETAMINOPHEN 325 MG TABLET PO PRN (22:30)
[2024-12-31] MEDS ORDERED: ONDANSETRON 4 MG/2 ML VIAL IV PRN (22:30)
[2024-12-31] MEDS ORDERED: REMEDY ESSENTIAL ZINC PASTE 113 GM TP PRN (22:30)
[2024-12-31] MEDS ORDERED: MAGNESIUM HYDROXIDE 30 ML LIQUID UDC PO PRN (22:30)
[2024-12-31] MEDS: LORAZEPAM 0.5 MG TABLET PO ONE (22:57)
[2024-12-31] MEDS: IBUPROFEN 200 MG TABLET PO ONE (22:58)
[2024-12-31] MEDS: ACETAMINOPHEN 500 MG TABLET PO ONE (22:59)
[2024-12-31 23:00] VITALS: BP 119/46; TEMP 97.6; O2SAT 97
[2025-01-01] MEDS: TRAMADOL HCL 50 MG TABLET PO PRN (00:30)
[2025-01-01] MEDS: IV D5 1/2 NS 1000 ML 1,000 ML IV PRN (01:50)
[2025-01-01] MEDS: LOPERAMIDE HCL 2 MG CAPSULE PO PRN (01:50)
[2025-01-01 06:15] VITALS: BP 108/59; TEMP 98.1; O2SAT 98
[2025-01-01 07:23] LABS: ALBUMIN 2.8 g/dL (3.4-5.0); BILIRUBIN,TOTAL 0.2 mg/dL (0.2-1.0); CALCIUM 7.5 mg/dL (8.5-10.1); CREATININE 0.5 mg/dL (0.6-1.3); MAGNESIUM 1.9 mg/dL (1.8-2.4); PHOSPHOROUS 2.8 mg/dL (2.5-4.9); POTASSIUM 3.3 mmol/L (3.5-5.1); TOTAL PROTEIN, SERUM 5.5 g/dL (6.4-8.2)
[2025-01-01 07:24] LABS: *BILIRUBIN,URIN NEGATIVE (NEGATIVE); *BLOOD, URINE NEGATIVE (NEGATIVE); *CLARITY,URINE CLEAR (CLEAR); *COLOR,URINE YELLOW (YELLOW); *KETONES,URINE NEGATIVE (NEGATIVE); *PROTEIN,URINE NEGATIVE (NEGATIVE); *UROBILINOGEN,URINE 0.2 E.U./dl (NORMAL); LEUKOCYTE ESTERASE ,URINE NEGATIVE (NEGATIVE); NITRITE, URINE NEGATIVE (NEGATIVE); PH,URINE 5.5 (5.0-8.0); UGLUCOSE NEGATIVE (NEGATIVE)
[2025-01-01 08:01] LABS: BASOPHILS % (AUTO) 0.6 % (0.0-2.0); EOSINOPHILS # (AUTO) 0.1 K/uL (0.0-0.7); EOSINOPHILS % (AUTO) 2.6 % (0.0-7.0); HEMATOCRIT 29.3 % (31.2-41.9); HEMOGLOBIN 9.6 g/dL (10.9-14.3); LYMPHOCYTES # (AUTO) 1.9 K/uL (0.8-4.8); LYMPHOCYTES % (AUTO) 41.5 % (20.5-51.5); MEAN CORPUSCULAR HEMOGLOBIN 28.8 uug (24.7-32.8); MEAN CORPUSCULAR HGB CONC 33 g/dL (32.3-35.6); MEAN CORPUSCULAR VOLUME 88.3 fL (75.5-95.3); MONOCYTES # (AUTO) 0.4 K/uL (0.1-1.30); MONOCYTES % (AUTO) 9.2 % (0.0-11.0); NEUTROPHILS # (AUTO) 2.1 K/uL (1.8-8.9); NEUTROPHILS % (AUTO) 46.1 % (38.5-71.5); PLATELET COUNT (AUTO) 217 K/uL (179-408); RED BLOOD CELL COUNT(AUTO) 3.32 MIL/uL (3.63-4.92); RED CELL DISTRIBUTION WIDTH 14.3 % (12.3-17.7); WHITE BLOOD COUNT (AUTO) 4.5 K/uL (3.8-11.8)
[2025-01-01 08:49] LABS: THYROID STIMULATING HORMONE 2.078 mIU/mL (0.358-3.740)
[2025-01-01 11:25] LABS: IRON, SERUM 29 ug/dL (50-175)
[2025-01-01 11:50] VITALS: BP 113/67; TEMP 98.2; O2SAT 98
[2025-01-01] MEDS: HYDROCODONE/APAP 10-325 MG TABLET PO PRN (14:41)
[2025-01-01 16:25] VITALS: BP 118/69; TEMP 98.2; O2SAT 97
[2025-01-01] MEDS: ENSURE ENLIVE (VAN) 240 ML LIQUID PO SCH (16:57)
[2025-01-01] MEDS: MORPHINE SULFATE 2 MG/1 ML DISP.SYRIN IV PRN (16:57)
[2025-01-01 20:29] VITALS: BP 121/61; TEMP 98.2; O2SAT 98
[2025-01-02 07:15] LABS: BASOPHILS % (AUTO) 0.6 % (0.0-2.0); EOSINOPHILS # (AUTO) 0.3 K/uL (0.0-0.7); EOSINOPHILS % (AUTO) 5.1 % (0.0-7.0); HEMATOCRIT 31.8 % (31.2-41.9); HEMOGLOBIN 10.4 g/dL (10.9-14.3); LYMPHOCYTES # (AUTO) 1.7 K/uL (0.8-4.8); LYMPHOCYTES % (AUTO) 32.6 % (20.5-51.5); MEAN CORPUSCULAR HEMOGLOBIN 28.7 uug (24.7-32.8); MEAN CORPUSCULAR HGB CONC 33 g/dL (32.3-35.6); MEAN CORPUSCULAR VOLUME 88.2 fL (75.5-95.3); MONOCYTES # (AUTO) 0.4 K/uL (0.1-1.30); MONOCYTES % (AUTO) 8.2 % (0.0-11.0); NEUTROPHILS # (AUTO) 2.8 K/uL (1.8-8.9); NEUTROPHILS % (AUTO) 53.5 % (38.5-71.5); PLATELET COUNT (AUTO) 216 K/uL (179-408); RED BLOOD CELL COUNT(AUTO) 3.61 MIL/uL (3.63-4.92); RED CELL DISTRIBUTION WIDTH 14.2 % (12.3-17.7); WHITE BLOOD COUNT (AUTO) 5.2 K/uL (3.8-11.8)
[2025-01-02 07:36] LABS: DIFFERENTIAL COMMENT 1
[2025-01-02 07:58] LABS: ALBUMIN 2.9 g/dL (3.4-5.0); BILIRUBIN,TOTAL 0.2 mg/dL (0.2-1.0); CALCIUM 8.1 mg/dL (8.5-10.1); CREATININE 0.5 mg/dL (0.6-1.3); MAGNESIUM 1.7 mg/dL (1.8-2.4); POTASSIUM 3.6 mmol/L (3.5-5.1); TOTAL PROTEIN, SERUM 5.8 g/dL (6.4-8.2)
[2025-01-02 08:00] VITALS: BP 138/72; TEMP 98; O2SAT 92
[2025-01-02] MEDS: MAGNESIUM SULFATE/D5W 100 ML IV SCH (11:05)
[2025-01-02 16:00] VITALS: BP 99/45; TEMP 98.1; O2SAT 97
[2025-01-02] MEDS: MORPHINE SULFATE 2 MG/1 ML DISP.SYRIN IV PRN (16:43)
[2025-01-03] MEDS: CYANOCOBALAMIN 1,000 MCG TABLET PO SCH (08:19)
[2025-01-03] MEDS: HYDROCODONE/APAP 5-325MG TABLET PO PRN (11:26)
[2025-01-03 15:47] VITALS: BP 104/43; TEMP 98; O2SAT 96
[2025-01-03] MEDS ORDERED: MAGN400O6 PO (16:41)
[2025-01-03] MEDS ORDERED: CYAN-51 PO (16:41)
[2025-01-03] MEDS ORDERED: HYDR-3972 PO (16:41)
[2025-01-03] MEDS ORDERED: CELE100C PO (16:41)
[2025-01-03] MEDS ORDERED: FAMO10TA41 PO (16:41)
[2025-01-03] MEDS ORDERED: Lactose-Free Food PO (16:41)
[2025-01-03] MEDS ORDERED: ACET325T53 PO (16:41)
[2025-01-03] MEDS ORDERED: FERR325T28 PO (16:55)
== END 2025-01-03 18:40 | DRG 641 ==
LOC: ER 21:05 → MEDSURG3 22:29
PROVIDERS: ADMIT Nurse Practitioner Acute Care; ATTEND Internal Medicine
DX: E53.8 Deficiency of other specified B group vitamins (principal); Z68.1 Body mass index [BMI] 19.9 or less, adult; Z59.02 Unsheltered homelessness; E27.40 Unspecified adrenocortical insufficiency; K92.2 Gastrointestinal hemorrhage, unspecified; R62.7 Adult failure to thrive; G89.4 Chronic pain syndrome; J43.9 Emphysema, unspecified; D50.9 Iron deficiency anemia, unspecified; R29.6 Repeated falls; S09.90XA Unspecified injury of head, initial encounter; W01.0XXA Fall on same level from slipping, tripping and stumbling without subsequent striking against object, initial encounter; Y93.01 Activity, walking, marching and hiking; Y92.480 Sidewalk as the place of occurrence of the external cause; E78.5 Hyperlipidemia, unspecified; L21.9 Seborrheic dermatitis, unspecified; R26.81 Unsteadiness on feet; G62.9 Polyneuropathy, unspecified; I73.9 Peripheral vascular disease, unspecified; E87.6 Hypokalemia; F32.A Depression, unspecified; G47.00 Insomnia, unspecified; F41.9 Anxiety disorder, unspecified; I10 Essential (primary) hypertension; Z85.038 Personal history of other malignant neoplasm of large intestine; Z87.891 Personal history of nicotine dependence; Z87.81 Personal history of (healed) traumatic fracture; Z87.820 Personal history of traumatic brain injury; Z85.820 Personal history of malignant melanoma of skin
CPT/HCPCS: 36415; 70450; 82378; 83550; 83735; 84100; 84443; 85025; 87086; A4663; A9150; G0378; J2270; J3475; J7040

== ENCOUNTER 2025-01-04 10:23 | Inpatient (IN) | payer MEDICARE, OTHER ==
[~2025-01-04] VITALS: Ht 167.6 cm; Wt 38.6 kg
[~2025-01-04 10:23] MED LIST changes: +ACET325T53 PO; +CELE100C PO; +CYAN-51 PO; +FAMO10TA41 PO; +FERR325T28 PO; +HYDR-3972 PO; -HYDR2TAB4 PO; +Lactose-Free Food PO; +MAGN400O6 PO; -NALO4SPR BNOSTRILS; -OXYC15TA82 PO
[2025-01-04] MEDS: ONDANSETRON 4 MG/2 ML VIAL IV ONE (11:00)
[2025-01-04 11:16] LABS: *BLOOD, URINE NEGATIVE (NEGATIVE); *CLARITY,URINE SLIGHTLY CLOUDY (CLEAR); *COLOR,URINE YELLOW (YELLOW); *KETONES,URINE NEGATIVE (NEGATIVE); *PROTEIN,URINE 2+ (NEGATIVE); LEUKOCYTE ESTERASE ,URINE NEGATIVE (NEGATIVE); NITRITE, URINE NEGATIVE (NEGATIVE); PH,URINE 5.5 (5.0-8.0); UGLUCOSE TRACE (NEGATIVE)
[2025-01-04 11:49] LABS: *BILIRUBIN,URIN 1+ (NEGATIVE)
[2025-01-04 11:50] LABS: BASOPHILS % (AUTO) 0.3 % (0.0-2.0); EOSINOPHILS # (AUTO) 0.1 K/uL (0.0-0.7); EOSINOPHILS % (AUTO) 1.3 % (0.0-7.0); HEMATOCRIT 36.6 % (31.2-41.9); HEMOGLOBIN 11.7 g/dL (10.9-14.3); LYMPHOCYTES # (AUTO) 0.9 K/uL (0.8-4.8); LYMPHOCYTES % (AUTO) 10.3 % (20.5-51.5); MEAN CORPUSCULAR HEMOGLOBIN 28.8 uug (24.7-32.8); MEAN CORPUSCULAR HGB CONC 32 g/dL (32.3-35.6); MEAN CORPUSCULAR VOLUME 89.7 fL (75.5-95.3); MONOCYTES # (AUTO) 0.5 K/uL (0.1-1.30); MONOCYTES % (AUTO) 5.6 % (0.0-11.0); NEUTROPHILS # (AUTO) 6.9 K/uL (1.8-8.9); NEUTROPHILS % (AUTO) 82.5 % (38.5-71.5); PLATELET COUNT (AUTO) 231 K/uL (179-408); RED BLOOD CELL COUNT(AUTO) 4.07 MIL/uL (3.63-4.92); RED CELL DISTRIBUTION WIDTH 14.5 % (12.3-17.7); WHITE BLOOD COUNT (AUTO) 8.4 K/uL (3.8-11.8)
[2025-01-04 11:53] LABS: DIFFERENTIAL COMMENT 1
[2025-01-04] MEDS: IV NORMAL SALINE 1000 ML BAG IV ONE (11:58)
[2025-01-04 12:03] LABS: ALBUMIN 3.5 g/dL (3.4-5.0); BILIRUBIN,DIRECT 0.2 mg/dL (0.0-0.2); BILIRUBIN,TOTAL 0.4 mg/dL (0.2-1.0); CALCIUM 9.7 mg/dL (8.5-10.1); CREATININE 0.6 mg/dL (0.6-1.3); POTASSIUM 3.8 mmol/L (3.5-5.1); TOTAL PROTEIN, SERUM 7.1 g/dL (6.4-8.2)
[2025-01-04] MEDS ORDERED: ONDANSETRON 4 MG/2 ML VIAL ONE (12:04)
[2025-01-04] MEDS ORDERED: KETOROLAC TROMETHAMINE 15 MG INJ ONE (12:07)
[2025-01-04] MEDS ORDERED: HYDROCODONE/APAP 10-325 MG TABLET ONE (12:07)
[2025-01-04] MEDS: KETOROLAC TROMETHAMINE 15 MG INJ IVP ONE (12:11)
[2025-01-04] MEDS: HYDROCODONE/APAP 10-325 MG TABLET PO ONE (12:11)
[2025-01-04 12:50] LABS: BACTERIA,URINE MODERATE /HPF (NONE SEEN); URINE AMORPHOUS URATE MODERATE /HPF; WBC,URINE NONE SEEN /HPF (0-3)
[2025-01-04] MEDS ORDERED: ONDANSETRON 4 MG/2 ML VIAL IV PRN (13:15)
[2025-01-04] MEDS ORDERED: ACETAMINOPHEN 325 MG TABLET PO PRN ×2 (13:15→15:45)
[2025-01-04] MEDS ORDERED: REMEDY ESSENTIAL ZINC PASTE 113 GM TP PRN (13:15)
[2025-01-04] MEDS ORDERED: MAGNESIUM HYDROXIDE 30 ML LIQUID UDC PO PRN ×2 (13:15→14:15)
[2025-01-04 13:34] VITALS: O2SAT 97
[2025-01-04] MEDS ORDERED: HYDROCODONE/APAP 5-325MG TABLET PO PRN (14:15)
[2025-01-04] MEDS ORDERED: ACETAMINOPHEN 325 MG TABLET-SA PATIENTS-PAIN ONLY PO PRN (14:15)
[2025-01-04 14:32] LABS: THYROID STIMULATING HORMONE 0.532 mIU/mL (0.358-3.740)
[2025-01-04] MEDS ORDERED: Medication Not On Formulary EA ([Lactose-Free Food] 240 ML) PO SCH (17:00)
[2025-01-04] MEDS ORDERED: ENSURE ENLIVE (VAN) 240 ML LIQUID PO SCH (17:00)
[2025-01-04] MEDS ORDERED: ENOXAPARIN SODIUM 40 MG/0.4 ML DISP.SYRIN SQ SCH (21:00)
[2025-01-05] MEDS ORDERED: PANTOPRAZOLE SODIUM 40 MG TABLET.DR PO SCH (07:00)
[2025-01-05] MEDS ORDERED: CELECOXIB 100 MG CAPSULE PO SCH (09:00)
[2025-01-05] MEDS ORDERED: Medication Not On Formulary EA (Famotidine (Pepcid Ac) 10 MG) PO SCH (09:00)
[2025-01-05] MEDS ORDERED: CYANOCOBALAMIN 1,000 MCG TABLET PO SCH (09:00)
== END 2025-01-04 15:10 | disposition left against medical advice (07) | DRG 641 ==
LOC: ER 10:23 → MEDSURG3 14:42
PROVIDERS: ADMIT Student in an Organized Health Care Education/Training Program; ATTEND Student in an Organized Health Care Education/Training Program
PROC: 05HC33Z Insertion of Infusion Device into Left Basilic Vein, Percutaneous Approach (ICD-10-PCS; principal; 2025-01-04)
DX: E86.0 Dehydration (principal); Z59.00 Homelessness unspecified; E44.0 Moderate protein-calorie malnutrition; E27.40 Unspecified adrenocortical insufficiency; R53.1 Weakness; E87.6 Hypokalemia; E78.5 Hyperlipidemia, unspecified; L21.9 Seborrheic dermatitis, unspecified; G89.4 Chronic pain syndrome; Z53.29 Procedure and treatment not carried out because of patient's decision for other reasons; Z59.2 Discord with neighbors, lodgers and landlord; F41.9 Anxiety disorder, unspecified; F32.A Depression, unspecified; G47.00 Insomnia, unspecified; E53.8 Deficiency of other specified B group vitamins; J43.9 Emphysema, unspecified; I73.9 Peripheral vascular disease, unspecified; Z87.891 Personal history of nicotine dependence; Z86.718 Personal history of other venous thrombosis and embolism; Z87.81 Personal history of (healed) traumatic fracture; Z87.820 Personal history of traumatic brain injury; Z85.038 Personal history of other malignant neoplasm of large intestine; Z85.820 Personal history of malignant melanoma of skin; Z98.890 Other specified postprocedural states
CPT/HCPCS: 36415; 71045; 84443; 85025; 87086; A4606; A4663; G0378; J1885; J2405; J7040

== ENCOUNTER 2025-01-05 15:35 | Emergency (ER) | payer MEDICARE, OTHER ==
[~2025-01-05] VITALS: Ht 167.6 cm; Wt 38.6 kg
[2025-01-05 15:41] VITALS: O2SAT 96
== END 2025-01-05 16:44 | disposition left against medical advice (07) ==
LOC: ER 15:37
DX: Z00.00 Encounter for general adult medical examination without abnormal findings (principal); E78.5 Hyperlipidemia, unspecified; F17.200 Nicotine dependence, unspecified, uncomplicated; I10 Essential (primary) hypertension; Z79.01 Long term (current) use of anticoagulants; Z79.1 Long term (current) use of non-steroidal anti-inflammatories (NSAID); Z85.038 Personal history of other malignant neoplasm of large intestine; Z85.820 Personal history of malignant melanoma of skin; Z86.718 Personal history of other venous thrombosis and embolism; Z87.440 Personal history of urinary (tract) infections; Z87.820 Personal history of traumatic brain injury; Z60.2 Problems related to living alone; Z87.09 Personal history of other diseases of the respiratory system; Z87.39 Personal history of other diseases of the musculoskeletal system and connective tissue; Z88.8 Allergy status to other drugs, medicaments and biological substances
CPT/HCPCS: A4606; A4663

== ENCOUNTER 2025-03-26 17:20 | Inpatient (IN) | payer MEDICARE, OTHER ==
[~2025-03-26] VITALS: Ht 165.1 cm; Wt 38.6 kg
[2025-03-26] MEDS ORDERED: ATOR40TA PO (17:38)
[2025-03-26] MEDS ORDERED: BACL5TAB PO (17:38)
[2025-03-26] MEDS ORDERED: ASPI81TA31 PO (17:38)
[2025-03-26] MEDS ORDERED: ACETAMINOPHEN 500 MG TABLET ONE (18:57)
[2025-03-26] MEDS: ACETAMINOPHEN 500 MG TABLET PO ONE (19:03)
[2025-03-26 19:14] LABS: PLATELET COUNT (AUTO) 257 K/uL (179-408); RED BLOOD CELL COUNT(AUTO) 4.45 MIL/uL (3.63-4.92); RED CELL DISTRIBUTION WIDTH 15.3 % (12.3-17.7); WHITE BLOOD COUNT (AUTO) 6.3 K/uL (3.8-11.8)
[2025-03-26 19:15] VITALS: BP 105/69
[2025-03-26 19:21] LABS: CREATININE 0.5 mg/dL (0.6-1.3); SODIUM SERUM 141.0 mmol/L (136-145); UREA NITROGEN, BLOOD 20.0 mg/dL (7-18)
[2025-03-26 19:25] LABS: ETHANOL < 3 MG/DL (0-10)
[2025-03-26 19:26] LABS: ASPARTATE AMINOTRANSFERASE 14.0 U/L (15-37); TOTAL PROTEIN, SERUM 7.5 g/dL (6.4-8.2)
[2025-03-26 19:36] LABS: *BILIRUBIN,URIN NEGATIVE (NEGATIVE); *BLOOD, URINE NEGATIVE (NEGATIVE); *COLOR,URINE YELLOW (YELLOW); *KETONES,URINE NEGATIVE (NEGATIVE); *PROTEIN,URINE NEGATIVE (NEGATIVE); *UROBILINOGEN,URINE 0.2 E.U./dl (NORMAL); LEUKOCYTE ESTERASE ,URINE NEGATIVE (NEGATIVE); NITRITE, URINE NEGATIVE (NEGATIVE); UGLUCOSE NEGATIVE (NEGATIVE)
[2025-03-26 19:41] LABS: *CLARITY,URINE SLIGHTLY HAZY (CLEAR)
[2025-03-26 19:48] LABS: *AMPHETAMINE, URINE NEGATIVE (NEGATIVE); *BARBITURATE, URINE NEGATIVE (NEGATIVE); *BENZODIAZEPINE, URINE NEGATIVE (NEGATIVE); *CANNABINOID, URINE NEGATIVE (NEGATIVE); *COCCAINE, URINE NEGATIVE (NEGATIVE); *OPIATE, URINE NEGATIVE (NEGATIVE); *PHENCYCLIDINE SCREEN,URINE NEGATIVE (NEGATIVE); FENTANYL, URINE NEGATIVE (NEGATIVE)
[2025-03-26 19:52] LABS: SQUAMOUS EPITHELIAL CELL,UR FEW /HPF (NONE SEEN)
[2025-03-26 19:53] LABS: URINE AMORPHOUS PHOSPHATES MODERATE /HPF
[2025-03-26] MEDS: IV NS 1000 ML 1,000 ML IV ONE (21:03)
[2025-03-26 22:26] VITALS: BP 111/57; TEMP 96.7; O2SAT 96
[2025-03-26] MEDS ORDERED: MAGNESIUM HYDROXIDE 30 ML LIQUID UDC PO PRN ×2 (22:45)
[2025-03-26] MEDS ORDERED: ZOLPIDEM 5 MG TABLET PO PRN (22:45)
[2025-03-26] MEDS ORDERED: ONDANSETRON 4 MG/2 ML VIAL IV PRN (22:45)
[2025-03-26] MEDS ORDERED: REMEDY ESSENTIAL ZINC PASTE 113 GM TP PRN (22:45)
[2025-03-26] MEDS ORDERED: ACETAMINOPHEN 325 MG TABLET PO PRN (22:45)
[2025-03-26] MEDS: IV D5 1/2 NS 1000 ML 1,000 ML IV PRN (23:01)
[2025-03-27 06:48] VITALS: BP 106/54; TEMP 97.7; O2SAT 90
[2025-03-27] MEDS: CELECOXIB 100 MG CAPSULE PO SCH (09:00)
[2025-03-27] MEDS: FERROUS SULFATE 325 MG TABEC PO SCH (09:00)
[2025-03-27] MEDS: ASPIRIN 81 MG TAB.CHEW PO SCH (09:00)
[2025-03-27] MEDS: CYANOCOBALAMIN 1,000 MCG TABLET PO SCH (09:00)
[2025-03-27 12:00] VITALS: BP 101/57; TEMP 98.9; O2SAT 95
[2025-03-27 16:10] VITALS: BP 101/54; TEMP 98.2; O2SAT 98
[2025-03-27 19:45] VITALS: BP 93/50; TEMP 98; O2SAT 96
[2025-03-27] MEDS: ATORVASTATIN 40 MG TABLET PO SCH (21:00)
[2025-03-28 05:56] VITALS: BP 95/51; TEMP 97.5; O2SAT 99
[2025-03-28 11:37] VITALS: BP 110/60; TEMP 98; O2SAT 97
[2025-03-28 15:43] VITALS: BP 101/59; TEMP 98.7; O2SAT 97
[2025-03-28] MEDS: CLOTRIMAZOLE 1% CREAM 30 GM TUBE TOP SCH (17:00)
== END 2025-03-28 18:24 | DRG 641 ==
LOC: ER 17:25 → MEDSURG3 21:40
PROVIDERS: ADMIT Internal Medicine; ATTEND Internal Medicine
DX: E86.0 Dehydration (principal); Z68.1 Body mass index [BMI] 19.9 or less, adult; E44.0 Moderate protein-calorie malnutrition; E27.40 Unspecified adrenocortical insufficiency; R62.7 Adult failure to thrive; G89.4 Chronic pain syndrome; J43.9 Emphysema, unspecified; F32.A Depression, unspecified; G47.00 Insomnia, unspecified; F41.9 Anxiety disorder, unspecified; I73.9 Peripheral vascular disease, unspecified; D64.9 Anemia, unspecified; L21.9 Seborrheic dermatitis, unspecified; Z86.718 Personal history of other venous thrombosis and embolism; Z87.820 Personal history of traumatic brain injury; E88.09 Other disorders of plasma-protein metabolism, not elsewhere classified; E78.5 Hyperlipidemia, unspecified; M81.0 Age-related osteoporosis without current pathological fracture; Z91.148 Patient's other noncompliance with medication regimen for other reason; Z87.891 Personal history of nicotine dependence; Z88.8 Allergy status to other drugs, medicaments and biological substances; I10 Essential (primary) hypertension; C43.9 Malignant melanoma of skin, unspecified; E87.6 Hypokalemia; Z87.81 Personal history of (healed) traumatic fracture; Z79.82 Long term (current) use of aspirin; Z79.899 Other long term (current) drug therapy; R63.0 Anorexia
CPT/HCPCS: 36415; 83690; 85025; A4606; A4663; A9150; G0378; G0480; J7040